=== PATIENT | male | born 1940 | race Caucasian/White ===

== ENCOUNTER 2018-05-31 04:59 | Inpatient (IN) ==
[2018-05-31 05:52] LABS: Hematocrit 53.5 % (42.0-52.0); Hemoglobin 16.9 gm/dL (13.5-18.0); Mean Cell Volume 95.2 fl (78-100); Mean Corpuscular Hemoglobin 30.1 pg (27-31); Mean Corpuscular Hgb Conc 31.6 g/dl (32-36); Mean Platelet Volume 9.7 fl (8-11.3); Neutrophil # 10.6 K/mm3 (1.3-6.0); Neutrophil % 78.5 % (42-75.0); Platelet Count 204 K/mm3 (150-450); Red Blood Count 5.62 M/mm3 (4.7-6.0); Red Cell Distribution Width 13.8 % (11.5-14.0); White Blood Count 13.6 K/mm3 (4.0-10.5)
[2018-05-31 06:11] LABS: Prothrombin Time (Patient) 10.8 Seconds (9.1-10.7)
[2018-05-31 06:12] LABS: INR 1.09 INR (0.92-1.08)
[2018-05-31 06:19] LABS: ALT 12 U/L (19-67); AST 13 U/L (0-48); Albumin * 3.2 gm/dl (3.4-5.0); Alkaline Phosphatase * 116 U/L (50-170); Anion Gap 14.6 mmol/L (6.8-13.8); BNP * 115 pg/mL (5-650); BUN/Creatinine Ratio 13.3 (9.0-21.6); Bilirubin, Total 0.8 mg/dL (0.0-1.1); Blood Urea Nitrogen 15 mg/dL (6-23); Ca. Corrected For Albumin 8.7 mg/dL (8.4-10.2); Calcium * 8.4 mg/dL (7.9-10.9); Carbon Dioxide 23.2 mmol/L (24-32.6); Chloride 110 mmol/L (97-106); Glucose * 95 mg/dL (70-110); Potassium 3.8 mmol/L (3.4-4.6); Sodium 144 mmol/L (132-142); Total Protein 6.5 gm/dL (6.2-8.2)
[2018-05-31 06:20] LABS: Troponin I Less than 0.017 ng/mL (0.00-0.10)
--- NOTE | 2018-05-31 07:30 | ERNOTE ---
Dyspnea - Date Date of Service: 05/31/18 - General Presenting Symptoms: shortness of breath, difficulty of breathing, wheezing Time Seen by Provider: 05/31/18 05:21 Source: patient, family Exam Limitations: no limitations - Immun/Allergies/Home Medications Immunizations: IMMUNIZATION HX Immunizations Up to Date Yes History of Influenza Vaccine No Hx Pneumococcal Vaccination Yes Allergies/Adverse Reactions: Allergies carbamazepine [From Tegretol] Allergy (Mild, Verified 12/15/17 09:09) Hives Penicillins Allergy (Mild, Verified 12/15/17 09:09) Hives Home Medications: HOME MEDICATIONS Aspirin [Aspirin Chewable] 81 mg PO DAILY 09/16/12 [Last Taken Unknown] Metoprolol Tartrate [Lopressor] 12.5 mg PO BID 09/16/12 [Last Taken Unknown] Simvastatin [Zocor] 40 mg PO HS 09/16/12 [Last Taken Unknown] vitamin B complex tablet 1 tab PO DAILY 10/23/17 [Last Taken Unknown] - History of Present Illness Narrative: patient present to ed with c/o dyspnea,and 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 Severity: moderate 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 Initiating event: Reports: none Frequency of episodes: Reports: no prior episodes Modifying Factors - (Improves): Reports: nothing Modifying Factors (Worsens): Reports: nothing Associated Symptoms-Dyspnea: Reports: fever/chills, wheezing, dizziness, lightheadedness Review of Systems - Review of Systems Constitutional: Present: See HPI, weakness, fatigue, malaise EYE: Present: no symptoms reported ENT: Present: no symptoms reported Respiratory: Present: See HPI, shortness of breath, cough, wheezing Cardiology: Present: no symptoms reported Gastrointestinal/Abdominal: Present: no symptoms reported Genitourinary: Present: no symptoms reported Musculoskeletal: Present: no symptoms reported Skin: Present: no symptoms reported Neurological: Present: no symptoms reported Endocrine: Present: no symptoms reported Hematologic/Lymphatic: Present: no symptoms reported Psych: Present: no symptoms reported All Other Systems: All systems neg except as marked Medical History (Last Reviewed 05/31/18 @ 05:05 by Porsha Swain RN) GERD (gastroesophageal reflux disease) (Chronic) Onset Date: Unknown Coronary artery disease (Chronic) Onset Date: Unknown Angina pectoris, unspecified (Inactive) Onset Date: Unknown Hyperlipidemia (Chronic) Onset Date: Unknown HTN (hypertension) (Chronic) Onset Date: Unknown CHF (congestive heart failure) (Chronic) Onset Date: 03/13/16 COPD (chronic obstructive pulmonary disease) Onset Date: Unknown Acute respiratory failure with hypoxia Onset Date: Unknown Brain aneurysm Onset Date: Unknown DVT (deep venous thrombosis) Onset Date: Unknown Depression Onset Date: Unknown History of stress test Onset Date: 07/26/02 History of stress test Onset Date: 02/15/99 Kidney calculi Onset Date: Unknown Subdural hemorrhage Onset Date: ~2004 2000, 2004 3 brain aneurysms Negative Colorectal Cancer Screening using Cologuard Onset Date: 01/20/17 Surgical History: Surgical History (Last Reviewed 05/31/18 @ 05:05 by Porsha Swain RN) H/O lithotripsy (Resolved) Onset Date: Unknown History of cholecystectomy (Resolved) Onset Date: ~2006 H/O brain surgery (Resolved) Onset Date: ~2004 x3; brain aneurysm History of angioplasty Onset Date: ~1997 History of colonoscopy Onset Date: ~2000 History of coronary artery stent placement Onset Date: ~12/2008 Right. History of embolic filter insertion Onset Date: Unknown Family History: Family History (Last Reviewed 05/31/18 @ 05:05 by Porsha Swain RN) Mother Heart disease Brother Heart disease Sister Heart disease Social History: Preferred Language Khmer Do you have any cheondoism or No cultural preference? Smoking Status Former smoker Abuse History No History of abuse Psych History No pertinent hx Alcohol Use none Drug Use none (Last Updated 12/31/17 @ 23:55 by Maxi Barr DO) No Social History Section defined Physical Exam - Physical Exam General Appearance: Present: mild distress, anxious Head Exam: Present: normal inspection, no evidence of injury Eye Exam: Normal inspection: bilateral, PERRL: bilateral, EOMI: bilateral Ears, Nose, Throat: Present: normal ENT inspection, normal pharynx Neck: Present: normal inspection, nontender Respiratory: Present: respiratory distress, crackles, rales, rhonchi, wheezing Cardiovascular/Chest: Present: tachycardia Gastrointestinal/Abdominal: Present: normal bowel sounds, nontender, nondistended, soft, no organomegaly Back Exam: Present: normal inspection, normal range of motion, no CVA tenderness, no vertebral tenderness Extremity Exam: Present: normal inspection, non-tender, normal range of motion, no edema Neurological Exam: Present: alert, oriented, normal mood/affect, no motor/sensory deficits Skin Exam: Present: normal color, warm/dry Lymphatic Exam: Present: no adenopathy Progress - Date and Time Seen: Date and Time: 05/31/18 07:48 patient improved, discussed results of labs and x-rays with patient, case discussed with dr barr, accepted for admission - Results and Orders Patient's Lab Results:: I have reviewed the patient's lab results. - Vital Signs Patient's Vital Signs:: I have reviewed the patient's vital signs. Vital Signs: Vital Signs 05/31/18 05:23 05/31/18 05:26 05/31/18 05:30 Temperature 36.8 C Pulse Rate 85 75 76 Respiratory Rate 28 H 22 H Blood Pressure 147/76 161/84 H O2 Sat by Pulse Oximetry 87 L 93 05/31/18 06:11 05/31/18 07:15 Temperature Pulse Rate 73 73 Respiratory Rate 22 H 22 H Blood Pressure 166/80 H 162/67 H O2 Sat by Pulse Oximetry 96 97 - X-Ray X-Ray #1 X-Ray: chest Interpretation: Interp. by me - pneumonia - CT/Ultrasound CT/Ultrasound Narrative: pneumonia - Progress/Reassessment Chief Complaint: Dyspnea Progress:: Improved - Transfer of Care Expected Disposition: Admit Plan - Plan Plan: to be admitted Departure Clinical Impression: Pneumonia - Departure Disposition: Still a patient Condition: Stable Referrals: Maxi Barr DO [Primary Care Provider] -
[2018-05-31] MEDS ORDERED: ALBUTEROL SULFATE 2.5 MG/0.5 ML VIAL.NEB IH PRN (07:53)
[2018-05-31] MEDS: AZITHROMYCIN 500 MG in DEXTROSE 5 % IN WATER 250 ML IV SCH ×2 (09:13)
--- NOTE | 2018-05-31 16:35 | HP ---
Chief Complaint - Chief Complaint Date of Service: 05/31/18 Time of Service: 12:30 Chief Complaint: Shortness of breath, cough History of Present Illness: Horace is a 78 yo male that presents to the [facility] ER today with suddenly worsened respiratory symptoms of cough, shortness of breath, and hemoptysis that started at 0300 this morning. He reported his first sign of symptoms started two weeks ago with cough. He has progressively been getting weaker and more short of breath until his episode this morning that brought him to the ER. He denies recent travel or sick contacts. He denies GI symptom, fever, chills, or myalgias. In the ER he had a chest xray that showed right upper lobe pneumonia on top of chronic lung disease. He also had a d-dimer that along with the shortness of breath and hemoptysis warranted an evaluation with a chest CT. CT confirmed right upper lobe pneumonia and no evidence of pulmonary embolism. He was initially 87% on room air in the ER and placed on 2lpm to keep sats above 90% Medical History (Last Reviewed 05/31/18 @ 08:56 by Chayo Moran RN) GERD (gastroesophageal reflux disease) (Chronic) Onset Date: Unknown Coronary artery disease (Chronic) Onset Date: Unknown Angina pectoris, unspecified (Inactive) Onset Date: Unknown Hyperlipidemia (Chronic) Onset Date: Unknown HTN (hypertension) (Chronic) Onset Date: Unknown CHF (congestive heart failure) (Chronic) Onset Date: 03/13/16 COPD (chronic obstructive pulmonary disease) Onset Date: Unknown Acute respiratory failure with hypoxia Onset Date: Unknown Brain aneurysm Onset Date: Unknown DVT (deep venous thrombosis) Onset Date: Unknown Depression Onset Date: Unknown History of stress test Onset Date: 07/26/02 History of stress test Onset Date: 02/15/99 Kidney calculi Onset Date: Unknown Subdural hemorrhage Onset Date: ~2004 2000, 2004 3 brain aneurysms Negative Colorectal Cancer Screening using Cologuard Onset Date: 01/20/17 Surgical History: Surgical History (Last Reviewed 05/31/18 @ 08:56 by Chayo Moran RN) H/O lithotripsy (Resolved) Onset Date: Unknown History of cholecystectomy (Resolved) Onset Date: ~2006 H/O brain surgery (Resolved) Onset Date: ~2004 x3; brain aneurysm History of angioplasty Onset Date: ~1997 History of colonoscopy Onset Date: ~2000 History of coronary artery stent placement Onset Date: ~12/2008 Right. History of embolic filter insertion Onset Date: Unknown Family History: Family History (Last Reviewed 05/31/18 @ 05:05 by Porsha Swain RN) Mother Heart disease Brother Heart disease Sister Heart disease Social History: Patient Lives/Resources With Spouse Utilized Occupation retired Preferred Language Tongan Do you have any taoist or No cultural preference? Smoking Status Former smoker Have you smoked in the past 12 No months Abuse History No History of abuse Psych History No pertinent hx Alcohol Use none Drug Use none (Last Updated 12/31/17 @ 23:55 by Maxi Whaley DO) No Social History Section defined Review Of Systems (GEN) - Review of Systems Generalized/Overall Review: Present: Weakness, Fatigue. Absent: Chills, Fever EENTM: Present: No Symptoms Reported Respiratory: Present: Cough, Shortness of Breath, Other - hemoptysis Cardiac: Absent: Chest Pain, Palpitations, Syncope Abdominal: Absent: Nausea, Vomiting, Diarrhea Genitourinary: Present: No Symptoms Reported Musculoskeletal: Present: No Symptoms Reported Neurological: Present: No Symptoms Reported Skin: Present: No Symptoms Reported Immunizations: IMMUNIZATION HX Immunizations Up to Date Yes History of Influenza Vaccine No Hx Pneumococcal Vaccination Yes Allergies/Adverse Reactions: Allergies Allergy/AdvReac Type Severity Reaction Status Date / Time carbamazepine [From Tegretol] Allergy Mild Hives Verified 05/31/18 08:56 Penicillins Allergy Mild Hives Verified 05/31/18 08:56 Home Medications: HOME MEDICATIONS Aspirin [Aspirin Chewable] 81 mg PO DAILY 09/16/12 [Last Taken 05/30/18] Metoprolol Tartrate [Lopressor] 12.5 mg PO BID 09/16/12 [Last Taken 05/30/18] Simvastatin [Zocor] 40 mg PO HS 09/16/12 [Last Taken 05/30/18] vitamin B complex tablet 1 tab PO DAILY 10/23/17 [Last Taken 05/30/18] Exam - Exam Vital Signs: Vital Signs - Last Taken Temp 36.8 C 05/31/18 10:00 Pulse 63 05/31/18 15:20 Resp 20 05/31/18 15:20 BP 134/64 05/31/18 15:20 Pulse Ox 92 L 05/31/18 15:20 Constitutional: Present: Alert, Oriented x3, Cooperative, Mild distress - Tachypnea ENT Exam: Present: normal ENT inspection Eye Exam: bilateral eye: normal inspection Respiratory: Present: respiratory distress - tachypnea, wheezing - right upper lobe Cardiovascular/Chest: Present: regular rate, rhythm, no murmur Peripheral Pulses: radial (R): 2+, radial (L): 2+ Abdomen: Present: Normal bowel sounds, soft, nontender, nondistended Skin Exam: Present: normal color, warm/dry, no cyanosis Neurologic: Present: no motor/sensory deficits, alert, normal mood/affect, oriented x 3 Appearance: Present: appropriate appearance, appropriate insight Eye contact: Present: cooperative, good eye contact, normal speech Diagnostic Studies: Abnormal Lab Results 05/31/18 05/31/18 05/31/18 Range/Units 05:26 05:29 05:50 WBC 13.6 H (4.0-10.5) K/mm3 Hct 53.5 H (42.0-52.0) % MCHC 31.6 L (32-36) g/dl Immature Gran # (Auto) 0.05 H (0.000-0.0310) K/mm3 Neutrophils % 78.5 H (42-75.0) % Lymphocytes % 12.5 L (20-51) % Neutrophils # 10.6 H (1.3-6.0) K/mm3 Monocytes # 1.1 H (0.0-1.0) k/mm3 PT 10.8 H (9.1-10.7) Seconds INR (Anticoag Therapy) 1.09 H (0.92-1.08) INR D-Dimer (0.19-0.49) ug/mL pCO2 (35.0-48.0) mmHg pO2 (83.0-108.0) mmHg HCO3 (21.0-28.0) mmol/L Base Excess (-2.0-3.0) mmol/L ABG pH (7.35-7.45) Sodium 144 H (132-142) mmol/L Plasma Sodium 144 H (130-142) mmol/L Chloride 110 H (97-106) mmol/L Carbon Dioxide 23.2 L (24-32.6) mmol/L Anion Gap 14.6 H (6.8-13.8) mmol/L ALT 12 L (19-67) U/L Albumin 3.2 L (3.4-5.0) gm/dl 05/31/18 05/31/18 Range/Units 05:50 06:20 WBC (4.0-10.5) K/mm3 Hct (42.0-52.0) % MCHC (32-36) g/dl Immature Gran # (Auto) (0.000-0.0310) K/mm3 Neutrophils % (42-75.0) % Lymphocytes % (20-51) % Neutrophils # (1.3-6.0) K/mm3 Monocytes # (0.0-1.0) k/mm3 PT (9.1-10.7) Seconds INR (Anticoag Therapy) (0.92-1.08) INR D-Dimer 0.53 H (0.19-0.49) ug/mL pCO2 26.2 L (35.0-48.0) mmHg pO2 64.8 L (83.0-108.0) mmHg HCO3 18.5 L (21.0-28.0) mmol/L Base Excess -3.3 L (-2.0-3.0) mmol/L ABG pH 7.47 H (7.35-7.45) Sodium (132-142) mmol/L Plasma Sodium (130-142) mmol/L Chloride (97-106) mmol/L Carbon Dioxide (24-32.6) mmol/L Anion Gap (6.8-13.8) mmol/L ALT (19-67) U/L Albumin (3.4-5.0) gm/dl Laboratory Results WBC 13.6 K/mm3 (4.0-10.5) H 05/31/18 05:26 RBC 5.62 M/mm3 (4.7-6.0) 05/31/18 05:26 Hgb 16.9 gm/dL (13.5-18.0) 05/31/18 05:26 Hct 53.5 % (42.0-52.0) H 05/31/18 05:26 MCV 95.2 fl (78-100) 05/31/18 05:26 MCH 30.1 pg (27-31) 05/31/18 05:26 MCHC 31.6 g/dl (32-36) L 05/31/18 05:26 RDW 13.8 % (11.5-14.0) 05/31/18 05:26 Plt Count 204 K/mm3 (150-450) 05/31/18 05:26 MPV 9.7 fl (8-11.3) 05/31/18 05:26 Immature Gran % (Auto) 0.40 % (0.001-0.429) 05/31/18 05:26 Immature Gran # (Auto) 0.05 K/mm3 (0.000-0.0310) H 05/31/18 05:26 Neutrophils % 78.5 % (42-75.0) H 05/31/18 05:26 Lymphocytes % 12.5 % (20-51) L 05/31/18 05:26 Monocytes % 7.7 % (0.0-9) 05/31/18 05:26 Eosinophils % 0.5 % (0.0-3.0) 05/31/18 05:26 Basophils % 0.4 % (0.0-1.0) 05/31/18 05:26 Nucleated RBC % 0.0 k/mm3 (0-1) 05/31/18 05:26 Neutrophils # 10.6 K/mm3 (1.3-6.0) H 05/31/18 05:26 Lymphocytes # 1.69 k/mm3 (1.5-3.5) 05/31/18 05:26 Monocytes # 1.1 k/mm3 (0.0-1.0) H 05/31/18 05:26 Eosinophils # 0.1 k/mm3 (0.0-0.7) 05/31/18 05:26 Absolute Basophils 0.1 k/mm3 (0.0-0.1) 05/31/18 05:26 PT 10.8 Seconds (9.1-10.7) H 05/31/18 05:29 INR (Anticoag Therapy) 1.09 INR (0.92-1.08) H 05/31/18 05:29 PTT (Roman) 26.0 Seconds (24-32) 05/31/18 05:50 D-Dimer 0.53 ug/mL (0.19-0.49) H 05/31/18 05:50 pCO2 26.2 mmHg (35.0-48.0) L 05/31/18 06:20 pO2 64.8 mmHg (83.0-108.0) L 05/31/18 06:20 HCO3 18.5 mmol/L (21.0-28.0) L 05/31/18 06:20 Total CO2 19.3 mmol/L (19.0-24.0) 05/31/18 06:20 Base Excess -3.3 mmol/L (-2.0-3.0) L 05/31/18 06:20 ABG pH 7.47 (7.35-7.45) H 05/31/18 06:20 ABG O2 Sat (Measured) 94.2 % (94.0-98.0) 05/31/18 06:20 Sodium 144 mmol/L (132-142) H 05/31/18 05:50 Plasma Sodium 144 mmol/L (130-142) H 05/31/18 05:50 Potassium 3.8 mmol/L (3.4-4.6) 05/31/18 05:50 Chloride 110 mmol/L (97-106) H 05/31/18 05:50 Carbon Dioxide 23.2 mmol/L (24-32.6) L 05/31/18 05:50 Anion Gap 14.6 mmol/L (6.8-13.8) H 05/31/18 05:50 BUN 15 mg/dL (6-23) 05/31/18 05:50 Creatinine 1.13 mg/dL (0.4-1.4) 05/31/18 05:50 Est GFR (Non-Af Amer) 67 mL/min (60-130) 05/31/18 05:50 BUN/Creatinine Ratio 13.3 (9.0-21.6) 05/31/18 05:50 Random Glucose 95 mg/dL (70-110) 05/31/18 05:50 Calcium 8.4 mg/dL (7.9-10.9) 05/31/18 05:50 Calcium Adj for Albumin 8.7 mg/dL (8.4-10.2) 05/31/18 05:50 Total Bilirubin 0.8 mg/dL (0.0-1.1) 05/31/18 05:50 AST 13 U/L (0-48) 05/31/18 05:50 ALT 12 U/L (19-67) L 05/31/18 05:50 Alkaline Phosphatase 116 U/L (50-170) 05/31/18 05:50 Troponin I Less than 0.017 ng/mL (0.00-0.10) 05/31/18 05:50 B-Natriuretic Peptide 115 pg/mL (5-650) 05/31/18 05:50 Total Protein 6.5 gm/dL (6.2-8.2) 05/31/18 05:50 Albumin 3.2 gm/dl (3.4-5.0) L 05/31/18 05:50 Assessment/Plan - Assessment/Plan (1) Acute respiratory failure Problem: Acute Qualifiers: Respiratory failure complication: hypoxia Qualified Code(s): J96.01 - Acute respiratory failure with hypoxia (2) Pneumonia Assessment: Horace is a 78 yo male with community acquired pneumonia of the right upper lobe. No exposure or symptoms concerning for influenza. Will treat with azithromycin, rocephin, incentive spirometer, and cornet. Will monitor WBC which is elevated. Due to acute respiratory failure secondary to pneumonia, advanced age, and hemoptysis it is expected that treatment will require >2 midnights for treatment, monitoring of response, weaning off oxygen, and discharge to home. Currently on 2lpm to keep sats >90% after he was 87% on room air. Will work to wean from oxygen. Problem: Acute Qualifiers: Pneumonia type: due to unspecified organism Laterality: right Lung location: upper lobe of lung Qualified Code(s): J18.1 - Lobar pneumonia, unspecified organism
[2018-05-31] MEDS: METOPROLOL TARTRATE 25 MG TABLET PO SCH (21:21)
[2018-05-31] MEDS: SIMVASTATIN 40 MG TABLET PO SCH (21:21)
[2018-06-01 06:06] LABS: Albumin * 2.8 gm/dl (3.4-5.0); Anion Gap 12.7 mmol/L (6.8-13.8); BUN/Creatinine Ratio 14.9 (9.0-21.6); Bilirubin, Total 0.7 mg/dL (0.0-1.1); Ca. Corrected For Albumin 9.2 mg/dL (8.4-10.2); Calcium * 8.6 mg/dL (7.9-10.9); Carbon Dioxide 22.1 mmol/L (24-32.6); Potassium 3.8 mmol/L (3.4-4.6); Total Protein 6.1 gm/dL (6.2-8.2)
[2018-06-01 06:08] LABS: Hematocrit 48.2 % (42.0-52.0); Hemoglobin 15.2 gm/dL (13.5-18.0); Mean Cell Volume 92.5 fl (78-100); Mean Corpuscular Hemoglobin 29.2 pg (27-31); Mean Corpuscular Hgb Conc 31.5 g/dl (32-36); Mean Platelet Volume 9.8 fl (8-11.3); Neutrophil # 6.2 K/mm3 (1.3-6.0); Neutrophil % 69.2 % (42-75.0); Platelet Count 193 K/mm3 (150-450); Red Blood Count 5.21 M/mm3 (4.7-6.0); Red Cell Distribution Width 13.8 % (11.5-14.0); White Blood Count 8.9 K/mm3 (4.0-10.5)
[2018-06-01] MEDS: AZITHROMYCIN 500 MG in DEXTROSE 5 % IN WATER 250 ML IV SCH ×2 (08:15)
[2018-06-01] MEDS: METOPROLOL TARTRATE 25 MG TABLET PO SCH ×2 (08:47→20:43)
[2018-06-01] MEDS: ASPIRIN 81 MG TAB.CHEW PO SCH (08:47)
[2018-06-01] MEDS: VITAMIN B COMP W-C 1 TAB TABLET PO SCH (08:47)
[2018-06-01] MEDS: SIMVASTATIN 40 MG TABLET PO SCH (20:43)
--- NOTE | 2018-06-01 22:46 | PN ---
Subjective - Date and Time Seen Date: 06/01/18 Time: 12:45 Subjective Narrative: Horace reports feeling better. He was weaned off of oxygen this morning. He has not done much ambulating today. No fever, chills, nausea, or vomiting. Objective - Vitals Vitals: Last Vital Signs Temp 36.6 C 06/01/18 18:16 Pulse 73 06/01/18 20:43 Resp 20 06/01/18 18:16 BP 133/76 06/01/18 20:43 Pulse Ox 92 L 06/01/18 18:16 - Abnormal Lab Findings Abnormal Lab Findings: Abnormal Lab Results 06/01/18 06/01/18 Range/Units 05:05 05:05 MCHC 31.5 L (32-36) g/dl Immature Gran # (Auto) 0.04 H (0.000-0.0310) K/mm3 Lymphocytes % 18.0 L (20-51) % Monocytes % 10.7 H (0.0-9) % Neutrophils # 6.2 H (1.3-6.0) K/mm3 Chloride 109 H (97-106) mmol/L Carbon Dioxide 22.1 L (24-32.6) mmol/L ALT 9 L (19-67) U/L Total Protein 6.1 L (6.2-8.2) gm/dL Albumin 2.8 L (3.4-5.0) gm/dl - Exam Constitutional: Present: Alert, Oriented x3, Cooperative ENT Exam: Present: TM red Respiratory: Present: lungs clear, normal breath sounds Cardiovascular/Chest: Present: regular rate, rhythm, no edema, no murmur Abdomen: Present: Normal bowel sounds, soft, nontender, nondistended Appearance: Present: appropriate appearance, appropriate insight Assessment/Plan Plan Narrative: Horace has beenweaned off of oxygen at rest. Will need to monitor oxygen with activity and overnight. His WBC has normalized. He has not ambulated. Will have him ambulate and monitor oxygen and monitor how he does with oxygen overnight. Anticipate discharge to home tomorrow on oral cefdinir and azithromycin. - Problems/Diagnosis (1) Acute respiratory failure Problem: Acute Qualifiers: Respiratory failure complication: hypoxia Qualified Code(s): J96.01 - Acute respiratory failure with hypoxia (2) Pneumonia Problem: Acute Qualifiers: Pneumonia type: due to unspecified organism Laterality: right Lung location: upper lobe of lung Qualified Code(s): J18.1 - Lobar pneumonia, unspecified organism
[2018-06-02] MEDS: AZITHROMYCIN 500 MG in DEXTROSE 5 % IN WATER 250 ML IV SCH ×2 (08:00)
[2018-06-02] MEDS: VITAMIN B COMP W-C 1 TAB TABLET PO SCH (08:28)
[2018-06-02] MEDS: ASPIRIN 81 MG TAB.CHEW PO SCH (08:28)
[2018-06-02] MEDS: METOPROLOL TARTRATE 25 MG TABLET PO SCH (08:28)
--- NOTE | 2018-06-02 08:59 | DS ---
(1) Acute respiratory failure Problem: Resolved Qualifiers: Respiratory failure complication: hypoxia Qualified Code(s): J96.01 - Acute respiratory failure with hypoxia (2) Pneumonia Problem: Acute Qualifiers: Pneumonia type: due to unspecified organism Laterality: right Lung location: upper lobe of lung Qualified Code(s): J18.1 - Lobar pneumonia, unspecified organism Description of Stay: Horace is a 78 yo male that was admitted with acute respiratory failure secondary to community acquired pneumonia of the Right upper lobe. This was confirmed by chest xray and chest CT. He had no pulmonary embolism. He was started on rocephin and azithromycin, cornet, and incentive spirometer. He was g radually weaned off 2lpm of oxygen to room air and did well. He is feeling well today and will be discharged to home. He will follow up in a week. He will be continued on cefdinir and azithromycin. Procedures Performed: none Results and Findings: Pending Mircobiology Results 05/31/18 05:50 Blood Blood Culture - Preliminary NO GROWTH AFTER 48 HOURS 05/31/18 05:40 Blood Blood Culture - Preliminary NO GROWTH AFTER 48 HOURS Lab Pending Results 05/31/18 05:26: WBC 13.6 H, RBC 5.62, Hgb 16.9, Hct 53.5 H, MCV 95.2, MCH 30.1, MCHC 31.6 L, RDW 13.8, Plt Count 204, MPV 9.7, Immature Gran % (Auto) 0.40, Immature Gran # (Auto) 0.05 H, Neutrophils % 78.5 H, Lymphocytes % 12.5 L, Monocytes % 7.7, Eosinophils % 0.5, Basophils % 0.4, Nucleated RBC % 0.0, Neutrophils # 10.6 H, Lymphocytes # 1.69, Monocytes # 1.1 H, Eosinophils # 0.1, Absolute Basophils 0.1 05/31/18 05:29: PT 10.8 H, INR (Anticoag Therapy) 1.09 H 05/31/18 05:50: Sodium 144 H, Plasma Sodium 144 H, Potassium 3.8, Chloride 110 H, Carbon Dioxide 23.2 L, Anion Gap 14.6 H, BUN 15, Creatinine 1.13, Est GFR (Non-Af Amer) 67, BUN/Creatinine Ratio 13.3, Random Glucose 95, Calcium 8.4, Calcium Adj for Albumin 8.7, Total Bilirubin 0.8, AST 13, ALT 12 L, Alkaline Phosphatase 116, Troponin I Less than 0.017, B-Natriuretic Peptide 115, Total Protein 6.5, Albumin 3.2 L 05/31/18 05:50: D-Dimer 0.53 H 05/31/18 05:50: PTT (Cuming) 26.0 05/31/18 06:20: pCO2 26.2 L, pO2 64.8 L, HCO3 18.5 L, Total CO2 19.3, Base Excess -3.3 L, ABG pH 7.47 H, ABG O2 Sat (Measured) 94.2 06/01/18 05:05: WBC 8.9 D, RBC 5.21, Hgb 15.2, Hct 48.2, MCV 92.5, MCH 29.2, MCHC 31.5 L, RDW 13.8, Plt Count 193, MPV 9.8, Immature Gran % (Auto) 0.40, Immature Gran # (Auto) 0.04 H, Neutrophils % 69.2, Lymphocytes % 18.0 L, Monocytes % 10.7 H, Eosinophils % 1.1, Basophils % 0.6, Nucleated RBC % 0.0, Neutrophils # 6.2 H, Lymphocytes # 1.61, Monocytes # 1.0, Eosinophils # 0.1, Absolute Basophils 0.1 06/01/18 05:05: Sodium 140, Plasma Sodium 140, Potassium 3.8, Chloride 109 H, Carbon Dioxide 22.1 L, Anion Gap 12.7, BUN 14, Creatinine 0.94, Est GFR (Non-Af Amer) 83 D, BUN/Creatinine Ratio 14.9, Random Glucose 99, Calcium 8.6, Calcium Adj for Albumin 9.2, Total Bilirubin 0.7, AST 16, ALT 9 L, Alkaline Phosphatase 100, Total Protein 6.1 L, Albumin 2.8 L Discharge Location: Home Disposition: Home self-care Condition: Good Discharge Activity: Activity as tolerated Discharge Diet: General/regular food Referrals: Maxi Whaley DO [Primary Care Provider] - One Week Problem Oriented Discharge Instructions to Patient/Family: Community-Acquired Pneumonia, Adult, [id number] Additional Patient Instructions (free text): -Please make TCM appointment unless intermediate discharge. Thank you! Norma @ [phone]. Prescriptions (Any new or edited meds): Azithromycin [Zithromax] 250 mg PO DAILY #3 tab Cefdinir [Omnicef] 300 mg PO Q12H #20 cap Complete Home Medications List: Complete Home Medication List: Aspirin [Aspirin Chewable] 81 mg PO DAILY 09/16/12 Metoprolol Tartrate [Lopressor] 12.5 mg PO BID 09/16/12 Simvastatin [Zocor] 40 mg PO HS 09/16/12 vitamin B complex tablet 1 tab PO DAILY 10/23/17 Azithromycin [Zithromax] 250 mg PO DAILY #3 tab 06/02/18 Cefdinir [Omnicef] 300 mg PO Q12H #20 cap 06/02/18
[2018-06-02 09:56] VITALS: BP 138/70
== END 2018-06-02 10:00 | disposition home or self-care (01) | DRG 193 ==
LOC: ER 04:59 → MS 07:48
PROVIDERS: ADMIT Family Medicine; ATTEND Family Medicine
CPT/HCPCS: 36415; 36600; 71020; 71046; 71275; 80053; 82803; 83519; 83880; 84484; 85025; 85379; 85610; 85730; 87040; 93005; 94760; 99284; Q9967

== ENCOUNTER 2019-03-11 02:32 | Observation (INO) ==
[2019-03-11] MEDS ORDERED: NITROGLYCERIN 0.4 MG/TAB BTL SL PRN (02:51)
[2019-03-11] MEDS ORDERED: ASPIRIN 81 MG TAB.CHEW PO ONE (02:55)
--- NOTE | 2019-03-11 03:09 | ERNOTE ---
Chest Pain/Cardiac HPI Chief Complaint: Chest Pain Time Seen by Provider: 03/11/19 02:38 Source: patient Exam Limitations: no limitations Immunizations: IMMUNIZATION HX Immunizations Up to Date Yes History of Influenza Vaccine No Hx Pneumococcal Vaccination Yes Allergies/Adverse Reactions: Allergies carbamazepine [From Tegretol] Allergy (Mild, Verified 05/31/18 08:56) Hives Penicillins Allergy (Mild, Verified 05/31/18 08:56) Hives Home Medications: HOME MEDICATIONS Aspirin [Aspirin Chewable] 81 mg PO DAILY 09/16/12 [Last Taken 05/30/18] metoprolol tartrate 25 mg tablet 12.5 mg PO BID #90 tab 06/09/18 [Last Taken Unknown] simvastatin 40 mg tablet 40 mg PO HS #90 tab 06/09/18 [Last Taken Unknown] omeprazole 20 mg capsule,delayed release 20 mg PO DAILY 12/13/18 [Last Taken Unknown] Narrative: Patient states states he awoke about 00:30 to use the bathroom and had a pressure type chest pain on the left side. He tried resting which did not seem to help. Upon presentation his O2 saturations in the low 80% patient had res pirations of 40/min. Timing: constant Severity/Quality: pressure Location: left chest Chest Pain Radiation: no radiation Activities at Onset: sleep Modifying Factors - Improves: Present: nothing Modifying Factors - Worsens: Present: other - activity Nitro Today/Relief: no nitro taken today Aspirin Treatment Today: 81 mg x 1, provided at home Associated Symptoms: Present: shortness of breath - for the past week Review of Systems - Review of Systems Constitutional: Present: recent illness - cold. Absent: fever, chills, fatigue, malaise EYE: Absent: vision changes ENT: Present: nose congestion, nasal drainage. Absent: sore throat Respiratory: Present: See HPI, shortness of breath Cardiology: Present: See HPI, chest pain. Absent: palpitations, edema Gastrointestinal/Abdominal: Absent: nausea, vomiting Genitourinary: Absent: frequency, dysuria Musculoskeletal: Absent: back pain, muscle pain Skin: Absent: rash Neurological: Absent: headache, dizziness/light-headedness Endocrine: Absent: excessive sweating, flushing Hematologic/Lymphatic: Absent: easy bruising, easy bleeding Medical History (Last Reviewed 03/11/19 @ 03:07 by Kenroy Hollins DO) COPD (chronic obstructive pulmonary disease) (Chronic) GERD (gastroesophageal reflux disease) (Chronic) Onset Date: Unknown Coronary artery disease (Chronic) Onset Date: Unknown Angina pectoris, unspecified (Inactive) Onset Date: Unknown Hyperlipidemia (Chronic) Onset Date: Unknown HTN (hypertension) (Chronic) Onset Date: Unknown CHF (congestive heart failure) (Chronic) Onset Date: 03/13/16 COPD (chronic obstructive pulmonary disease) Onset Date: Unknown Acute respiratory failure with hypoxia Onset Date: Unknown Brain aneurysm Onset Date: Unknown DVT (deep venous thrombosis) Onset Date: Unknown Depression Onset Date: Unknown History of stress test Onset Date: 07/26/02 History of stress test Onset Date: 02/15/99 Kidney calculi Onset Date: Unknown Subdural hemorrhage Onset Date: ~2004 2000, 2004 3 brain aneurysms Negative Colorectal Cancer Screening using Cologuard Onset Date: 01/20/17 Surgical History: Surgical History (Last Reviewed 03/11/19 @ 03:07 by Kenroy Hollins DO) H/O lithotripsy (Resolved) Onset Date: Unknown History of cholecystectomy (Resolved) Onset Date: ~2006 H/O brain surgery (Resolved) Onset Date: ~2004 x3; brain aneurysm History of angioplasty Onset Date: ~1997 History of colonoscopy Onset Date: ~2000 History of coronary artery stent placement Onset Date: ~12/2008 Right. History of embolic filter insertion Onset Date: Unknown Family History: Family History (Last Reviewed 03/11/19 @ 03:07 by Kenroy Hollins DO) Mother Heart disease Brother Heart disease Sister Heart disease Social History: (Last Reviewed 03/11/19 @ 03:07 by Kenroy Hollins DO) Social History: adopted: No group home: No Marital status: household members: spouse number of children: 2 current occupational status: retired Service: Yes branch: [employer] status: discharged assignments: [employer] Tobacco: Smoking Status: Former smoker Alcohol: alcohol intake: current Alcohol type: beer alcohol intake frequency: holiday/special occasion Dietary Habits: caffeine: Yes Type: coffee Physical Exam - Physical Exam General Appearance: Present: wd/wn, alert, mild distress Head Exam: Present: normal inspection, no evidence of injury Ears, Nose, Throat: Present: normal except -, nasal congestion Neck: Present: normal inspection, nontender, supple Respiratory: Present: decreased breath sounds, other - tachypnea. Absent: wheezing Cardiovascular/Chest: Present: regular rate, rhythm, no murmur Gastrointestinal/Abdominal: Present: normal bowel sounds, nontender, nondistended, soft Back Exam: Present: normal inspection, normal range of motion Extremity Exam: Present: normal inspection, normal range of motion, no edema Neurological Exam: Present: alert, oriented, normal mood/affect, no motor/sensory deficits Skin Exam: Present: normal color, warm/dry Lymphatic Exam: Present: no adenopathy Progress - Results and Orders Patient's Lab Results:: I have reviewed the patient's lab results. Results and Orders: Laboratory Tests 03/11/19 03/11/19 03/11/19 03:45 03:45 03:45 WBC 9.0 Hgb 13.4 L Hct 43.2 Plt Count 237 D-Dimer 1.47 H Sodium 145 H Potassium 4.0 Chloride 113 H Carbon Dioxide 22.6 L BUN 18 Creatinine 1.09 Random Glucose 105 Calcium 8.2 Total Bilirubin 0.7 AST 12 ALT 11 L Alkaline Phosphatase 107 Troponin I 0.034 Total Protein 6.2 Albumin 2.7 L 03/11/19 05:45 WBC Hgb Hct Plt Count D-Dimer Sodium Potassium Chloride Carbon Dioxide BUN Creatinine Random Glucose Calcium Total Bilirubin AST ALT Alkaline Phosphatase Troponin I 0.023 Total Protein Albumin - Vital Signs Patient's Vital Signs:: I have reviewed the patient's vital signs. Vital Signs: Vital Signs 03/11/19 02:38 Temperature 36.1 C Pulse Rate 86 Respiratory Rate 20 Blood Pressure 141/76 O2 Sat by Pulse Oximetry 96 - EKG EKG #1 EKG: NSR, RBBB, nonspecific ST T wave changes EKG read: Interp. by me - X-Ray X-Ray #1 X-Ray: chest Interpretation: Interp. by me X-ray Comments: Possible infiltrate left lower lobe retrocardiac - CT/Ultrasound CT/Ultrasound Narrative: CTA chest. 1. No thoracic aortic aneurysm. 2. No definite pulmonary embolus noted. 3. Moderately dense LAD and circumflex coronary artery vascular calcium noted. No pericardial effusion. 4. Moderate bilateral pleural effusions with patchy lower lung zone infiltrates greater on the left - Progress/Reassessment Chief Complaint: Chest Pain Progress:: Improved Progress Note-Subjective: 03/11/19 07:[address] Whaley he agrees with admission with antibiotics and steroids. Departure Clinical Impression: Acute exacerbation of chronic obstructive pulmonary disease (COPD) - Departure Disposition: Still a patient Condition: Stable
[2019-03-11 03:47] LABS: Hematocrit 43.2 % (42.0-52.0); Hemoglobin 13.4 gm/dL (13.5-18.0); Mean Cell Volume 87.8 fl (78-100); Mean Corpuscular Hemoglobin 27.2 pg (27-31); Mean Platelet Volume 9.6 fl (8-11.3); Neutrophil # 6.8 K/mm3 (1.3-6.0); Neutrophil % 75.3 % (42-75.0); Platelet Count 237 K/mm3 (150-450); Red Blood Count 4.92 M/mm3 (4.7-6.0); Red Cell Distribution Width 14.6 % (11.5-14.0)
[2019-03-11 04:04] LABS: BUN/Creatinine Ratio 16.5 (9.0-21.6)
[2019-03-11 04:05] LABS: Albumin * 2.7 gm/dl (3.4-5.0); Anion Gap 13.4 mmol/L (6.8-13.8); Bilirubin, Total 0.7 mg/dL (0.0-1.1); Ca. Corrected For Albumin 8.9 mg/dL (8.4-10.2); Calcium * 8.2 mg/dL (7.9-10.9); Carbon Dioxide 22.6 mmol/L (24-32.6); Total Protein 6.2 gm/dL (6.2-8.2); Troponin I 0.034 ng/mL (0.00-0.10)
[2019-03-11] MEDS ORDERED: METHYLPREDNISOLONE SOD SUCC/PF 125 MG/2 ML VIAL IV ONE (07:02)
[2019-03-11] MEDS ORDERED: cefTRIAXone SODIUM 1,000 MG/100 ML BAG IV ONE (07:02)
[2019-03-11] MEDS ORDERED: AZITHROMYCIN 250 MG TABLET PO ONE (07:17)
--- NOTE | 2019-03-11 13:31 | HP ---
Chief Complaint - Chief Complaint Date of Service: 03/11/19 Time of Service: 12:30 Chief Complaint: Abdominal pain, constipation, shortness of breath, chest pain History of Present Illness: Horace is a 79 yo male with pulmonary fibrosis and COPD who presents to the [facility] ER with 12 hours of abdominal pain and increase in size. He reports that it is difficult to take a deep breath in due to his abdomen and that makes him more short of breath than usual. He reports he has been passing gas and had a good bowel movement this morning but it has not improved his symptoms. She denies change in cough, fever, chills, nausea, or vomiting. He presented to the ER for continued abdominal pain and shortness of breath. He also reported chest discomfort in the ER. EKG, bloodwork, chest xray, and chest CT were completed in the ER to evaluate chest pain and shortness of breath. He had an elevated ddimer that precipitated the evaluation by chest CT. There was no pulmonary embolism present. There is pulmonary fibrosis and bilateral atelectasis. There is no evidence of infiltrate. In the ER he is reported to have walked in on room air and his SpO2 was 80%. He was placed on 3lpm of oxygen and has been about 95% or above ever since. He typically runs 88-92% in clinic and is not chronically on oxygen. Medical History (Last Reviewed 03/11/19 @ 03:07 by Kenroy Hollins DO) COPD (chronic obstructive pulmonary disease) (Chronic) GERD (gastroesophageal reflux disease) (Chronic) Onset Date: Unknown Coronary artery disease (Chronic) Onset Date: Unknown Angina pectoris, unspecified (Inactive) Onset Date: Unknown Hyperlipidemia (Chronic) Onset Date: Unknown HTN (hypertension) (Chronic) Onset Date: Unknown CHF (congestive heart failure) (Chronic) Onset Date: 03/13/16 COPD (chronic obstructive pulmonary disease) Onset Date: Unknown Acute respiratory failure with hypoxia Onset Date: Unknown Brain aneurysm Onset Date: Unknown DVT (deep venous thrombosis) Onset Date: Unknown Depression Onset Date: Unknown History of stress test Onset Date: 07/26/02 History of stress test Onset Date: 02/15/99 Kidney calculi Onset Date: Unknown Subdural hemorrhage Onset Date: ~2004 2000, 2004 3 brain aneurysms Negative Colorectal Cancer Screening using Cologuard Onset Date: 01/20/17 Surgical History: Surgical History (Last Reviewed 03/11/19 @ 03:07 by Kenroy Hollins DO) H/O lithotripsy (Resolved) Onset Date: Unknown History of cholecystectomy (Resolved) Onset Date: ~2006 H/O brain surgery (Resolved) Onset Date: ~2004 x3; brain aneurysm History of angioplasty Onset Date: ~1997 History of colonoscopy Onset Date: ~2000 History of coronary artery stent placement Onset Date: ~12/2008 Right. History of embolic filter insertion Onset Date: Unknown Family History: Family History (Last Reviewed 03/11/19 @ 03:07 by Kenroy Hollins DO) Mother Heart disease Brother Heart disease Sister Heart disease Social History: (Last Reviewed 03/11/19 @ 03:07 by Kenroy Hollins DO) Social History: adopted: No long term: No Marital status: household members: spouse number of children: 2 current occupational status: retired Service: Yes branch: [employer] status: discharged assignments: [employer] Tobacco: Smoking Status: Former smoker Alcohol: alcohol intake: current Alcohol type: beer alcohol intake frequency: holiday/special occasion Dietary Habits: caffeine: Yes Type: coffee Review Of Systems (GEN) - Review of Systems Generalized/Overall Review: Present: Weakness. Absent: Chills, Fever EENTM: Present: No Symptoms Reported Respiratory: Present: Shortness of Breath. Absent: Cough Cardiac: Present: Chest Pain. Absent: Edema, Palpitations, Syncope Abdominal: Present: Abdominal Pain, Constipation. Absent: Nausea, Vomiting, Hematemesis, Diarrhea, Melena, Bright blood from rectum Genitourinary: Present: No Symptoms Reported Musculoskeletal: Present: No Symptoms Reported Neurological: Present: No Symptoms Reported Skin: Present: No Symptoms Reported Endocrine: Present: No Symptoms Reported Immunizations: IMMUNIZATION HX Immunizations Up to Date Yes History of Influenza Vaccine No Hx Pneumococcal Vaccination Yes Allergies/Adverse Reactions: Allergies Allergy/AdvReac Type Severity Reaction Status Date / Time carbamazepine [From Tegretol] Allergy Mild Hives Verified 05/31/18 08:56 Penicillins Allergy Mild Hives Verified 05/31/18 08:56 Home Medications: HOME MEDICATIONS Aspirin [Aspirin Chewable] 81 mg PO DAILY 09/16/12 [Last Taken 05/30/18] metoprolol tartrate 25 mg tablet 12.5 mg PO BID #90 tab 06/09/18 [Last Taken Unknown] simvastatin 40 mg tablet 40 mg PO HS #90 tab 06/09/18 [Last Taken Unknown] omeprazole 20 mg capsule,delayed release 20 mg PO DAILY 12/13/18 [Last Taken Unknown] Exam - Exam Vital Signs: Vital Signs - Last Taken Temp 37.8 C 03/11/19 07:48 Pulse 70 03/11/19 07:48 Resp 28 H 03/11/19 07:48 BP 139/77 03/11/19 07:48 Pulse Ox 94 03/11/19 07:48 Constitutional: Present: Alert, Oriented x3, Cooperative ENT Exam: Present: hearing grossly normal Eye Exam: bilateral eye: normal inspection Respiratory: Present: lungs clear, respiratory distress - mild distress with tachypnea Cardiovascular/Chest: Present: regular rate, rhythm, no murmur Abdomen: Present: Normal bowel sounds, soft, tender - diffuse Extremity: Present: normal inspection Skin Exam: Present: normal color, warm/dry, no cyanosis Appearance: Present: appropriate appearance, appropriate insight Eye contact: Present: cooperative, good eye contact, normal speech Thoughts: Present: normal thought pattern, no apparent hallucination Diagnostic Studies: Abnormal Lab Results 03/11/19 03/11/19 03/11/19 Range/Units 03:45 03:45 03:45 Hgb 13.4 L (13.5-18.0) gm/dL MCHC 31.0 L (32-36) g/dl RDW 14.6 H (11.5-14.0) % Immature Gran # (Auto) 0.04 H (0.000-0.0310) K/mm3 Neutrophils % 75.3 H (42-75.0) % Lymphocytes % 12.9 L (20-51) % Monocytes % 10.7 H (0.0-9) % Neutrophils # 6.8 H (1.3-6.0) K/mm3 Lymphocytes # 1.16 L (1.5-3.5) k/mm3 D-Dimer 1.47 H (0.19-0.49) ug/mL Sodium 145 H (132-142) mmol/L Plasma Sodium 145 H (130-142) mmol/L Chloride 113 H (97-106) mmol/L Carbon Dioxide 22.6 L (24-32.6) mmol/L ALT 11 L (19-67) U/L Albumin 2.7 L (3.4-5.0) gm/dl Laboratory Results WBC 9.0 K/mm3 (4.0-10.5) 03/11/19 03:45 RBC 4.92 M/mm3 (4.7-6.0) 03/11/19 03:45 Hgb 13.4 gm/dL (13.5-18.0) L 03/11/19 03:45 Hct 43.2 % (42.0-52.0) 03/11/19 03:45 MCV 87.8 fl (78-100) 03/11/19 03:45 MCH 27.2 pg (27-31) 03/11/19 03:45 MCHC 31.0 g/dl (32-36) L 03/11/19 03:45 RDW 14.6 % (11.5-14.0) H 03/11/19 03:45 Plt Count 237 K/mm3 (150-450) 03/11/19 03:45 MPV 9.6 fl (8-11.3) 03/11/19 03:45 Immature Gran % (Auto) 0.40 % (0.001-0.429) 03/11/19 03:45 Immature Gran # (Auto) 0.04 K/mm3 (0.000-0.0310) H 03/11/19 03:45 Neutrophils % 75.3 % (42-75.0) H 03/11/19 03:45 Lymphocytes % 12.9 % (20-51) L 03/11/19 03:45 Monocytes % 10.7 % (0.0-9) H 03/11/19 03:45 Eosinophils % 0.4 % (0.0-3.0) 03/11/19 03:45 Basophils % 0.3 % (0.0-1.0) 03/11/19 03:45 Nucleated RBC % 0.0 k/mm3 (0-1) 03/11/19 03:45 Neutrophils # 6.8 K/mm3 (1.3-6.0) H 03/11/19 03:45 Lymphocytes # 1.16 k/mm3 (1.5-3.5) L 03/11/19 03:45 Monocytes # 1.0 k/mm3 (0.0-1.0) 03/11/19 03:45 Eosinophils # 0.0 k/mm3 (0.0-0.7) 03/11/19 03:45 Absolute Basophils 0.0 k/mm3 (0.0-0.1) 03/11/19 03:45 D-Dimer 1.47 ug/mL (0.19-0.49) H 03/11/19 03:45 Sodium 145 mmol/L (132-142) H 03/11/19 03:45 Plasma Sodium 145 mmol/L (130-142) H 03/11/19 03:45 Potassium 4.0 mmol/L (3.4-4.6) 03/11/19 03:45 Chloride 113 mmol/L (97-106) H 03/11/19 03:45 Carbon Dioxide 22.6 mmol/L (24-32.6) L 03/11/19 03:45 Anion Gap 13.4 mmol/L (6.8-13.8) 03/11/19 03:45 BUN 18 mg/dL (6-23) 03/11/19 03:45 Creatinine 1.09 mg/dL (0.4-1.4) 03/11/19 03:45 Est GFR (Non-Af Amer) 70 mL/min (60-130) 03/11/19 03:45 BUN/Creatinine Ratio 16.5 (9.0-21.6) 03/11/19 03:45 Random Glucose 105 mg/dL (70-110) 03/11/19 03:45 Calcium 8.2 mg/dL (7.9-10.9) 03/11/19 03:45 Calcium Adj for Albumin 8.9 mg/dL (8.4-10.2) 03/11/19 03:45 Total Bilirubin 0.7 mg/dL (0.0-1.1) 03/11/19 03:45 AST 12 U/L (0-48) 03/11/19 03:45 ALT 11 U/L (19-67) L 03/11/19 03:45 Alkaline Phosphatase 107 U/L (50-170) 03/11/19 03:45 Troponin I 0.023 ng/mL (0.00-0.10) 03/11/19 05:45 Total Protein 6.2 gm/dL (6.2-8.2) 03/11/19 03:45 Albumin 2.7 gm/dl (3.4-5.0) L 03/11/19 03:45 Assessment/Plan - Narrative Narrative: Horace is a 79 yo male that presented with abdominal pain, chest pain, and shortness of breath. Etiology is mixed. Overall his evaluation in the ER did show that he was hypoxic, lower than his usual oxygen saturation with his chronic pulmonary fibrosis. He does not use oxygen at home and ranges 88-92% and typically tolerates this well. He was reported to be 80% on room air initially. He was placed on 3lpm and he improved to 95%. I am not convinced that he is significantly below his baseline. Chest imaging showed atelectasis and his chronic fibrosis, but no acute process such as pneumonia. He was reported to have pneumonia in the ER and was started on antibiotics but I am not convinced of this. Will plan to discontinue antibiotics. It is possible that he has a COPD exacerbation but per his reports his shortness of breath appears to be more related to his abdominal size increase and pain. I will get an abdominal xray to evaluate for retained stool. He may need magnesium citrate if there is significant retained stool and perhaps this will improve his breathing. Will attempt to wean him off the oxygen as long as he maintains 88% or higher. I do not see any acute process that warrants inpatient admission at this time. Will change to observation, evaluate abdominal pain and potentially give mag citrate, and see if he improves. He could be potentially discharged to home tomorrow if improved and oxygen remains 88% or greater. - Assessment/Plan (1) Acute respiratory failure Problem: Resolved Qualifiers: Respiratory failure complication: hypoxia (2) Abdominal pain Problem: Acute Qualifiers: Abdominal location: unspecified location Qualified Code(s): R10.9 - Unspecified abdominal pain (3) Shortness of breath Problem: Acute (4) Chest pain Problem: Acute Qualifiers: Chest pain type: unspecified Qualified Code(s): R07.9 - Chest pain, unspecified
[2019-03-11] MEDS ORDERED: MAGNESIUM CITRATE 300 ML BTL PO ONE (17:48)
[2019-03-11] MEDS: METOPROLOL TARTRATE 25 MG TABLET PO SCH (21:12)
[2019-03-11] MEDS: SIMVASTATIN 40 MG TABLET PO SCH (21:12)
[2019-03-12] MEDS: ALBUTEROL SULFATE/IPRATROPIUM 3 ML NEBU IH PRN ×2 (05:29→09:43)
[2019-03-12] MEDS: PANTOPRAZOLE SODIUM 20 MG TABLET.DR PO SCH (07:06)
[2019-03-12] MEDS: AZITHROMYCIN 250 MG TABLET PO SCH (08:50)
[2019-03-12] MEDS: METOPROLOL TARTRATE 25 MG TABLET PO SCH ×2 (08:50→20:09)
[2019-03-12] MEDS: predniSONE 20 MG TABLET PO SCH (08:50)
[2019-03-12] MEDS: ASPIRIN 81 MG TAB.CHEW PO SCH (08:51)
--- NOTE | 2019-03-12 12:37 | PN ---
Subjective - Date and Time Seen Date: 03/12/19 Time: 12:37 Subjective Narrative: Patient comfortable this morning. States he has had 3 bowel movements, the first quite large. Since then his abdominal pain/chest pain has resolved. Still has some shortness of breath that he endorses as well as cough. Still requiring oxygen to maintain sats. No acute events overnight. Patient is been afebrile. Objective - Review of Systems Generalized/Overall Review: Denies: Weakness, Chills, Fever EENTM: Reports: No Symptoms Reported Respiratory: Reports: Cough, Shortness of Breath Cardiac: Denies: Chest Pain, Palpitations Abdominal: Denies: Nausea, Vomiting, Abdominal Pain, Constipation Genitourinary Symptoms: Reports: No Symptoms Reported Musculoskeletal Complaints: Reports: No Symptoms Reported Neurological: Reports: No Symptoms Reported Skin: Reports: No Symptoms Reported Endocrine: Reports: No Symptoms Reported - Vitals Vitals: Last Vital Signs Temp 36.0 C 03/12/19 10:00 Pulse 66 03/12/19 10:00 Resp 20 03/12/19 10:00 BP 107/52 03/12/19 10:00 Pulse Ox 92 L 03/12/19 10:52 - Exam Constitutional: Present: Alert, Oriented x3, Cooperative, Elderly ENT Exam: Present: hearing grossly normal, moist mucous membranes. Absent: nasal congestion, nasal drainage, pharyngeal erythema Neck: Present: non-tender, supple Respiratory: Present: wheezing, expiration (prolonged). Absent: normal breath sounds Cardiovascular/Chest: Present: regular rate, rhythm, no murmur Abdomen: Present: soft, nontender, nondistended Skin Exam: Present: normal color, warm/dry Appearance: Present: appropriate appearance, appropriate insight Thoughts: Present: normal thought pattern, normal mood /affect Assessment/Plan Plan Narrative: 79-year-old male with chest pain/abdominal pain, resolved following recent bowel movements. No longer constipated. Main concern now is the patient still having shortness of breath and requiring oxygen to maintain sats. Patient does have history of COPD though and is chronically around 88 to 92% on room air. Will wean oxygen use down to roughly 9% O2 saturation. Not currently on antibiotics as admitting doctor did not feel like he had a lung infection. Clinically aside from the hypoxia he does not have any other symptoms of pneumonia. Currently withholding antibiotics but will reassess in the morning. Lab work upon admission showed 11 normal white count with no shift. Rest of his labs were in acceptable range. Chronic medications restarted. Patient does feel better aside from the shortness of breath. Likely home tomorrow if he improves overnight. Continue heart healthy diet, nurse to call with any questions or concerns. - Problems/Diagnosis (1) Acute respiratory failure Problem: Acute Qualifiers: Respiratory failure complication: hypoxia (2) Pneumonia Problem: Resolved Qualifiers: Pneumonia type: due to unspecified organism Laterality: right Lung location: upper lobe of lung (3) Abdominal pain Problem: Resolved Qualifiers: Abdominal location: unspecified location Qualified Code(s): R10.9 - Unspecified abdominal pain (4) COPD (chronic obstructive pulmonary disease) Problem: Chronic Qualifiers: COPD type: emphysema Emphysema type: unspecified Qualified Code(s): J43.9 - Emphysema, unspecified (5) Shortness of breath Problem: Acute (6) HTN (hypertension) Problem: Chronic Qualifiers: Hypertension type: essential hypertension Qualified Code(s): I10 - Essential (primary) hypertension
[2019-03-12] MEDS: SIMVASTATIN 40 MG TABLET PO SCH (20:09)
[2019-03-13] MEDS: METOPROLOL TARTRATE 25 MG TABLET PO SCH ×2 (08:17→20:01)
[2019-03-13] MEDS: PANTOPRAZOLE SODIUM 20 MG TABLET.DR PO SCH (08:17)
[2019-03-13] MEDS: ASPIRIN 81 MG TAB.CHEW PO SCH (08:17)
[2019-03-13] MEDS: AZITHROMYCIN 250 MG TABLET PO SCH (08:18)
[2019-03-13] MEDS: predniSONE 20 MG TABLET PO SCH (08:18)
[2019-03-13] MEDS: ALBUTEROL SULFATE/IPRATROPIUM 3 ML NEBU IH PRN (10:16)
--- NOTE | 2019-03-13 15:31 | PN ---
Subjective - Date and Time Seen Date: 03/13/19 Time: 15:28 Subjective Narrative: Patient continues to feel well while he is resting in bed. No acute events overnight. Patient gets shortness of breath though with any exercise. Patient requiring oxygen to maintain sats between 88 and 90% via nasal cannula. Otherwise vital signs been stable and has been afebrile. He is starting to feel much better from a cough/chest congestion standpoint. Objective - Review of Systems Generalized/Overall Review: Denies: Weakness, Chills, Fever EENTM: Reports: No Symptoms Reported Respiratory: Reports: Cough, Shortness of Breath Cardiac: Denies: Chest Pain, Palpitations Abdominal: Denies: Nausea, Vomiting Genitourinary Symptoms: Reports: No Symptoms Reported Musculoskeletal Complaints: Reports: No Symptoms Reported Neurological: Reports: No Symptoms Reported Skin: Reports: No Symptoms Reported Endocrine: Reports: No Symptoms Reported - Vitals Vitals: Last Vital Signs Temp 36.4 C 03/13/19 14:51 Pulse 71 03/13/19 14:51 Resp 14 03/13/19 14:51 BP 115/65 03/13/19 14:51 Pulse Ox 90 L 03/13/19 14:51 - Exam Constitutional: Present: Alert, Oriented x3, Elderly Neck: Present: non-tender, supple Respiratory: Present: decreased breath sounds, rhonchi - Bilateral bases. Absent: wheezing Cardiovascular/Chest: Present: regular rate, rhythm, no murmur Abdomen: Present: soft, nontender, nondistended Appearance: Present: appropriate appearance, appropriate insight Eye contact: Present: cooperative, good eye contact Thoughts: Present: normal thought pattern, normal mood /affect Assessment/Plan Plan Narrative: 79-year-old male with chest pain/abdominal pain, resolved following recent bowel movements. No longer constipated. Main concern now is the patient still having shortness of breath and requiring oxygen to maintain sats. Patient does have history of COPD though and is chronically around 88 to 92% on room air. Will wean oxygen use down to roughly 90% O2 saturation. Currently being treated with ceftriaxone and a azithromycin. Clinically aside from the hypoxia he does not have any other symptoms of pneumonia. Lab work upon admission showed 11 normal white count with no shift. Rest of his labs were in acceptable range. Chronic medications restarted. Patient does feel better aside from the shortness of breath. Continue heart healthy diet, nurse to call with any questions or concerns. Patient sats dropped to 87% while walking today on room air. One-point patient felt extremely short of breath. Both patient and his want to have oxygen at home if possible. Will need to discuss this with case management tomorrow - Problems/Diagnosis (1) Acute respiratory failure Problem: Acute Qualifiers: Respiratory failure complication: hypoxia Qualified Code(s): J96.01 - Acute respiratory failure with hypoxia (2) Pneumonia Problem: Resolved Qualifiers: Pneumonia type: due to unspecified organism Laterality: right Lung location: upper lobe of lung Qualified Code(s): J18.9 - Pneumonia, unspecified organism (3) Abdominal pain Problem: Resolved Qualifiers: Abdominal location: unspecified location Qualified Code(s): R10.9 - Unspecified abdominal pain (4) COPD (chronic obstructive pulmonary disease) Problem: Chronic Qualifiers: COPD type: emphysema Emphysema type: unspecified Qualified Code(s): J43.9 - Emphysema, unspecified (5) Shortness of breath Problem: Acute (6) HTN (hypertension) Problem: Chronic Qualifiers: Hypertension type: essential hypertension Qualified Code(s): I10 - Essential (primary) hypertension
[2019-03-13] MEDS: SIMVASTATIN 40 MG TABLET PO SCH (20:02)
[2019-03-14] MEDS: PANTOPRAZOLE SODIUM 20 MG TABLET.DR PO SCH (06:29)
[2019-03-14] MEDS: predniSONE 20 MG TABLET PO SCH (09:57)
[2019-03-14] MEDS: ASPIRIN 81 MG TAB.CHEW PO SCH (09:57)
[2019-03-14] MEDS: AZITHROMYCIN 250 MG TABLET PO SCH (09:57)
[2019-03-14] MEDS: METOPROLOL TARTRATE 25 MG TABLET PO SCH (09:57)
--- NOTE | 2019-03-14 13:18 | DS ---
(1) Acute respiratory failure Problem: Acute Qualifiers: Respiratory failure complication: hypoxia Qualified Code(s): J96.01 - Acute respiratory failure with hypoxia (2) Acute exacerbation of chronic obstructive pulmonary disease (COPD) Problem: Acute (3) Constipation Problem: Acute Date of Discharge:: 03/14/19 Hospital Course: Horace was admitted for acute respiratory failure dropping into the 70% on room air in the ER. He was placed on 2-3lpm of oxygen to keep sats >90%. He has chronic pulmonary fibrosis and oxygen saturation is normally 88-92%. He has used oxygen in the past but recently did not need it. He was having abdominal pain and shortness of breath initially. He was found to be constipated and having a COPD exacerbation. He was treated with Mag citrate, steroids, rocephin, azithromycin, and nebulizer breathing treatments. He gradually improved and was weaned off of oxygen at rest. He continues to have hypoxia with activity. He was unable to be discharged to home yesterday because he dropped to 87% with activity and he had no home oxygen. He was set up with home oxygen today and continues to require oxygen with activity. Today he dropped to 86% with activity. I will continue treatment for COPD exacerbation with completion of azithromycin, steroid taper, and will switch rocephin to cefdinir to complete antibiotic course. He has no hypoxia on room air at rest. With activity he drops to 86% on room air. He requires 2lpm to keep sats >87% with activity. Procedures Performed: none Results and Findings: Lab Pending Results 03/11/19 03:45: WBC 9.0, RBC 4.92, Hgb 13.4 L, Hct 43.2, MCV 87.8, MCH 27.2, MCHC 31.0 L, RDW 14.6 H, Plt Count 237, MPV 9.6, Immature Gran % (Auto) 0.40, Immature Gran # (Auto) 0.04 H, Neutrophils % 75.3 H, Lymphocytes % 12.9 L, Monocytes % 10.7 H, Eosinophils % 0.4, Basophils % 0.3, Nucleated RBC % 0.0, Neutrophils # 6.8 H, Lymphocytes # 1.16 L, Monocytes # 1.0, Eosinophils # 0.0, Absolute Basophils 0.0 03/11/19 03:45: Sodium 145 H, Plasma Sodium 145 H, Potassium 4.0, Chloride 113 H, Carbon Dioxide 22.6 L, Anion Gap 13.4, BUN 18, Creatinine 1.09, Est GFR (Non- Af Amer) 70, BUN/Creatinine Ratio 16.5, Random Glucose 105, Calcium 8.2, Calcium Adj for Albumin 8.9, Total Bilirubin 0.7, AST 12, ALT 11 L, Alkaline Phosphatase 107, Troponin I 0.034, Total Protein 6.2, Albumin 2.7 L 03/11/19 03:45: D-Dimer 1.47 H 03/11/19 05:45: Troponin I 0.023 Discharge Location: Home Disposition: Home self-care Condition: Stable Discharge Activity: Activity as tolerated Discharge Diet: General/regular food Referrals: Maxi Whaley DO [Primary Care Provider] - One Week Prescriptions (Any new or edited meds): Albuterol Sulfate/Ipratropium [Duoneb 2.5-0.5MG/3ML Soln] 3 ml INHALATION Q4H PRN #120 nebu PRN Reason: shortness of breath/wheeze Transmission Status: Pending to [place], [place] Cefdinir [Omnicef] 300 mg PO Q12H #10 cap Transmission Status: Pending to [place] predniSONE [Prednisone] 40 mg PO DAILY #25 tab Transmission Status: Pending to [place], [place] Azithromycin [Zithromax] 250 mg PO DAILY #1 tab Transmission Status: Pending to [place], [place] Complete Home Medications List: Complete Home Medication List: Aspirin [Aspirin Chewable] 81 mg PO DAILY 09/16/12 metoprolol tartrate 25 mg tablet 12.5 mg PO BID #90 tab 06/09/18 simvastatin 40 mg tablet 40 mg PO HS #90 tab 06/09/18 omeprazole 20 mg capsule,delayed release 20 mg PO DAILY 12/13/18 Albuterol Sulfate/Ipratropium [Duoneb 2.5-0.5MG/3ML Soln] 3 ml INHALATION Q4H PRN #120 nebu 03/14/19 Azithromycin [Zithromax] 250 mg PO DAILY #1 tab 03/14/19 Cefdinir [Omnicef] 300 mg PO Q12H #10 cap 03/14/19 predniSONE [Prednisone] 40 mg PO DAILY #25 tab 03/14/19
[2019-03-14 14:45] VITALS: BP 128/64
== END 2019-03-14 15:17 | disposition home or self-care (01) ==
LOC: ER 02:32 → INTOOBSV 07:08 → MS 07:08
PROVIDERS: ADMIT Family Medicine; ATTEND Family Medicine
CPT/HCPCS: 36415; 71020; 71046; 71275; 74019; 74020; 80053; 84484; 85025; 85379; 93005; 94640; 94664; 96365; 96366; 96375; 99285; G0378; Q9967

== ENCOUNTER 2019-06-19 15:59 | Observation (INO) ==
[2019-06-19] MEDS ORDERED: LIDOCAINE HCL 20 ML UDC PO ONE (16:16)
[2019-06-19] MEDS ORDERED: BELLADONNA ALKALOIDS/PHENOBARB ELIXIR PO ONE (16:16)
[2019-06-19] MEDS ORDERED: MAG HYDROX/ALUMINUM HYD/SIMETH 30 ML UDC PO ONE (16:16)
[2019-06-19 16:25] LABS: Hemoglobin 14.7 gm/dL (13.5-18.0); Mean Cell Volume 86.6 fl (78-100); Mean Corpuscular Hemoglobin 26.5 pg (27-31); Mean Corpuscular Hgb Conc 30.6 g/dl (32-36); Mean Platelet Volume 9.6 fl (8-11.3); Neutrophil # 6.8 K/mm3 (1.3-6.0); Platelet Count 271 K/mm3 (150-450); Red Blood Count 5.54 M/mm3 (4.7-6.0); Red Cell Distribution Width 16.6 % (11.5-14.0); White Blood Count 11.3 K/mm3 (4.0-10.5)
[2019-06-19 16:42] LABS: Albumin * 3.4 gm/dl (3.4-5.0); Anion Gap 17.4 mmol/L (6.8-13.8); BUN/Creatinine Ratio 14.9 (9.0-21.6); Bilirubin, Total 0.5 mg/dL (0.0-1.1); Ca. Corrected For Albumin 9.1 mg/dL (8.4-10.2); Calcium * 8.9 mg/dL (7.9-10.9); Carbon Dioxide 22.7 mmol/L (24-32.6); Potassium 4.1 mmol/L (3.4-4.6); Total Protein 7.5 gm/dL (6.2-8.2); Troponin I 0.031 ng/mL (0.00-0.10)
[2019-06-19] MEDS ORDERED: DIATRIZOATE MEGLUMINE, SODIUM 30 ML BTL PO ONE (17:57)
[2019-06-19] MEDS ORDERED: MORPHINE SULFATE 2 MG/ML DISP.SYRIN IV ONE ×2 (19:05→21:34)
[2019-06-19] MEDS ORDERED: ONDANSETRON HCL/PF 2 MG/ML VIAL ONE (19:14)
[2019-06-19] MEDS ORDERED: ONDANSETRON HCL/PF 2 MG/ML VIAL IV ONE (19:20)
--- NOTE | 2019-06-19 19:39 | ERNOTE ---
Chest Pain/Cardiac HPI Date of Service: 06/19/19 Chief Complaint: Chest Pain Time Seen by Provider: 06/19/19 16:17 Source: patient, RN notes reviewed, past records Exam Limitations: clinical condition Immunizations: IMMUNIZATION HX Immunizations Up to Date No History of Influenza Vaccine No Hx Pneumococcal Vaccination No Allergies/Adverse Reactions: Allergies carbamazepine [From Tegretol] Allergy (Mild, Verified 06/19/19 16:07) Hives Penicillins Allergy (Mild, Verified 06/19/19 16:07) Hives Home Medications: HOME MEDICATIONS Aspirin [Aspirin Chewable] 81 mg PO DAILY 09/16/12 [Last Taken 05/30/18] metoprolol tartrate 25 mg tablet 12.5 mg PO BID #90 tab 06/09/18 [Last Taken Unknown] simvastatin 40 mg tablet 40 mg PO HS #90 tab 06/09/18 [Last Taken Unknown] omeprazole 20 mg capsule,delayed release 20 mg PO DAILY 12/13/18 [Last Taken Unknown] Albuterol Sulfate/Ipratropium [Duoneb 2.5-0.5MG/3ML Soln] 3 ml INHALATION Q4H PRN #120 nebu 03/14/19 [Last Taken Unknown] Azithromycin [Zithromax] 250 mg PO DAILY #1 tab 03/14/19 [Last Taken Unknown] predniSONE [Prednisone] 40 mg PO DAILY #25 tab 03/14/19 [Last Taken Unknown] Narrative: Horace is a 79-year-old male who presents to the emergency department for chest pain that began after he ate breakfast this morning. This is gradually gotten worse throughout the day. He has not taken anything for pain. He cannot identify anything that makes the pain better or worse. He is somewhat of a poor historian and is crying out in pain periodically. When asked where his pain is located, he gestures to his epigastric region. He denies any nausea, vomiting or bloating. He reports that his bowels have been moving normally. Review of Systems - Narrative Narrative: Unable to obtain complete ROS due to patient condition Medical History (Last Reviewed 06/19/19 @ 21:53 by Chloé Melton NP) COPD (chronic obstructive pulmonary disease) (Chronic) GERD (gastroesophageal reflux disease) (Chronic) Onset Date: Unknown Coronary artery disease (Chronic) Onset Date: Unknown Angina pectoris, unspecified (Inactive) Onset Date: Unknown Hyperlipidemia (Chronic) Onset Date: Unknown HTN (hypertension) (Chronic) Onset Date: Unknown CHF (congestive heart failure) (Chronic) Onset Date: 03/13/16 COPD (chronic obstructive pulmonary disease) Onset Date: Unknown Acute respiratory failure with hypoxia Onset Date: Unknown Brain aneurysm Onset Date: Unknown DVT (deep venous thrombosis) Onset Date: Unknown Depression Onset Date: Unknown History of stress test Onset Date: 07/26/02 History of stress test Onset Date: 02/15/99 Kidney calculi Onset Date: Unknown Subdural hemorrhage Onset Date: ~2004 2000, 2004 3 brain aneurysms Negative Colorectal Cancer Screening using Cologuard Onset Date: 01/20/17 Surgical History: Surgical History (Last Reviewed 06/19/19 @ 21:53 by Chloé Melton NP) H/O lithotripsy (Resolved) Onset Date: Unknown History of cholecystectomy (Resolved) Onset Date: ~2006 H/O brain surgery (Resolved) Onset Date: ~2004 x3; brain aneurysm History of angioplasty Onset Date: ~1997 History of colonoscopy Onset Date: ~2000 History of coronary artery stent placement Onset Date: ~12/2008 Right. History of embolic filter insertion Onset Date: Unknown Family History: Family History (Last Reviewed 06/19/19 @ 21:53 by Chloé Melton NP) Mother Heart disease Brother Heart disease Sister Heart disease Social History: (Last Reviewed 06/19/19 @ 21:53 by Chloé Melton NP) Social History: adopted: No senior living: No Marital status: household members: spouse number of children: 2 current occupational status: retired Service: Yes branch: [employer] status: discharged assignments: [employer] Tobacco: Smoking Status: Former smoker Alcohol: alcohol intake: current Alcohol type: beer alcohol intake frequency: holiday/special occasion Dietary Habits: caffeine: Yes Type: coffee Physical Exam - Physical Exam General Appearance: Present: wd/wn, alert, moderate distress Head Exam: Present: normal inspection Eye Exam: Normal inspection: bilateral Neck: Present: normal inspection, nontender, supple Respiratory: Present: no respiratory distress, normal breath sounds, no accessory muscle use, chest nontender, lungs clear Cardiovascular/Chest: Present: regular rate, rhythm, normal peripheral pulses Gastrointestinal/Abdominal: Present: soft - but bloated in appearance, tenderness - Epigastric, moderate, abnormal bowel sounds - hypoactive Male Genitals Exam: Present: hernia mass - Large bilateral inguinal hernias, reducible, moderate tenderness with manipulation Extremity Exam: Present: normal inspection, non-tender Neurological Exam: Present: alert, oriented, no motor/sensory deficits Skin Exam: Present: normal color, warm/dry Progress - Results and Orders Patient's Lab Results:: I have reviewed the patient's lab results. - Vital Signs Patient's Vital Signs:: I have reviewed the patient's vital signs. Vital Signs: Vital Signs 06/19/19 15:59 06/19/19 16:12 06/19/19 16:35 Temperature 36.1 C Pulse Rate 86 82 74 Respiratory Rate 25 H 13 Blood Pressure 194/86 H 150/78 H O2 Sat by Pulse Oximetry 94 91 L 06/19/19 17:05 Temperature Pulse Rate Respiratory Rate Blood Pressure O2 Sat by Pulse Oximetry 83 L - EKG EKG #1 EKG: NSR EKG read: Reviewed by me - X-Ray X-Ray #1 X-Ray: abdomen Interpretation: Interp. by me X-ray Comments: Dilated loops of bowel concerning for obstruction X-Ray #2 X-Ray: chest Interpretation: Reviewed by me X-ray Comments: Technique: Upright frontal and lateral views of the chest were obtained. Findings: The cardiac silhouette is mildly enlarged in size. The mediastinum and hilum are with in normal limits. The lung evans demonstrate mild hyperinflation scattered fibrotic change. I do not see evidence for an infiltrate, effusion or pulmonary edema. Apparent venous filter within the distal superior vena cava IMPRESSION: 1. MILDLY ENLARGED HEART. 2. HYPERINFLATION SCATTERED FIBROTIC CHANGE. 3. NO ACUTE CARDIOPULMONARY PROCESS. 4. VENOUS FILTER WITHIN THE DISTAL SUPERIOR VENA CAVA Electronically signed by Sudheer Magallon M.D.. - CT/Ultrasound CT/Ultrasound Narrative: CT abdomen/pelvis shows large bilateral inguinal hernias with fat stranding on the right, likely the cause of a partial small bowel obstruction - per night rad prelim report - Progress/Reassessment Chief Complaint: Chest Pain Progress:: Improved Plan - Plan Plan: The patient's pain initially improved with a GI cocktail. His EKG showed no significant changes from his prior and his troponin was within normal limits. His abdominal x-ray showed dilated loops of bowel, thus a CT scan was done. The patient has a partial small bowel obstruction and bilateral inguinal hernias. Discussed with Dr. Hanna. She agreed that he could be admitted to the hospital for medical management of this. I then contacted Dr. Baldwin who agreed to admit the patient. He has been given morphine 2 mg IV push twice and has also had IV Zofran. He currently has a liter of NS running. Departure Clinical Impression: Partial small bowel obstruction Bilateral inguinal hernia Qualifiers: Obstruction and gangrene presence: without obstruction or gangrene Recurrence: not specified as recurrent Qualified Code(s): K40.20 - Bilateral inguinal hernia, without obstruction or gangrene, not specified as recurrent - Departure Disposition: Still a patient Condition: Stable
[2019-06-19] MEDS ORDERED: NORMAL SALINE 1,000 ML IV ONE (20:43)
[2019-06-19] MEDS ORDERED: NORMAL SALINE 500 ML IV PRN (22:56)
[2019-06-19] MEDS ORDERED: MORPHINE SULFATE 2 MG/ML DISP.SYRIN IV PRN (22:59)
[2019-06-19] MEDS ORDERED: ONDANSETRON HCL/PF 2 MG/ML VIAL IV PRN (23:11)
[2019-06-19] MEDS ORDERED: ACETAMINOPHEN 500 MG TABLET PO PRN (23:12)
[2019-06-19] MEDS: METOPROLOL TARTRATE 25 MG TABLET PO SCH (23:38)
[2019-06-20] MEDS: METOPROLOL TARTRATE 25 MG TABLET PO SCH (08:48)
--- NOTE | 2019-06-20 09:32 | CONS ---
[facility] - General Date of Service: 06/20/19 Narrative: Bilateral inguinal hernias, small bowel obstruction Source: patient Exam Limitations: no limitations - History of Present Illness Timing/Duration: 24 hours Severity: moderate Associated Symptoms: denies symptoms Allergies/Adverse Reactions: Allergies influenza virus vaccine tvs 5231-1123(65 years up) [From Fluad (65 yr up)(PF)] Allergy (Intermediate, Verified 06/19/19 22:17) Hives vaccine adjuvant emulsion MF59C.1 [From Fluad (65 yr up)(PF)] Allergy (Intermediate, Verified 06/19/19 22:17) Hives carbamazepine [From Tegretol] Allergy (Mild, Verified 06/19/19 16:07) Hives Penicillins Allergy (Mild, Verified 06/19/19 16:07) Hives Home Medications: Home Medications Medication Instructions Recorded Last Taken Aspirin [Aspirin Chewable] 81 mg PO DAILY 09/16/12 05/30/18 metoprolol tartrate 25 mg tablet 12.5 mg PO BID #90 tab 06/09/18 Unknown simvastatin 40 mg tablet 40 mg PO HS #90 tab 06/09/18 Unknown omeprazole 20 mg capsule,delayed 20 mg PO DAILY 12/13/18 Unknown release Albuterol Sulfate/Ipratropium 3 ml INHALATION Q4H PRN #120 nebu 03/14/19 Unknown [Duoneb 2.5-0.5MG/3ML Soln] Procedures Closed [endoscopic] biopsy of large intestine (10/13/02) Esophagogastroduodenoscopy [EGD] with closed biopsy (07/09/99) Extracorporeal shockwave lithotripsy [ESWL] of the kidney, ureter and/or bladder (07/08/04) Laparoscopic cholecystectomy (09/20/06) Other cystoscopy (09/16/12) Other transurethral excision or destruction of lesion or tissue of bladder (09/20/06) Other transurethral prostatectomy (07/03/03) Removal of ureterostomy tube and ureteral catheter (09/22/12) Retrograde pyelogram (07/07/04) Transurethral clearance of bladder (09/20/06) Transurethral removal of obstruction from ureter and renal pelvis (09/22/12) Ureteral catheterization (09/16/12) Ureteroscopy (09/22/12) Medications - Medications Current Medications: Current Medications Acetaminophen (Tylenol) 500 mg PO Q4H PRN PRN Reason: Mild pain (pain scale 1-3) Stop: 07/19/19 23:13 Last Admin: 06/20/19 04:15 Dose: 500 mg Documented by: Sodium Chloride (Sodium Chloride 0.9%) 500 mls @ 100 mls/hr IV .Q5H PRN PRN Reason: HYDRATION Stop: 07/19/19 22:57 Last Infusion: 06/20/19 04:27 Dose: Infused Documented by: Metoprolol Tartrate (Lopressor) 12.5 mg PO BID PRASAD Stop: 07/19/19 23:16 Last Admin: 06/20/19 08:48 Dose: 12.5 mg Documented by: Morphine Sulfate (Morphine Sulfate) 2 mg IV Q4H PRN PRN Reason: pain Stop: 07/19/19 23:00 Last Admin: 06/20/19 03:33 Dose: 2 mg Documented by: Ondansetron HCl (Zofran) 4 mg IV Q4H PRN PRN Reason: Nausea Stop: 07/19/19 23:12 Last Admin: 06/20/19 03:30 Dose: 4 mg Documented by: Review of Systems - Review of Systems Generalized/Overall Review: Present: Malaise EENTM: Present: No Symptoms Reported Respiratory: Present: No Symptoms Reported Cardiac: Present: No Symptoms Reported Abdominal: Present: Abdominal Pain Genitourinary: Present: No Symptoms Reported Musculoskeletal: Present: No Symptoms Reported Neurological: Present: No Symptoms Reported Skin: Present: No Symptoms Reported Endocrine: Present: No Symptoms Reported Physical Examination - Exam Vital Signs: Vital Signs - Last Taken Temp 36.5 C 06/20/19 06:53 Pulse 85 06/20/19 08:48 Resp 24 H 06/20/19 06:53 BP 143/74 06/20/19 08:48 Pulse Ox 90 L 06/20/19 06:53 O2 Oxygen Delivery Method Nasal Cannula Constitutional: Present: Oriented x3, Cooperative ENT Exam: Present: normal ENT inspection, hearing grossly normal Eye Exam: bilateral eye: normal inspection Neck: Present: full range of motion Breasts: Present: Exam deferred Respiratory: Present: lungs clear, normal breath sounds, no respiratory distress Cardiovascular/Chest: Present: normal peripheral pulses, regular rate, rhythm Abdomen: Present: Normal bowel sounds, soft, nontender, hernia - Right side reducible. Absent: no rebound tenderness, tender, guarding, rigidity /Rectal: Present: Exam deferred Extremity: Present: normal range of motion, non-tender Skin Exam: Present: normal color Neurologic: Present: order make up clerk II-XII nml as tested Appearance: Present: appropriate appearance Eye contact: Present: cooperative, good eye contact Thoughts: Present: normal thought pattern - Results and Findings: Lab/Microbiology results last 24 hrs: Abnormal/Pending Laboratory Last 24 HRS 06/19/19 06/19/19 16:19 16:19 WBC 11.3 H MCH 26.5 L MCHC 30.6 L RDW 16.6 H Immature Gran # (Auto) 0.05 H Neutrophils # 6.8 H Plasma Sodium 143 H Carbon Dioxide 22.7 L Anion Gap 17.4 H Creatinine 1.48 H Est GFR (Non-Af Amer) 49 L D Random Glucose 158 H ALT 14 L - Assessments/Findings (1) Bilateral inguinal hernia Problem: Acute Qualifiers: Obstruction and gangrene presence: without obstruction or gangrene Recurrence: not specified as recurrent Qualified Code(s): K40.20 - Bilateral inguinal hernia, without obstruction or gangrene, not specified as recurrent (2) Partial small bowel obstruction Problem: Acute Plan - Plan Plan: After COVID is over he can have the right-sided hernia repaired. Left-sided hernia is rather large and contain sigmoid colon. This is unlikely to obstruct and has been asymptomatic. I would recommend leaving the left side alone. Discussed with Dr. Whaley.
--- NOTE | 2019-06-20 16:43 | HPDIS ---
Chief Complaint - Chief Complaint Date of Service: 06/20/19 Time of Service: 08:15 Chief Complaint: Abdominal pain History of Present Illness: Horace is a 79 yo male who has been having worsening abdominal pain for the past week. He presented to the [facility] ER last night due to worsening pain. He had imaging that showed bilateral inguinal hernias with small bowel obstruction related to the hernias. He denies any change in medications or diet. He had been doing well. Medical History (Last Reviewed 06/19/19 @ 22:15 by Mony Larson RN) COPD (chronic obstructive pulmonary disease) (Chronic) GERD (gastroesophageal reflux disease) (Chronic) Onset Date: Unknown Coronary artery disease (Chronic) Onset Date: Unknown Angina pectoris, unspecified (Inactive) Onset Date: Unknown Hyperlipidemia (Chronic) Onset Date: Unknown HTN (hypertension) (Chronic) Onset Date: Unknown CHF (congestive heart failure) (Chronic) Onset Date: 03/13/16 COPD (chronic obstructive pulmonary disease) Onset Date: Unknown Acute respiratory failure with hypoxia Onset Date: Unknown Brain aneurysm Onset Date: Unknown DVT (deep venous thrombosis) Onset Date: Unknown Depression Onset Date: Unknown History of stress test Onset Date: 07/26/02 History of stress test Onset Date: 02/15/99 Kidney calculi Onset Date: Unknown Subdural hemorrhage Onset Date: ~2004 2000, 2004 3 brain aneurysms Negative Colorectal Cancer Screening using Cologuard Onset Date: 01/20/17 Surgical History: Surgical History (Last Reviewed 06/19/19 @ 22:15 by Mony Larson RN) H/O lithotripsy (Resolved) Onset Date: Unknown History of cholecystectomy (Resolved) Onset Date: ~2006 H/O brain surgery (Resolved) Onset Date: ~2004 x3; brain aneurysm History of angioplasty Onset Date: ~1997 History of colonoscopy Onset Date: ~2000 History of coronary artery stent placement Onset Date: ~12/2008 Right. History of embolic filter insertion Onset Date: Unknown Family History: Family History (Last Reviewed 06/19/19 @ 22:15 by Mony Larson RN) Mother Heart disease Brother Heart disease Sister Heart disease Social History: (Last Reviewed 06/19/19 @ 22:16 by Mony Larson RN) Social History: adopted: No snf: No Marital status: household members: spouse number of children: 2 current occupational status: retired Service: Yes branch: [employer] status: discharged assignments: [employer] Tobacco: Smoking Status: Former smoker Alcohol: alcohol intake: current Alcohol type: beer alcohol intake frequency: holiday/special occasion Dietary Habits: caffeine: Yes Type: coffee Review Of Systems (GEN) - Review of Systems Generalized/Overall Review: Absent: Weakness, Chills, Fever EENTM: Absent: Eye Pain, Blurred Vision Respiratory: Absent: Cough, Shortness of Breath Cardiac: Absent: Chest Pain, Edema Abdominal: Present: Nausea, Abdominal Pain, Constipation Genitourinary: Absent: No Symptoms Reported, Burning Musculoskeletal: Absent: Joint Pain, Back Pain Neurological: Absent: Headache, Anxiety Skin: Absent: Dryness, Lesions Endocrine: Absent: Intolerance to Cold, Intolerance to Heat Immunizations: IMMUNIZATION HX Immunizations Up to Date No History of Influenza Vaccine No Hx Pneumococcal Vaccination No Allergies/Adverse Reactions: Allergies Allergy/AdvReac Type Severity Reaction Status Date / Time influenza virus vaccine tvs Allergy Intermediate Hives Verified 06/19/19 22:17 5430-5310(65 years up) [From Fluad 6932-7385 (65 yr up)(PF)] vaccine adjuvant emulsion Allergy Intermediate Hives Verified 06/19/19 22:17 MF59C.1 [From Fluad (65 yr up)(PF)] carbamazepine [From Tegretol] Allergy Mild Hives Verified 06/19/19 16:07 Penicillins Allergy Mild Hives Verified 06/19/19 16:07 Home Medications: HOME MEDICATIONS Aspirin [Aspirin Chewable] 81 mg PO DAILY 09/16/12 [Last Taken 05/30/18] metoprolol tartrate 25 mg tablet 12.5 mg PO BID #90 tab 06/09/18 [Last Taken Unk nown] simvastatin 40 mg tablet 40 mg PO HS #90 tab 06/09/18 [Last Taken Unknown] omeprazole 20 mg capsule,delayed release 20 mg PO DAILY 12/13/18 [Last Taken Unknown] Albuterol Sulfate/Ipratropium [Duoneb 2.5-0.5MG/3ML Soln] 3 ml INHALATION Q4H PRN #120 nebu 03/14/19 [Last Taken Unknown] Exam - Exam Vital Signs: Vital Signs - Last Taken Temp 36.5 C 06/20/19 14:44 Pulse 73 06/20/19 14:44 Resp 20 06/20/19 14:44 BP 129/66 06/20/19 14:44 Pulse Ox 92 L 06/20/19 14:44 Constitutional: Present: Alert, Oriented x3, Cooperative ENT Exam: Present: hearing grossly normal Eye Exam: bilateral eye: normal inspection Respiratory: Present: lungs clear, normal breath sounds, decreased breath sounds Cardiovascular/Chest: Present: regular rate, rhythm, no murmur Abdomen: Present: Normal bowel sounds, soft, tender - lower abdominal, hernia - palpable mass in bilateral inguinal area, soft, tender to palpation Skin Exam: Present: normal color, warm/dry, no cyanosis Neurologic: Present: alert, normal mood/affect, oriented x 3 Appearance: Present: appropriate appearance, appropriate insight Eye contact: Present: cooperative, good eye contact, normal speech Diagnostic Studies: Abnormal Lab Results 06/19/19 06/19/19 Range/Units 16:19 16:19 WBC 11.3 H (4.0-10.5) K/mm3 MCH 26.5 L (27-31) pg MCHC 30.6 L (32-36) g/dl RDW 16.6 H (11.5-14.0) % Immature Gran # (Auto) 0.05 H (0.000-0.0310) K/mm3 Neutrophils # 6.8 H (1.3-6.0) K/mm3 Plasma Sodium 143 H (130-142) mmol/L Carbon Dioxide 22.7 L (24-32.6) mmol/L Anion Gap 17.4 H (6.8-13.8) mmol/L Creatinine 1.48 H (0.4-1.4) mg/dL Est GFR (Non-Af Amer) 49 L D (60-130) mL/min Random Glucose 158 H (70-110) mg/dL ALT 14 L (19-67) U/L Laboratory Results WBC 11.3 K/mm3 (4.0-10.5) H 06/19/19 16:19 RBC 5.54 M/mm3 (4.7-6.0) 06/19/19 16:19 Hgb 14.7 gm/dL (13.5-18.0) 06/19/19 16:19 Hct 48.0 % (42.0-52.0) 06/19/19 16:19 MCV 86.6 fl (78-100) 06/19/19 16:19 MCH 26.5 pg (27-31) L 06/19/19 16:19 MCHC 30.6 g/dl (32-36) L 06/19/19 16:19 RDW 16.6 % (11.5-14.0) H 06/19/19 16:19 Plt Count 271 K/mm3 (150-450) 06/19/19 16:19 MPV 9.6 fl (8-11.3) 06/19/19 16:19 Immature Gran % (Auto) 0.40 % (0.001-0.429) 06/19/19 16:19 Immature Gran # (Auto) 0.05 K/mm3 (0.000-0.0310) H 06/19/19 16:19 Neutrophils % 60.0 % (42-75.0) 06/19/19 16:19 Lymphocytes % 29.5 % (20-51) 06/19/19 16:19 Monocytes % 8.4 % (0.0-9) 06/19/19 16:19 Eosinophils % 1.1 % (0.0-3.0) 06/19/19 16:19 Basophils % 0.6 % (0.0-1.0) 06/19/19 16:19 Nucleated RBC % 0.0 k/mm3 (0-1) 06/19/19 16:19 Neutrophils # 6.8 K/mm3 (1.3-6.0) H 06/19/19 16:19 Lymphocytes # 3.33 k/mm3 (1.5-3.5) 06/19/19 16:19 Monocytes # 1.0 k/mm3 (0.0-1.0) 06/19/19 16:19 Eosinophils # 0.1 k/mm3 (0.0-0.7) 06/19/19 16:19 Absolute Basophils 0.1 k/mm3 (0.0-0.1) 06/19/19 16:19 Sodium 142 mmol/L (132-142) 06/19/19 16:19 Plasma Sodium 143 mmol/L (130-142) H 06/19/19 16:19 Potassium 4.1 mmol/L (3.4-4.6) 06/19/19 16:19 Chloride 106 mmol/L (97-106) 06/19/19 16:19 Carbon Dioxide 22.7 mmol/L (24-32.6) L 06/19/19 16:19 Anion Gap 17.4 mmol/L (6.8-13.8) H 06/19/19 16:19 BUN 22 mg/dL (6-23) 06/19/19 16:19 Creatinine 1.48 mg/dL (0.4-1.4) H 06/19/19 16:19 Est GFR (Non-Af Amer) 49 mL/min (60-130) L D 06/19/19 16:19 BUN/Creatinine Ratio 14.9 (9.0-21.6) 06/19/19 16:19 Random Glucose 158 mg/dL (70-110) H 06/19/19 16:19 Calcium 8.9 mg/dL (7.9-10.9) 06/19/19 16:19 Calcium Adj for Albumin 9.1 mg/dL (8.4-10.2) 06/19/19 16:19 Total Bilirubin 0.5 mg/dL (0.0-1.1) 06/19/19 16:19 AST 17 U/L (0-48) 06/19/19 16:19 ALT 14 U/L (19-67) L 06/19/19 16:19 Alkaline Phosphatase 142 U/L (50-170) 06/19/19 16:19 Troponin I 0.031 ng/mL (0.00-0.10) 06/19/19 16:19 Total Protein 7.5 gm/dL (6.2-8.2) 06/19/19 16:19 Albumin 3.4 gm/dl (3.4-5.0) 06/19/19 16:19 Assessment/Plan - Narrative Narrative: Horace is a 79 yo male with bilateral inguinal hernias and bowel obstruction. Will consult general surgery. Will continue NPO. - Assessment/Plan (1) Partial small bowel obstruction Problem: Acute (2) Bilateral inguinal hernia Problem: Acute Qualifiers: Obstruction and gangrene presence: without obstruction or gangrene Recurrence: not specified as recurrent Qualified Code(s): K40.20 - Bilateral inguinal hernia, without obstruction or gangrene, not specified as recurrent (1) Partial small bowel obstruction Problem: Acute (2) Bilateral inguinal hernia Problem: Acute Qualifiers: Obstruction and gangrene presence: without obstruction or gangrene Recurrence: not specified as recurrent Qualified Code(s): K40.20 - Bilateral inguinal hernia, without obstruction or gangrene, not specified as recurrent Date of Discharge:: 06/20/19 Hospital Course: Horace was admitted with bowel obstruction secondary to bilateral inguinal hernias. General surgery was consulted and reduced his hernia. He began having bowel movements and abdominal pain resolved. He is feeling well and requests being discharged to home. Procedures Performed: none Results and Findings: Lab Pending Results 06/19/19 16:19: WBC 11.3 H, RBC 5.54, Hgb 14.7, Hct 48.0, MCV 86.6, MCH 26.5 L, MCHC 30.6 L, RDW 16.6 H, Plt Count 271, MPV 9.6, Immature Gran % (Auto) 0.40, Immature Gran # (Auto) 0.05 H, Neutrophils % 60.0, Lymphocytes % 29.5, Monocytes % 8.4, Eosinophils % 1.1, Basophils % 0.6, Nucleated RBC % 0.0, Neutrophils # 6.8 H, Lymphocytes # 3.33, Monocytes # 1.0, Eosinophils # 0.1, Absolute Basophils 0.1 06/19/19 16:19: Sodium 142, Plasma Sodium 143 H, Potassium 4.1, Chloride 106, Carbon Dioxide 22.7 L, Anion Gap 17.4 H, BUN 22, Creatinine 1.48 H, Est GFR (Non-Af Amer) 49 L D, BUN/Creatinine Ratio 14.9, Random Glucose 158 H, Calcium 8.9, Calcium Adj for Albumin 9.1, Total Bilirubin 0.5, AST 17, ALT 14 L, Alkaline Phosphatase 142, Troponin I 0.031, Total Protein 7.5, Albumin 3.4 Discharge Location: Home Disposition: Home self-care Condition: Good Discharge Activity: Activity as tolerated Discharge Diet: General/regular food Referrals: Maxi Whaley DO [Primary Care Provider] - One Week Problem Oriented Discharge Instructions to Patient/Family: Bowel Obstruction, [id number], Inguinal Hernia, Adult, [id number] Complete Home Medications List: Complete Home Medication List: Aspirin [Aspirin Chewable] 81 mg PO DAILY 09/16/12 metoprolol tartrate 25 mg tablet 12.5 mg PO BID #90 tab 06/09/18 simvastatin 40 mg tablet 40 mg PO HS #90 tab 06/09/18 omeprazole 20 mg capsule,delayed release 20 mg PO DAILY 12/13/18 Albuterol Sulfate/Ipratropium [Duoneb 2.5-0.5MG/3ML Soln] 3 ml INHALATION Q4H PRN #120 nebu 03/14/19 Forms: Patient Portal Registration
[2019-06-20 17:34] VITALS: BP 124/65
== END 2019-06-20 17:20 | disposition home or self-care (01) ==
LOC: MS 15:59 → ER 15:59 → MS 21:50
PROVIDERS: ADMIT Family Medicine; ATTEND Family Medicine
DX: K56.690 Other partial intestinal obstruction; I10 Essential (primary) hypertension; K40.00 Bilateral inguinal hernia, with obstruction, without gangrene, not specified as recurrent; Z87.891 Personal history of nicotine dependence; J44.9 Chronic obstructive pulmonary disease, unspecified
CPT/HCPCS: 36415; 71020; 71046; 74019; 74020; 74177; 80053; 84484; 85025; 93005; 96374; 96375; 96376; 99284; 99285; G0378; J2405; Q9963; Q9967

== ENCOUNTER 2019-06-21 14:57 | Inpatient (IN) ==
[2019-06-21 15:28] LABS: Hemoglobin 14.2 gm/dL (13.5-18.0); Mean Cell Volume 86.5 fl (78-100); Mean Corpuscular Hemoglobin 26.7 pg (27-31); Mean Corpuscular Hgb Conc 30.9 g/dl (32-36); Mean Platelet Volume 9.5 fl (8-11.3); Neutrophil # 6.8 K/mm3 (1.3-6.0); Platelet Count 235 K/mm3 (150-450); Red Blood Count 5.32 M/mm3 (4.7-6.0); Red Cell Distribution Width 16.7 % (11.5-14.0); White Blood Count 10.1 K/mm3 (4.0-10.5)
[2019-06-21 15:43] LABS: Albumin * 3.2 gm/dl (3.4-5.0); Anion Gap 15.3 mmol/L (6.8-13.8); BUN/Creatinine Ratio 14.8 (9.0-21.6); Bilirubin, Total 0.7 mg/dL (0.0-1.1); Calcium * 8.7 mg/dL (7.9-10.9); Carbon Dioxide 24.7 mmol/L (24-32.6); Total Protein 6.9 gm/dL (6.2-8.2)
--- NOTE | 2019-06-21 15:43 | ERNOTE ---
Abdominal HPI - Narrative Date of Service: 06/21/19 - General Chief Complaint: Abdominal Pain Time Seen by Provider: 06/21/19 15:42 Source: patient, RN notes reviewed, past records Exam Limitations: no limitations - Immun/Allergies/Home Medications Immunizatons: IMMUNIZATION HX Immunizations Up to Date No History of Influenza Vaccine No Hx Pneumococcal Vaccination No Allergies/Adverse Reactions: Allergies influenza virus vaccine tvs 8709-1720(65 years up) [From Fluad 1719-1339 (65 yr up)(PF)] Allergy (Intermediate, Verified 06/21/19 15:07) Hives vaccine adjuvant emulsion MF59C.1 [From Fluad (65 yr up)(PF)] Allergy (Intermediate, Verified 06/21/19 15:07) Hives carbamazepine [From Tegretol] Allergy (Mild, Verified 06/21/19 15:07) Hives Penicillins Allergy (Mild, Verified 06/21/19 15:07) Hives Home Medications: HOME MEDICATIONS Aspirin [Aspirin Chewable] 81 mg PO DAILY 09/16/12 [Last Taken 05/30/18] metoprolol tartrate 25 mg tablet 12.5 mg PO BID #90 tab 06/09/18 [Last Taken Unknown] simvastatin 40 mg tablet 40 mg PO HS #90 tab 06/09/18 [Last Taken Unknown] omeprazole 20 mg capsule,delayed release 20 mg PO DAILY 12/13/18 [Last Taken Unknown] Albuterol Sulfate/Ipratropium [Duoneb 2.5-0.5MG/3ML Soln] 3 ml INHALATION Q4H PRN #120 nebu 03/14/19 [Last Taken Unknown] - History of Present Illness Narrative: Horace is a 79-year-old male who presents to the emergency department with abdominal pain. I saw the patient the day before yesterday and he was admitted at that time with a partial small bowel obstruction and bilateral inguinal hernias. He was seen by general surgery and his hernia was reduced. He had passed a large amount of stool while he was hospitalized and was feeling better, so he was discharged home yesterday. He began having pain again this morning. He reports having nausea but is not vomiting. His pain is in the right lower quadrant. He reports feeling bloated. He has not taken anything for pain today. Date (Duration): 06/21/19 Timing: constant, getting worse Quality: severe Activities at Onset: none Review of Systems - Review of Systems Constitutional: Absent: fever, chills EYE: Present: no symptoms reported ENT: Present: no symptoms reported Respiratory: Absent: shortness of breath, cough Cardiology: Absent: chest pain, syncope Gastrointestinal/Abdominal: Present: nausea, abdominal pain, eating less, drinking less. Absent: vomiting, diarrhea Genitourinary: Absent: dysuria, decreased urinary output Musculoskeletal: Absent: muscle pain, joint pain Skin: Absent: rash, lesions Neurological: Absent: headache, dizziness/light-headedness Endocrine: Present: no symptoms reported Hematologic/Lymphatic: Absent: easy bruising, easy bleeding Psych: Present: no symptoms reported Medical History (Last Reviewed 06/21/19 @ 17:57 by Chloé Melton NP) COPD (chronic obstructive pulmonary disease) (Chronic) GERD (gastroesophageal reflux disease) (Chronic) Onset Date: Unknown Coronary artery disease (Chronic) Onset Date: Unknown Angina pectoris, unspecified (Inactive) Onset Date: Unknown Hyperlipidemia (Chronic) Onset Date: Unknown HTN (hypertension) (Chronic) Onset Date: Unknown CHF (congestive heart failure) (Chronic) Onset Date: 03/13/16 COPD (chronic obstructive pulmonary disease) Onset Date: Unknown Acute respiratory failure with hypoxia Onset Date: Unknown Brain aneurysm Onset Date: Unknown DVT (deep venous thrombosis) Onset Date: Unknown Depression Onset Date: Unknown History of stress test Onset Date: 07/26/02 History of stress test Onset Date: 02/15/99 Kidney calculi Onset Date: Unknown Subdural hemorrhage Onset Date: ~2004 2000, 2004 3 brain aneurysms Negative Colorectal Cancer Screening using Cologuard Onset Date: 01/20/17 Surgical History: Surgical History (Last Reviewed 06/21/19 @ 17:57 by Chloé Melton NP) H/O lithotripsy (Resolved) Onset Date: Unknown History of cholecystectomy (Resolved) Onset Date: ~2006 H/O brain surgery (Resolved) Onset Date: ~2004 x3; brain aneurysm History of angioplasty Onset Date: ~1997 History of colonoscopy Onset Date: ~2000 History of coronary artery stent placement Onset Date: ~12/2008 Right. History of embolic filter insertion Onset Date: Unknown Family History: Family History (Last Reviewed 06/21/19 @ 17:57 by Chloé Melton NP) Mother Heart disease Brother Heart disease Sister Heart disease Social History: (Last Reviewed 06/21/19 @ 17:57 by Chloé Melton NP) Social History: adopted: No longterm: No Marital status: household members: spouse number of children: 2 current occupational status: retired Service: Yes branch: [employer] status: discharged assignments: [employer] Tobacco: Smoking Status: Former smoker Alcohol: alcohol intake: current Alcohol type: beer alcohol intake frequency: holiday/special occasion Dietary Habits: caffeine: Yes Type: coffee Physical Exam - Physical Exam General Appearance: Present: wd/wn, alert, moderate distress, other - Moaning and crying out in pain Head Exam: Present: normal inspection Eye Exam: Normal inspection: bilateral Neck: Present: normal inspection, nontender, supple Respiratory: Present: no respiratory distress, normal breath sounds, no accessory muscle use, lungs clear Cardiovascular/Chest: Present: regular rate, rhythm Gastrointestinal/Abdominal: Present: normal bowel sounds, soft, tenderness - severe RLQ, mild LLQ, distended - mild, bloated appearing, guarding Extremity Exam: Present: normal inspection, normal range of motion Neurological Exam: Present: alert, oriented, normal mood/affect, no motor/sensory deficits Skin Exam: Present: normal color, warm/dry Progress - Results and Orders Patient's Lab Results:: I have reviewed the patient's lab results. - Vital Signs Patient's Vital Signs:: I have reviewed the patient's vital signs. Vital Signs: Vital Signs 06/21/19 15:04 Temperature 36.4 C Pulse Rate 75 Respiratory Rate 16 Blood Pressure 151/84 H O2 Sat by Pulse Oximetry 94 - X-Ray X-Ray #1 X-Ray: abdomen Interpretation: Interp. by me X-ray Comments: Dilated loops of bowel suggestive on ongoing obstruction - Progress/Reassessment Chief Complaint: Abdominal Pain Progress:: Improved Plan - Plan Plan: I contacted the patient's primary care provider, Dr. Whaley, who had just discharged the patient home yesterday. He saw the patient in the emergency department. The patient's abdominal x-ray does not show significant improvement since the day he was admitted. Dr. Whaley agreed to admit the patient to observation. A CT scan of the abdomen and pelvis has been ordered. The patient will be n.p.o. and will be receiving IV fluids. Departure Clinical Impression: Partial small bowel obstruction - Departure Disposition: Still a patient Condition: Stable
[2019-06-21] MEDS ORDERED: ONDANSETRON HCL/PF 2 MG/ML VIAL IV ONE (15:48)
[2019-06-21] MEDS ORDERED: MORPHINE SULFATE 2 MG/ML DISP.SYRIN IV ONE (15:48)
[2019-06-21] MEDS ORDERED: NORMAL SALINE 1,000 ML IV ONE (17:25)
[2019-06-21] MEDS ORDERED: DIATRIZOATE MEGLUMINE, SODIUM 30 ML BTL PO ONE (17:25)
[2019-06-21 20:12] LABS: Urine Bilirubin Negative (NEGATIVE); Urine Blood Negative /ul (NEGATIVE); Urine Ketone Negative (NEGATIVE); Urine Nitrite Negative (NEGATIVE); Urine Protein Negative (NEGATIVE); Urine Urobilinogen Normal (NORMAL); Urine pH 5.5 pH (5.0-7.0)
[2019-06-21 20:24] LABS: Urine Appearance Clear (CLEAR); Urine Bacteria TRACE; Urine Color Yellow; Urine RBC None Seen /hpf (0-5); Urine WBC TRACE /hpf (0-5)
[2019-06-21] MEDS ORDERED: MORPHINE SULFATE 4 MG/ML SYRG IV PRN (21:50)
[2019-06-21] MEDS ORDERED: ONDANSETRON HCL/PF 2 MG/ML VIAL IV PRN (21:50)
--- NOTE | 2019-06-21 22:54 | HP ---
Chief Complaint - Chief Complaint Date of Service: 06/21/19 Time of Service: 17:00 Chief Complaint: Abdominal pain History of Present Illness: Horace is a 79 yo male with COPD who was recently admitted for partial small bowel obstruction with bilateral inguinal hernias. He had his hernias reduced and small bowel obstruction resolved. He had improvement of his pain and was having bowel movements. He was discharged to home, but began having severe 10/10 abdominal pain and returned to the ER. Abdominal xray and CT were completed which reported strangulated hernia, this was discussed with supervisor special education physician who reviewed imaging and reported no strangulation or obstruction. ER requested admission for observation due to severe abdominal pain. He reports he is still having bowel movements and passing gas. Medical History (Last Reviewed 06/21/19 @ 22:17 by Maci Wolff RN) COPD (chronic obstructive pulmonary disease) (Chronic) GERD (gastroesophageal reflux disease) (Chronic) Onset Date: Unknown Coronary artery disease (Chronic) Onset Date: Unknown Angina pectoris, unspecified (Inactive) Onset Date: Unknown Hyperlipidemia (Chronic) Onset Date: Unknown HTN (hypertension) (Chronic) Onset Date: Unknown CHF (congestive heart failure) (Chronic) Onset Date: 03/13/16 COPD (chronic obstructive pulmonary disease) Onset Date: Unknown Acute respiratory failure with hypoxia Onset Date: Unknown Brain aneurysm Onset Date: Unknown DVT (deep venous thrombosis) Onset Date: Unknown Depression Onset Date: Unknown History of stress test Onset Date: 07/26/02 History of stress test Onset Date: 02/15/99 Kidney calculi Onset Date: Unknown Subdural hemorrhage Onset Date: ~2004 2000, 2004 3 brain aneurysms Negative Colorectal Cancer Screening using Cologuard Onset Date: 01/20/17 Surgical History: Surgical History (Last Reviewed 06/21/19 @ 22:17 by Maci Wolff RN) H/O lithotripsy (Resolved) Onset Date: Unknown History of cholecystectomy (Resolved) Onset Date: ~2006 H/O brain surgery (Resolved) Onset Date: ~2004 x3; brain aneurysm History of angioplasty Onset Date: ~1997 History of colonoscopy Onset Date: ~2000 History of coronary artery stent placement Onset Date: ~12/2008 Right. History of embolic filter insertion Onset Date: Unknown Family History: Family History (Last Reviewed 06/21/19 @ 22:17 by Maci Wolff RN) Mother Heart disease Brother Heart disease Sister Heart disease Social History: (Last Reviewed 06/21/19 @ 22:17 by Maci Wolff RN) Social History: adopted: No assisted: No Marital status: household members: spouse number of children: 2 current occupational status: retired Service: Yes branch: [employer] status: discharged assignments: [employer] Tobacco: Smoking Status: Former smoker Alcohol: alcohol intake: current Alcohol type: beer alcohol intake frequency: holiday/special occasion Dietary Habits: caffeine: Yes Type: coffee Review Of Systems (GEN) - Review of Systems Generalized/Overall Review: Absent: Weakness, Chills, Fever EENTM: Present: No Symptoms Reported Respiratory: Absent: Cough, Shortness of Breath Cardiac: Absent: Chest Pain, Edema Abdominal: Present: Abdominal Pain. Absent: Nausea, Vomiting, Hematemesis, Constipation, Diarrhea Genitourinary: Present: No Symptoms Reported Musculoskeletal: Present: No Symptoms Reported Neurological: Present: No Symptoms Reported Skin: Present: No Symptoms Reported Immunizations: IMMUNIZATION HX Immunizations Up to Date No History of Influenza Vaccine No Hx Pneumococcal Vaccination No Allergies/Adverse Reactions: Allergies Allergy/AdvReac Type Severity Reaction Status Date / Time influenza virus vaccine tvs Allergy Intermediate Hives Verified 06/21/19 15:07 [id number](65 years up) [From Fluad 2879-6509 (65 yr up)(PF)] vaccine adjuvant emulsion Allergy Intermediate Hives Verified 06/21/19 15:07 [id number] [From Fluad 4169-4700 (65 yr up)(PF)] carbamazepine [From Tegretol] Allergy Mild Hives Verified 06/21/19 15:07 Penicillins Allergy Mild Hives Verified 06/21/19 15:07 Home Medications: HOME MEDICATIONS Aspirin [Aspirin Chewable] 81 mg PO DAILY 09/16/12 [Last Taken 05/30/18] metoprolol tartrate 25 mg tablet 12.5 mg PO BID #90 tab 06/09/18 [Last Taken Unknown] simvastatin 40 mg tablet 40 mg PO HS #90 tab 06/09/18 [Last Taken Unknown] omeprazole 20 mg capsule,delayed release 20 mg PO DAILY 12/13/18 [Last Taken Unknown] Albuterol Sulfate/Ipratropium [Duoneb 2.5-0.5MG/3ML Soln] 3 ml INHALATION Q4H PRN #120 nebu 03/14/19 [Last Taken Unknown] Exam - Exam Vital Signs: Vital Signs - Last Taken Temp 35.8 C L 06/21/19 21:54 Pulse 70 06/21/19 21:54 Resp 25 H 06/21/19 21:54 BP 114/75 06/21/19 21:54 Pulse Ox 96 06/21/19 21:54 Constitutional: Present: Alert, Oriented x3, Cooperative ENT Exam: Present: hearing grossly normal Eye Exam: bilateral eye: normal inspection Respiratory: Present: lungs clear, normal breath sounds, decreased breath sounds - bilateral base Cardiovascular/Chest: Present: regular rate, rhythm, no murmur Abdomen: Present: Normal bowel sounds, soft, nontender, nondistended, hernia - bilateral inguinal hernias, soft and nontender Skin Exam: Present: normal color, warm/dry, no cyanosis Diagnostic Studies: Abnormal Lab Results 06/21/19 06/21/19 Range/Units 15:23 15:23 MCH 26.7 L (27-31) pg MCHC 30.9 L (32-36) g/dl RDW 16.7 H (11.5-14.0) % Immature Gran % (Auto) 0.80 H (0.001-0.429) % Immature Gran # (Auto) 0.08 H (0.000-0.0310) K/mm3 Monocytes % 10.1 H (0.0-9) % Neutrophils # 6.8 H (1.3-6.0) K/mm3 Sodium 143 H (132-142) mmol/L Plasma Sodium 143 H (130-142) mmol/L Chloride 107 H (97-106) mmol/L Anion Gap 15.3 H (6.8-13.8) mmol/L ALT 10 L (19-67) U/L Albumin 3.2 L (3.4-5.0) gm/dl Laboratory Results WBC 10.1 K/mm3 (4.0-10.5) 06/21/19 15:23 RBC 5.32 M/mm3 (4.7-6.0) 06/21/19 15:23 Hgb 14.2 gm/dL (13.5-18.0) 06/21/19 15:23 Hct 46.0 % (42.0-52.0) 06/21/19 15:23 MCV 86.5 fl (78-100) 06/21/19 15:23 MCH 26.7 pg (27-31) L 06/21/19 15:23 MCHC 30.9 g/dl (32-36) L 06/21/19 15:23 RDW 16.7 % (11.5-14.0) H 06/21/19 15:23 Plt Count 235 K/mm3 (150-450) 06/21/19 15:23 MPV 9.5 fl (8-11.3) 06/21/19 15:23 Immature Gran % (Auto) 0.80 % (0.001-0.429) H 06/21/19 15: Immature Gran # (Auto) 0.08 K/mm3 (0.000-0.0310) H 06/21/19 15:23 Neutrophils % 67.0 % (42-75.0) 06/21/19 15:23 Lymphocytes % 21.2 % (20-51) 06/21/19 15:23 Monocytes % 10.1 % (0.0-9) H 06/21/19 15:23 Eosinophils % 0.4 % (0.0-3.0) 06/21/19 15: Basophils % 0.5 % (0.0-1.0) 06/21/19 15: Nucleated RBC % 0.0 k/mm3 (0-1) 06/21/19 15:23 Neutrophils # 6.8 K/mm3 (1.3-6.0) H 06/21/19 15:23 Lymphocytes # 2.14 k/mm3 (1.5-3.5) 06/21/19 15: Monocytes # 1.0 k/mm3 (0.0-1.0) 06/21/19 15:23 Eosinophils # 0.0 k/mm3 (0.0-0.7) 06/21/19 15: Absolute Basophils 0.1 k/mm3 (0.0-0.1) 06/21/19 15:23 Sodium 143 mmol/L (132-142) H 06/21/19 15:23 Plasma Sodium 143 mmol/L (130-142) H 06/21/19 15:23 Potassium 4.0 mmol/L (3.4-4.6) 06/21/19 15:23 Chloride 107 mmol/L (97-106) H 06/21/19 15:23 Carbon Dioxide 24.7 mmol/L (24-32.6) 06/21/19 15:23 Anion Gap 15.3 mmol/L (6.8-13.8) H 06/21/19 15:23 BUN 17 mg/dL (6-23) 06/21/19 15:23 Creatinine 1.15 mg/dL (0.4-1.4) 06/21/19 15:23 Est GFR (Non-Af Amer) 65 mL/min (60-130) D 06/21/19 15:23 BUN/Creatinine Ratio 14.8 (9.0-21.6) 06/21/19 15:23 Random Glucose 104 mg/dL (70-110) D 06/21/19 15:23 Calcium 8.7 mg/dL (7.9-10.9) 06/21/19 15:23 Calcium Adj for Albumin 9.0 mg/dL (8.4-10.2) 06/21/19 15:23 Total Bilirubin 0.7 mg/dL (0.0-1.1) 06/21/19 15:23 AST 19 U/L (0-48) 06/21/19 15:23 ALT 10 U/L (19-67) L 06/21/19 15:23 Alkaline Phosphatase 116 U/L (50-170) 06/21/19 15:23 Total Protein 6.9 gm/dL (6.2-8.2) 06/21/19 15:23 Albumin 3.2 gm/dl (3.4-5.0) L 06/21/19 15:23 Amylase 76 U/L (25-115) 06/21/19 15:23 Lipase 108 U/L (73-393) 06/21/19 15:23 Urine Color Yellow 06/21/19 20:07 Urine Appearance Clear (CLEAR) 06/21/19 20: Urine pH 5.5 pH (5.0-7.0) 06/21/19 20:07 Ur Specific [place] 1.020 SP.GR. (1.005-1.030) 06/21/19 20:07 Urine Protein Negative mg/dL (NEGATIVE) 06/21/19 20:07 Urine Glucose (UA) Negative mg/dL (NEGATIVE) 06/21/19 20:07 Urine Ketones Negative mg/dL (NEGATIVE) 06/21/19 20:07 Urine Blood Negative /ul (NEGATIVE) 06/21/19 20: Urine Nitrate Negative (NEGATIVE) 06/21/19 20: Urine Bilirubin Negative mg/dl (NEGATIVE) 06/21/19 20: Urine Urobilinogen Normal EU/dl (NORMAL) 06/21/19 20: Ur Leukocyte Esterase Negative /ul (NEGATIVE) 06/21/19 20: Urine RBC None seen /hpf (0-5) 06/21/19 20: Urine WBC Trace /hpf (0-5) 06/21/19 20: Ur Epithelial Cells 0-5 /hpf (0-5) 06/21/19 20: Urine Bacteria Trace (NONE) 06/21/19 20: Urine Culture Comments No culture indicated 06/21/19 20: Assessment/Plan - Procedures Results: Horace is a 79 yo male with severe abdominal pain. Vitals are stable and no leukocytosis. Surgery reviewed CT and does not believe there is evidence of strangulation or obstruction. He is passing gas and stool and therefore does not clinically have bowel obstruction. His hernia is large but not likely to strangulate and is nontender on my exam. I am unsure his abdominal pain etiology. Will monitor in observation. - Assessment/Plan (1) Abdominal pain Problem: Resolved Qualifiers: Abdominal location: unspecified location Qualified Code(s): R10.9 - Unspecified abdominal pain (2) Bilateral inguinal hernia Problem: Acute Qualifiers: Obstruction and gangrene presence: without obstruction or gangrene Recurrence: not specified as recurrent Qualified Code(s): K40.20 - Bilateral inguinal hernia, without obstruction or gangrene, not specified as recurrent
[2019-06-22] MEDS ORDERED: MORPHINE SULFATE 2 MG/ML DISP.SYRIN IV PRN (08:00)
[2019-06-22] MEDS ORDERED: ALBUTEROL SULFATE/IPRATROPIUM 3 ML NEBU IH PRN (10:53)
[2019-06-22] MEDS ORDERED: KETOROLAC TROMETHAMINE 30 MG/ML VIAL IV PRN (12:50)
[2019-06-22] MEDS: SIMVASTATIN 40 MG TABLET PO SCH (20:39)
[2019-06-22] MEDS: METOPROLOL TARTRATE 25 MG TABLET PO SCH (20:39)
[2019-06-23] MEDS: PANTOPRAZOLE SODIUM 20 MG TABLET.DR PO SCH (06:46)
[2019-06-23] MEDS ORDERED: FUROSEMIDE 10 MG/ML VIAL IV ONE (07:47)
[2019-06-23] MEDS ORDERED: FUROSEMIDE 40 MG TABLET PO ONE (08:16)
[2019-06-23] MEDS: ASPIRIN 81 MG TAB.CHEW PO SCH (08:46)
[2019-06-23] MEDS: METOPROLOL TARTRATE 25 MG TABLET PO SCH ×2 (08:47→21:18)
[2019-06-23 09:48] LABS: Hematocrit 42.9 % (42.0-52.0); Hemoglobin 13.4 gm/dL (13.5-18.0); Mean Cell Volume 85.8 fl (78-100); Mean Corpuscular Hemoglobin 26.8 pg (27-31); Mean Corpuscular Hgb Conc 31.2 g/dl (32-36); Mean Platelet Volume 9.2 fl (8-11.3); Neutrophil # 8.7 K/mm3 (1.3-6.0); Neutrophil % 75.8 % (42-75.0); Platelet Count 261 K/mm3 (150-450); Red Cell Distribution Width 16.5 % (11.5-14.0); White Blood Count 11.5 K/mm3 (4.0-10.5)
[2019-06-23 09:59] LABS: Albumin * 2.8 gm/dl (3.4-5.0); Anion Gap 12.6 mmol/L (6.8-13.8); BUN/Creatinine Ratio 14.8 (9.0-21.6); Bilirubin, Total 0.6 mg/dL (0.0-1.1); Calcium * 8.4 mg/dL (7.9-10.9); Carbon Dioxide 25.1 mmol/L (24-32.6); Potassium 3.7 mmol/L (3.4-4.6); Total Protein 6.3 gm/dL (6.2-8.2)
--- NOTE | 2019-06-23 11:18 | PN ---
Subjective - Date and Time Seen Date: 06/22/19 Time: 12:30 Subjective Narrative: Horace is confused today. He is seeing mice in his ceiling and bugs on the ceiling tiles. He reports abdominal pain at times 10/10, but then pain will go away. He is having bowel movements multiple times throughout the day. Objective - Vitals Vitals: Last Vital Signs Selected Entries 06/22/19 07:03 Temperature 36.6 C Pulse Rate 63 Respiratory Rate 18 Blood Pressure 123/63 O2 Sat by Pulse Oximetry 97 Oxygen Flow Rate 2 - Abnormal Lab Findings Abnormal Lab Findings: Abnormal Lab Results 06/23/19 06/23/19 06/23/19 Range/Units 00:57 07:26 09:42 WBC 11.5 H (4.0-10.5) K/mm3 Hgb 13.4 L (13.5-18.0) gm/dL MCH 26.8 L (27-31) pg MCHC 31.2 L (32-36) g/dl RDW 16.5 H (11.5-14.0) % Immature Gran % (Auto) 0.70 H (0.001-0.429) % Immature Gran # (Auto) 0.08 H (0.000-0.0310) K/mm3 Neutrophils % 75.8 H (42-75.0) % Lymphocytes % 12.1 L (20-51) % Monocytes % 10.9 H (0.0-9) % Neutrophils # 8.7 H (1.3-6.0) K/mm3 Lymphocytes # 1.39 L (1.5-3.5) k/mm3 Monocytes # 1.3 H (0.0-1.0) k/mm3 pCO2 28.4 L (35.0-48.0) mmHg pO2 70.9 L (83.0-108.0) mmHg HCO3 18.2 L (21.0-28.0) mmol/L Base Excess -4.8 L (-2.0-3.0) mmol/L Chloride (97-106) mmol/L ALT (19-67) U/L B-Natriuretic Peptide 1971 H (5-650) pg/mL Albumin (3.4-5.0) gm/dl 06/23/19 Range/Units 09:42 WBC (4.0-10.5) K/mm3 Hgb (13.5-18.0) gm/dL MCH (27-31) pg MCHC (32-36) g/dl RDW (11.5-14.0) % Immature Gran % (Auto) (0.001-0.429) % Immature Gran # (Auto) (0.000-0.0310) K/mm3 Neutrophils % (42-75.0) % Lymphocytes % (20-51) % Monocytes % (0.0-9) % Neutrophils # (1.3-6.0) K/mm3 Lymphocytes # (1.5-3.5) k/mm3 Monocytes # (0.0-1.0) k/mm3 pCO2 (35.0-48.0) mmHg pO2 (83.0-108.0) mmHg HCO3 (21.0-28.0) mmol/L Base Excess (-2.0-3.0) mmol/L Chloride 107 H (97-106) mmol/L ALT 15 L (19-67) U/L B-Natriuretic Peptide (5-650) pg/mL Albumin 2.8 L (3.4-5.0) gm/dl - Exam Constitutional: Present: Alert, Cooperative, No distress. Absent: Oriented x3 Respiratory: Present: decreased breath sounds - bilateral base Cardiovascular/Chest: Present: regular rate, rhythm, no murmur Abdomen: Present: Normal bowel sounds, soft, tender - ruq tenderness Skin Exam: Present: normal color, warm/dry, no cyanosis Assessment/Plan Plan Narrative: Horace is having delirium that I suspect is secondary to the morphine given to this this morning and overnight for his abdominal pain. Will discontinue morphine and start toradol for abdominal pain. I am unsure as to the cause to his abdominal pain. I reviewed the abdominal CT with Dr. Land that sees no strangulated hernia and no obstruction. Horace is not clinically obstructed as he is having bowel movements. Will continue to monitor in observation for the delirium and expect that it will resolve if we stay off morphine. If this improves he may be discharged to home tomorrow. - Problems/Diagnosis (1) Delirium Problem: Acute (2) Abdominal pain Problem: Resolved Qualifiers: Abdominal location: unspecified location Qualified Code(s): R10.9 - Unspecified abdominal pain (3) Bilateral inguinal hernia Problem: Acute Qualifiers: Obstruction and gangrene presence: without obstruction or gangrene Recurrence: not specified as recurrent Qualified Code(s): K40.20 - Bilateral inguinal hernia, without obstruction or gangrene, not specified as recurrent (4) COPD (chronic obstructive pulmonary disease) Problem: Acute Qualifiers: COPD type: unspecified COPD Qualified Code(s): J44.9 - Chronic obstructive pulmonary disease, unspecified (5) Chronic respiratory failure Problem: Acute Qualifiers: Respiratory failure complication: hypoxia Qualified Code(s): J96.11 - Chronic respiratory failure with hypoxia
[2019-06-23] MEDS ORDERED: AZITHROMYCIN 250 MG TABLET PO ONE (13:00)
--- NOTE | 2019-06-23 13:03 | PN ---
Subjective - Date and Time Seen Date: 06/23/19 Time: 12:41 Objective Objective Narrative: Horace remains confused today. He is seeing mice and bugs still. He reports abdominal pain comes and goes and he feels short of breath at times. He reports abdominal pain is right upper and near ribs. This pain is worse with coughing and breathing. He reports having bowel movements. Overnight he had an episode of confusion and hypoxia when he removed his oxygen. He normally wears oxygen at night due to COPD. He is unsure if his shortness of breath and cough are worse then normal. Chest xray obtained last night shows pulmonary edema vs infiltrates. WBC is elevated today. No fevers. - Vitals Vitals: Last Vital Signs Temp 36.8 C 06/23/19 10:29 Pulse 57 L 06/23/19 10:29 Resp 16 06/23/19 10:29 BP 127/59 06/23/19 10:29 Pulse Ox 96 06/23/19 10:29 - Abnormal Lab Findings Abnormal Lab Findings: Abnormal Lab Results 06/23/19 06/23/19 06/23/19 Range/Units 00:57 07:26 09:42 WBC 11.5 H (4.0-10.5) K/mm3 Hgb 13.4 L (13.5-18.0) gm/dL MCH 26.8 L (27-31) pg MCHC 31.2 L (32-36) g/dl RDW 16.5 H (11.5-14.0) % Immature Gran % (Auto) 0.70 H (0.001-0.429) % Immature Gran # (Auto) 0.08 H (0.000-0.0310) K/mm3 Neutrophils % 75.8 H (42-75.0) % Lymphocytes % 12.1 L (20-51) % Monocytes % 10.9 H (0.0-9) % Neutrophils # 8.7 H (1.3-6.0) K/mm3 Lymphocytes # 1.39 L (1.5-3.5) k/mm3 Monocytes # 1.3 H (0.0-1.0) k/mm3 pCO2 28.4 L (35.0-48.0) mmHg pO2 70.9 L (83.0-108.0) mmHg HCO3 18.2 L (21.0-28.0) mmol/L Base Excess -4.8 L (-2.0-3.0) mmol/L Chloride (97-106) mmol/L ALT (19-67) U/L B-Natriuretic Peptide 1971 H (5-650) pg/mL Albumin (3.4-5.0) gm/dl 06/23/19 Range/Units 09:42 WBC (4.0-10.5) K/mm3 Hgb (13.5-18.0) gm/dL MCH (27-31) pg MCHC (32-36) g/dl RDW (11.5-14.0) % Immature Gran % (Auto) (0.001-0.429) % Immature Gran # (Auto) (0.000-0.0310) K/mm3 Neutrophils % (42-75.0) % Lymphocytes % (20-51) % Monocytes % (0.0-9) % Neutrophils # (1.3-6.0) K/mm3 Lymphocytes # (1.5-3.5) k/mm3 Monocytes # (0.0-1.0) k/mm3 pCO2 (35.0-48.0) mmHg pO2 (83.0-108.0) mmHg HCO3 (21.0-28.0) mmol/L Base Excess (-2.0-3.0) mmol/L Chloride 107 H (97-106) mmol/L ALT 15 L (19-67) U/L B-Natriuretic Peptide (5-650) pg/mL Albumin 2.8 L (3.4-5.0) gm/dl - Exam Constitutional: Present: Alert, Cooperative. Absent: Oriented x3 ENT Exam: Present: hearing grossly normal Respiratory: Present: no respiratory distress, decreased breath sounds - bilateral base Cardiovascular/Chest: Present: regular rate, rhythm, no murmur Abdomen: Present: Normal bowel sounds, soft, nontender, nondistended, tender - RUQ and right lower ribs Skin Exam: Present: normal color, warm/dry, no cyanosis Assessment/Plan Plan Narrative: Horace is a 79 yo male with right middle lobe and bilateral base pneumonia based on leukocytosis and chest xray findings. As his delirium persists today despite not getting any more morphine it appears that this may be related to the pneumonia. Will start with azithromycin and rocephin and albuterol inhaler. Because he is hospitalized with a respiratory infection he meets criteria for COVID testing. Will move him to the SCU under respiratory precautions in isolation where he can be more closely monitored than our rooms in 125 [address] because of his dilirium. He continues to have bowel movements today. I continue to believe there is no obstruction and his bilateral inguinal hernias are large and unlikely to strangulate. - Problems/Diagnosis (1) Pneumonia Problem: Acute Qualifiers: Pneumonia type: due to unspecified organism Laterality: right Lung location: middle lobe of lung Qualified Code(s): J18.9 - Pneumonia, unspecified organism (2) Delirium Problem: Acute (3) Delirium Problem: Acute (4) Abdominal pain Problem: Resolved Qualifiers: Abdominal location: unspecified location Qualified Code(s): R10.9 - Unspecified abdominal pain (5) Bilateral inguinal hernia Problem: Acute Qualifiers: Obstruction and gangrene presence: without obstruction or gangrene Recurrence: not specified as recurrent Qualified Code(s): K40.20 - Bilateral inguinal hernia, without obstruction or gangrene, not specified as recurrent (6) COPD (chronic obstructive pulmonary disease) Problem: Acute Qualifiers: COPD type: unspecified COPD Qualified Code(s): J44.9 - Chronic obstructive pulmonary disease, unspecified (7) Chronic respiratory failure Problem: Acute Qualifiers: Respiratory failure complication: hypoxia Qualified Code(s): J96.11 - Chronic respiratory failure with hypoxia
[2019-06-23] MEDS: ALBUTEROL SULFATE 2.5 MG/0.5 ML VIAL.NEB IH SCH (13:15)
[2019-06-23] MEDS: ACETAMINOPHEN 1,000 MG/100 ML BTL IV PRN ×2 (13:24→23:45)
[2019-06-23] MEDS: ENOXAPARIN SODIUM 40 MG/0.4 ML SYRG SC SCH (13:51)
[2019-06-23] MEDS: SIMVASTATIN 40 MG TABLET PO SCH (21:18)
[2019-06-24 06:52] LABS: Hematocrit 41.5 % (42.0-52.0); Mean Corpuscular Hemoglobin 26.6 pg (27-31); Mean Corpuscular Hgb Conc 31.3 g/dl (32-36); Mean Platelet Volume 9.8 fl (8-11.3); Neutrophil # 5.8 K/mm3 (1.3-6.0); Neutrophil % 70.3 % (42-75.0); Platelet Count 220 K/mm3 (150-450); Red Blood Count 4.88 M/mm3 (4.7-6.0); Red Cell Distribution Width 16.5 % (11.5-14.0); White Blood Count 8.2 K/mm3 (4.0-10.5)
[2019-06-24 07:23] LABS: Albumin * 2.6 gm/dl (3.4-5.0); Anion Gap 11.8 mmol/L (6.8-13.8); BUN/Creatinine Ratio 11.3 (9.0-21.6); Bilirubin, Total 0.7 mg/dL (0.0-1.1); Calcium * 8.2 mg/dL (7.9-10.9); Carbon Dioxide 26.5 mmol/L (24-32.6); Potassium 3.3 mmol/L (3.4-4.6)
[2019-06-24] MEDS ORDERED: POTASSIUM CHLORIDE 20 MEQ TABLET.SA PO ONE (08:33)
[2019-06-24] MEDS: ACETAMINOPHEN 1,000 MG/100 ML BTL IV PRN (08:54)
[2019-06-24] MEDS: AZITHROMYCIN 250 MG TABLET PO SCH (08:58)
[2019-06-24] MEDS: PANTOPRAZOLE SODIUM 20 MG TABLET.DR PO SCH (08:58)
[2019-06-24] MEDS: ASPIRIN 81 MG TAB.CHEW PO SCH (08:58)
[2019-06-24] MEDS: METOPROLOL TARTRATE 25 MG TABLET PO SCH ×2 (09:04→20:53)
[2019-06-24] MEDS: ENOXAPARIN SODIUM 40 MG/0.4 ML SYRG SC SCH (13:56)
[2019-06-24] MEDS: SIMVASTATIN 40 MG TABLET PO SCH (20:53)
--- NOTE | 2019-06-24 22:41 | PN ---
Subjective - Date and Time Seen Date: 06/24/19 Time: 12:20 Subjective Narrative: Feeling better. Nursing reports less confusion today. He still reports RUQ and epigastric abdominal pain at times. No fever or chills. He denies shortness of breath at this time. Objective - Vitals Vitals: Last Vital Signs Temp 36.7 C 06/24/19 17:31 Pulse 63 06/24/19 20:53 Resp 20 06/24/19 17:31 BP 137/76 06/24/19 20:53 Pulse Ox 97 06/24/19 17:31 - Abnormal Lab Findings Abnormal Lab Findings: Abnormal Lab Results 06/24/19 06/24/19 Range/Units 06:40 06:40 Hgb 13.0 L (13.5-18.0) gm/dL Hct 41.5 L (42.0-52.0) % MCH 26.6 L (27-31) pg MCHC 31.3 L (32-36) g/dl RDW 16.5 H (11.5-14.0) % Immature Gran % (Auto) 0.60 H (0.001-0.429) % Immature Gran # (Auto) 0.05 H (0.000-0.0310) K/mm3 Lymphocytes % 15.3 L (20-51) % Monocytes % 11.8 H (0.0-9) % Lymphocytes # 1.26 L (1.5-3.5) k/mm3 Sodium 143 H (132-142) mmol/L Plasma Sodium 143 H (130-142) mmol/L Potassium 3.3 L (3.4-4.6) mmol/L Chloride 108 H (97-106) mmol/L ALT 14 L (19-67) U/L Total Protein 6.0 L (6.2-8.2) gm/dL Albumin 2.6 L (3.4-5.0) gm/dl - Exam Constitutional: Present: Alert, Oriented x3, Cooperative ENT Exam: Present: hearing grossly normal Respiratory: Present: lungs clear, no respiratory distress, decreased breath sounds - bilateral base Cardiovascular/Chest: Present: regular rate, rhythm, no murmur Abdomen: Present: Normal bowel sounds, soft, nontender, nondistended Skin Exam: Present: normal color, warm/dry, no cyanosis Assessment/Plan Plan Narrative: WBC normalized today. No fever, confusion improved. Continue antibiotics, awaiting COVID. Continue in isolation. His reports today that she is unable to care for him at home. Will look into care facility for SNF, will consult PT and OT to evaluate. - Problems/Diagnosis (1) Pneumonia Problem: Acute Qualifiers: Pneumonia type: due to unspecified organism Laterality: right Lung location: middle lobe of lung Qualified Code(s): J18.9 - Pneumonia, unspecified organism (2) Delirium Problem: Acute (3) Delirium Problem: Acute (4) Abdominal pain Problem: Resolved Qualifiers: Abdominal location: unspecified location Qualified Code(s): R10.9 - Unspecified abdominal pain (5) Bilateral inguinal hernia Problem: Acute Qualifiers: Obstruction and gangrene presence: without obstruction or gangrene Recurrence: not specified as recurrent Qualified Code(s): K40.20 - Bilateral inguinal hernia, without obstruction or gangrene, not specified as recurrent (6) COPD (chronic obstructive pulmonary disease) Problem: Acute Qualifiers: COPD type: unspecified COPD Qualified Code(s): J44.9 - Chronic obstructive pulmonary disease, unspecified (7) Chronic respiratory failure Problem: Acute Qualifiers: Respiratory failure complication: hypoxia Qualified Code(s): J96.11 - Chronic respiratory failure with hypoxia
[2019-06-25] MEDS: ACETAMINOPHEN 1,000 MG/100 ML BTL IV PRN (04:24)
[2019-06-25] MEDS: AZITHROMYCIN 250 MG TABLET PO SCH (09:05)
[2019-06-25] MEDS: METOPROLOL TARTRATE 25 MG TABLET PO SCH ×2 (09:05→20:39)
[2019-06-25] MEDS: ASPIRIN 81 MG TAB.CHEW PO SCH (09:05)
[2019-06-25] MEDS: PANTOPRAZOLE SODIUM 20 MG TABLET.DR PO SCH (09:06)
[2019-06-25] MEDS ORDERED: PANTOPRAZOLE SODIUM 20 MG TABLET.DR PO ONE (09:18)
[2019-06-25 09:37] LABS: Hemoglobin 14.2 gm/dL (13.5-18.0); Mean Cell Volume 87.1 fl (78-100); Mean Corpuscular Hemoglobin 26.9 pg (27-31); Mean Corpuscular Hgb Conc 30.9 g/dl (32-36); Mean Platelet Volume 9.5 fl (8-11.3); Neutrophil # 5.7 K/mm3 (1.3-6.0); Neutrophil % 65.7 % (42-75.0); Platelet Count 260 K/mm3 (150-450); Red Blood Count 5.28 M/mm3 (4.7-6.0); Red Cell Distribution Width 16.6 % (11.5-14.0); White Blood Count 8.7 K/mm3 (4.0-10.5)
[2019-06-25 10:00] LABS: Albumin * 2.7 gm/dl (3.4-5.0); Anion Gap 18.4 mmol/L (6.8-13.8); BUN/Creatinine Ratio 9.5 (9.0-21.6); Bilirubin, Total 0.4 mg/dL (0.0-1.1); Ca. Corrected For Albumin 9.3 mg/dL (8.4-10.2); Calcium * 8.6 mg/dL (7.9-10.9); Potassium 3.4 mmol/L (3.4-4.6); Total Protein 6.4 gm/dL (6.2-8.2)
--- NOTE | 2019-06-25 10:17 | PN ---
Subjective - Date and Time Seen Date: 06/25/19 Time: 10:06 Subjective Narrative: Horace is out of isolation with his covid 19 coming back not detected. He reports continued abdominal pain at times. Some shortness of breath. Confusion is better today. Urinating and stooling without difficulty. Objective - Vitals Vitals: Last Vital Signs Temp 36.6 C 06/25/19 04:14 Pulse 66 06/25/19 09:05 Resp 18 06/25/19 04:14 BP 143/80 06/25/19 09:05 Pulse Ox 94 06/25/19 04:14 - Abnormal Lab Findings Abnormal Lab Findings: Abnormal Lab Results 06/25/19 06/25/19 Range/Units 09:30 09:30 MCH 26.9 L (27-31) pg MCHC 30.9 L (32-36) g/dl RDW 16.6 H (11.5-14.0) % Immature Gran % (Auto) 0.50 H (0.001-0.429) % Immature Gran # (Auto) 0.04 H (0.000-0.0310) K/mm3 Sodium 146 H (132-142) mmol/L Plasma Sodium 147 H (130-142) mmol/L Chloride 109 H (97-106) mmol/L Carbon Dioxide 22.0 L (24-32.6) mmol/L Anion Gap 18.4 H (6.8-13.8) mmol/L Est GFR (Non-Af Amer) 59 L D (60-130) mL/min Random Glucose 161 H D (70-110) mg/dL ALT 14 L (19-67) U/L Albumin 2.7 L (3.4-5.0) gm/dl - Exam Constitutional: Present: Alert, Oriented x3, Cooperative ENT Exam: Present: hearing grossly normal Respiratory: Present: lungs clear, normal breath sounds, decreased breath sounds - bilateral base Cardiovascular/Chest: Present: regular rate, rhythm, no murmur Abdomen: Present: Normal bowel sounds, soft, tender - diffuse to palpation, hernia - bilateral large inguinal hernias, non tender Skin Exam: Present: normal color, warm/dry, no cyanosis Assessment/Plan Plan Narrative: Continue azithromycin/rocephin. Changed breathing treatments to nebs prn since covid is negative. Will increase pantoprazole and add carafate to see if this helps with his abdominal pain. Unclear etiology. Bowels are working and it does not appear related to his hernia. Its possible they are gas pains and I suspect he is developing dementia. - Problems/Diagnosis (1) Pneumonia Problem: Acute Qualifiers: Pneumonia type: due to unspecified organism Laterality: right Lung location: middle lobe of lung Qualified Code(s): J18.9 - Pneumonia, unspecified organism (2) Delirium Problem: Acute (3) Delirium Problem: Acute (4) Abdominal pain Problem: Resolved Qualifiers: Abdominal location: unspecified location Qualified Code(s): R10.9 - Unspecified abdominal pain (5) Bilateral inguinal hernia Problem: Acute Qualifiers: Obstruction and gangrene presence: without obstruction or gangrene Recurrence: not specified as recurrent Qualified Code(s): K40.20 - Bilateral inguinal hernia, without obstruction or gangrene, not specified as recurrent (6) COPD (chronic obstructive pulmonary disease) Problem: Acute Qualifiers: COPD type: unspecified COPD Qualified Code(s): J44.9 - Chronic obstructive pulmonary disease, unspecified (7) Chronic respiratory failure Problem: Acute Qualifiers: Respiratory failure complication: hypoxia Qualified Code(s): J96.11 - Chronic respiratory failure with hypoxia
[2019-06-25] MEDS: SUCRALFATE 1 G TABLET PO SCH ×3 (12:08→20:42)
[2019-06-25] MEDS: ALBUTEROL SULFATE 2.5 MG/0.5 ML VIAL.NEB IH SCH ×2 (12:33→18:17)
[2019-06-25] MEDS: ENOXAPARIN SODIUM 40 MG/0.4 ML SYRG SC SCH (13:58)
[2019-06-25] MEDS: SIMVASTATIN 40 MG TABLET PO SCH (20:42)
[2019-06-26] MEDS: ALBUTEROL SULFATE 2.5 MG/0.5 ML VIAL.NEB IH SCH ×2 (00:18→06:05)
[2019-06-26] MEDS: SUCRALFATE 1 G TABLET PO SCH ×4 (07:10→20:38)
[2019-06-26] MEDS: PANTOPRAZOLE SODIUM 40 MG TABLET.EC PO SCH (07:10)
[2019-06-26] MEDS: ASPIRIN 81 MG TAB.CHEW PO SCH (08:36)
[2019-06-26] MEDS: AZITHROMYCIN 250 MG TABLET PO SCH (08:36)
[2019-06-26] MEDS: METOPROLOL TARTRATE 25 MG TABLET PO SCH ×2 (08:38→20:39)
[2019-06-26] MEDS ORDERED: ALBUTEROL SULFATE 2.5 MG/0.5 ML VIAL.NEB IH PRN (10:26)
--- NOTE | 2019-06-26 12:36 | PN ---
Subjective - Date and Time Seen Date: 06/26/19 Time: 11:00 Subjective Narrative: He reports doing well. No abdominal pain or shortness of breath. No fever or chills. Objective - Vitals Vitals: Last Vital Signs Temp 36.9 C 06/26/19 10:33 Pulse 66 06/26/19 10:33 Resp 24 H 06/26/19 10:33 BP 118/57 06/26/19 10:33 Pulse Ox 97 06/26/19 10:33 - Exam Constitutional: Present: Alert, Oriented x3, Cooperative ENT Exam: Present: hearing grossly normal Respiratory: Present: lungs clear, decreased breath sounds - bilateral base Cardiovascular/Chest: Present: regular rate, rhythm, no murmur Abdomen: Present: Normal bowel sounds, soft, nontender, nondistended Skin Exam: Present: normal color, warm/dry, no cyanosis Assessment/Plan Plan Narrative: Doing well today, abdominal pain is improved. Respiratory doing well. Planning to discharge to SNF tomorrow. - Problems/Diagnosis (1) Pneumonia Problem: Acute Qualifiers: Pneumonia type: due to unspecified organism Laterality: right Lung location: middle lobe of lung Qualified Code(s): J18.9 - Pneumonia, unspecified organism (2) Delirium Problem: Acute (3) Delirium Problem: Acute (4) Abdominal pain Problem: Resolved Qualifiers: Abdominal location: unspecified location Qualified Code(s): R10.9 - Unspecified abdominal pain (5) Bilateral inguinal hernia Problem: Acute Qualifiers: Obstruction and gangrene presence: without obstruction or gangrene Recurrence: not specified as recurrent Qualified Code(s): K40.20 - Bilateral inguinal hernia, without obstruction or gangrene, not specified as recurrent (6) COPD (chronic obstructive pulmonary disease) Problem: Acute Qualifiers: COPD type: unspecified COPD Qualified Code(s): J44.9 - Chronic obstructive pulmonary disease, unspecified (7) Chronic respiratory failure Problem: Acute Qualifiers: Respiratory failure complication: hypoxia Qualified Code(s): J96.11 - Chronic respiratory failure with hypoxia
[2019-06-26] MEDS: ENOXAPARIN SODIUM 40 MG/0.4 ML SYRG SC SCH (12:47)
[2019-06-26] MEDS: SIMVASTATIN 40 MG TABLET PO SCH (20:42)
[2019-06-27 06:19] LABS: Hematocrit 42.1 % (42.0-52.0); Mean Cell Volume 86.6 fl (78-100); Mean Corpuscular Hemoglobin 26.7 pg (27-31); Mean Corpuscular Hgb Conc 30.9 g/dl (32-36); Mean Platelet Volume 9.4 fl (8-11.3); Neutrophil # 5.7 K/mm3 (1.3-6.0); Neutrophil % 65.1 % (42-75.0); Platelet Count 235 K/mm3 (150-450); Red Blood Count 4.86 M/mm3 (4.7-6.0); Red Cell Distribution Width 16.3 % (11.5-14.0); White Blood Count 8.8 K/mm3 (4.0-10.5)
[2019-06-27] MEDS: SUCRALFATE 1 G TABLET PO SCH ×2 (06:27→11:00)
[2019-06-27] MEDS: PANTOPRAZOLE SODIUM 40 MG TABLET.EC PO SCH (06:28)
[2019-06-27 06:37] LABS: Albumin * 2.6 gm/dl (3.4-5.0); Anion Gap 15.2 mmol/L (6.8-13.8); BUN/Creatinine Ratio 13.5 (9.0-21.6); Bilirubin, Total 0.4 mg/dL (0.0-1.1); Ca. Corrected For Albumin 9.6 mg/dL (8.4-10.2); Calcium * 8.8 mg/dL (7.9-10.9); Carbon Dioxide 24.7 mmol/L (24-32.6); Potassium 3.9 mmol/L (3.4-4.6); Total Protein 6.1 gm/dL (6.2-8.2)
[2019-06-27] MEDS: AZITHROMYCIN 250 MG TABLET PO SCH (08:21)
[2019-06-27] MEDS: ASPIRIN 81 MG TAB.CHEW PO SCH (08:22)
[2019-06-27] MEDS: METOPROLOL TARTRATE 25 MG TABLET PO SCH (08:22)
--- NOTE | 2019-06-27 08:45 | DS ---
(1) Pneumonia Problem: Acute Qualifiers: Pneumonia type: due to unspecified organism Laterality: right Lung location: middle lobe of lung Qualified Code(s): J18.9 - Pneumonia, unspecified organism (2) Delirium Problem: Resolved (3) Abdominal pain Problem: Resolved Qualifiers: Abdominal location: unspecified location Qualified Code(s): R10.9 - Unspecified abdominal pain (4) Bilateral inguinal hernia Problem: Chronic Qualifiers: Obstruction and gangrene presence: without obstruction or gangrene Recurrence: not specified as recurrent Qualified Code(s): K40.20 - Bilateral inguinal hernia, without obstruction or gangrene, not specified as recurrent (5) COPD (chronic obstructive pulmonary disease) Problem: Chronic Qualifiers: COPD type: unspecified COPD Qualified Code(s): J44.9 - Chronic obstructive pulmonary disease, unspecified (6) Chronic respiratory failure Problem: Chronic Qualifiers: Respiratory failure complication: hypoxia Qualified Code(s): J96.11 - Chronic respiratory failure with hypoxia Date of Discharge:: 06/27/19 Hospital Course: Horace was admitted due to severe abdominal pain. Imaging suggested strangulated hernia and potential bowel obstruction but this was reviewed with Dr. Land and surgery and he did not see evidence of bowel obstruction or strangulation. Clinically this was true as well. Horace had upper abdominal pain and was passing stool and gas. He was initially given morphine for abdominal pain and then had delirium. Morphine was changed to toradol but he continued to have delirium. Overnight he became extremely delirious and removed his oxygen that he chronically uses at home and his O2 dropped to 80%. A Dr. Mcdonnell was called but by replacing oxygen and calming him down he improved. Dr. Mcdonnell orders of bloodwork and chest xray showed possible pulmonary edema vs infiltrates and WBC was elevated. He was given lasix and due to concern for pneumonia he was started on azithromycin and rocephin. Given he was hospitalized with respiratory condition, hypoxia, and new pneumonia he met criteria for COVID-19 testing. He was placed in proper isolation where he could also be closely monitored in the SCU because of his delirium. Ultimately his COVID-19 came back not detected and his delirium improved. Nursing spoke with his over the phone who said that he gets like that sometimes but reportedly not as bad. I have concern of some underlying dementia that is progressing. Mental status appeared to improve back to his baseline but he was significantly weak. I am afraid he is not strong enough to return home and have his help him. PT and OT was consulted and he was accepted at [facility] for SNF. He is medically doing well and able for discharge to [facility]. Procedures Performed: none Results and Findings: Lab Pending Results 06/21/19 15:23: WBC 10.1, RBC 5.32, Hgb 14.2, Hct 46.0, MCV 86.5, MCH 26.7 L, MCHC 30.9 L, RDW 16.7 H, Plt Count 235, MPV 9.5, Immature Gran % (Auto) 0.80 H, Immature Gran # (Auto) 0.08 H, Neutrophils % 67.0, Lymphocytes % 21.2, Monocytes % 10.1 H, Eosinophils % 0.4, Basophils % 0.5, Nucleated RBC % 0.0, Neutrophils # 6.8 H, Lymphocytes # 2.14, Monocytes # 1.0, Eosinophils # 0.0, Absolute Basophils 0.1 06/21/19 15:23: Sodium 143 H, Plasma Sodium 143 H, Potassium 4.0, Chloride 107 H, Carbon Dioxide 24.7, Anion Gap 15.3 H, BUN 17, Creatinine 1.15, Est GFR (Non- Af Amer) 65 D, BUN/Creatinine Ratio 14.8, Random Glucose 104 D, Calcium 8.7, Calcium Adj for Albumin 9.0, Total Bilirubin 0.7, AST 19, ALT 10 L, Alkaline Phosphatase 116, Total Protein 6.9, Albumin 3.2 L, Amylase 76, Lipase 108 06/21/19 20:07: Urine Color Yellow, Urine Appearance Clear, Urine pH 5.5, Ur Specific [place] 1.020, Urine Protein Negative, Urine Glucose (UA) Negative, Urine Ketones Negative, Urine Blood Negative, Urine Nitrate Negative, Urine Bilirubin Negative, Urine Urobilinogen Normal, Ur Leukocyte Esterase Negative, Urine RBC None seen, Urine WBC Trace, Ur Epithelial Cells 0-5, Urine Bacteria Trace, Urine Culture Comments No culture indicated 06/23/19 00:57: Troponin I 0.029 06/23/19 00:57: B-Natriuretic Peptide 1971 H 06/23/19 07:26: pCO2 28.4 L, pO2 70.9 L, HCO3 18.2 L, Total CO2 19.1, Base Excess -4.8 L, ABG pH 7.43, ABG O2 Sat (Measured) 94.9 06/23/19 09:42: WBC 11.5 H, RBC 5.00, Hgb 13.4 L, Hct 42.9, MCV 85.8, MCH 26.8 L, MCHC 31.2 L, RDW 16.5 H, Plt Count 261, MPV 9.2, Immature Gran % (Auto) 0.70 H, Immature Gran # (Auto) 0.08 H, Neutrophils % 75.8 H, Lymphocytes % 12.1 L, Monocytes % 10.9 H, Eosinophils % 0.2, Basophils % 0.3, Nucleated RBC % 0.0, Neutrophils # 8.7 H, Lymphocytes # 1.39 L, Monocytes # 1.3 H, Eosinophils # 0.0, Absolute Basophils 0.0 06/23/19 09:42: Sodium 141, Plasma Sodium 141, Potassium 3.7, Chloride 107 H, Carbon Dioxide 25.1, Anion Gap 12.6, BUN 17, Creatinine 1.15, Est GFR (Non-Af Amer) 65, BUN/Creatinine Ratio 14.8, Random Glucose 105, Calcium 8.4, Calcium Adj for Albumin 9.0, Total Bilirubin 0.6, AST 23, ALT 15 L, Alkaline Phosphatase 107, Total Protein 6.3, Albumin 2.8 L 06/23/19 11:42: SARS-CoV-2 (PCR) Not detected 06/24/19 06:40: WBC 8.2 D, RBC 4.88, Hgb 13.0 L, Hct 41.5 L, MCV 85.0, MCH 26.6 L, MCHC 31.3 L, RDW 16.5 H, Plt Count 220, MPV 9.8, Immature Gran % (Auto) 0.60 H, Immature Gran # (Auto) 0.05 H, Neutrophils % 70.3, Lymphocytes % 15.3 L, Monocytes % 11.8 H, Eosinophils % 1.5, Basophils % 0.5, Nucleated RBC % 0.0, Neutrophils # 5.8, Lymphocytes # 1.26 L, Monocytes # 1.0, Eosinophils # 0.1, Absolute Basophils 0.0 06/24/19 06:40: Sodium 143 H, Plasma Sodium 143 H, Potassium 3.3 L, Chloride 108 H, Carbon Dioxide 26.5, Anion Gap 11.8, BUN 11, Creatinine 0.97, Est GFR (Non-Af Amer) 80 D, BUN/Creatinine Ratio 11.3, Random Glucose 94, Calcium 8.2, Calcium Adj for Albumin 9.0, Total Bilirubin 0.7, AST 19, ALT 14 L, Alkaline Phosphatase 94, Total Protein 6.0 L, Albumin 2.6 L 06/25/19 09:30: WBC 8.7, RBC 5.28, Hgb 14.2, Hct 46.0, MCV 87.1, MCH 26.9 L, MCHC 30.9 L, RDW 16.6 H, Plt Count 260, MPV 9.5, Immature Gran % (Auto) 0.50 H, Immature Gran # (Auto) 0.04 H, Neutrophils % 65.7, Lymphocytes % 23.0, Monocytes % 7.8, Eosinophils % 2.4, Basophils % 0.6, Nucleated RBC % 0.0, Neutrophils # 5.7, Lymphocytes # 2.00, Monocytes # 0.7, Eosinophils # 0.2, Absolute Basophils 0.1 06/25/19 09:30: Sodium 146 H, Plasma Sodium 147 H, Potassium 3.4, Chloride 109 H, Carbon Dioxide 22.0 L, Anion Gap 18.4 H, BUN 12, Creatinine 1.26, Est GFR (Non-Af Amer) 59 L D, BUN/Creatinine Ratio 9.5, Random Glucose 161 H D, Calcium 8.6, Calcium Adj for Albumin 9.3, Total Bilirubin 0.4, AST 14, ALT 14 L, Alkaline Phosphatase 94, Total Protein 6.4, Albumin 2.7 L 06/27/19 06:10: WBC 8.8, RBC 4.86, Hgb 13.0 L, Hct 42.1, MCV 86.6, MCH 26.7 L, MCHC 30.9 L, RDW 16.3 H, Plt Count 235, MPV 9.4, Immature Gran % (Auto) 0.70 H, Immature Gran # (Auto) 0.06 H, Neutrophils % 65.1, Lymphocytes % 19.4 L, Monocytes % 10.7 H, Eosinophils % 3.5 H, Basophils % 0.6, Nucleated RBC % 0.0, Neutrophils # 5.7, Lymphocytes # 1.70, Monocytes # 0.9, Eosinophils # 0.3, Absolute Basophils 0.1 06/27/19 06:10: Sodium 145 H, Plasma Sodium 145 H, Potassium 3.9, Chloride 109 H, Carbon Dioxide 24.7, Anion Gap 15.2 H, BUN 13, Creatinine 0.96, Est GFR (Non- Af Amer) 81 D, BUN/Creatinine Ratio 13.5, Random Glucose 91 D, Calcium 8.8, Calcium Adj for Albumin 9.6, Total Bilirubin 0.4, AST 36, ALT 29, Alkaline Phosphatase 80, Total Protein 6.1 L, Albumin 2.6 L Discharge Location: [facility] Disposition: [facility] Condition: Stable Level of Care: SNF Discharge Activity: Activity as tolerated Discharge Diet: General/regular food Referrals: Maxi Whaley DO [Primary Care Provider] - One Week (Video telehealth visit in 1 week.) Problem Oriented Discharge Instructions to Patient/Family: Community-Acquired Pneumonia, Adult, [id number] Additional Patient Instructions (free text): Oxygen at 2lpm continuous due to COPD and chronic respiratory failure Give today's azithromycin dose in the hospital, this is the last dose. Prescriptions (Any new or edited meds): Sucralfate [Carafate] 1 g PO ACHS #120 tab Transmission Status: Pending to [facility] Cefdinir [Omnicef] 300 mg PO Q12H #10 cap Transmission Status: Pending to [facility] Pantoprazole Sodium [Protonix] 40 mg PO DAILY@0700 #30 tablet. Transmission Status: Pending to [facility] Complete Home Medications List: Complete Home Medication List: Aspirin [Aspirin Chewable] 81 mg PO DAILY 09/16/12 metoprolol tartrate 25 mg tablet 12.5 mg PO BID #90 tab 06/09/18 simvastatin 40 mg tablet 40 mg PO HS #90 tab 06/09/18 Albuterol Sulfate/Ipratropium [Duoneb 2.5-0.5MG/3ML Soln] 3 ml INHALATION Q4H PRN #120 nebu 03/14/19 Cefdinir [Omnicef] 300 mg PO Q12H #10 cap 06/27/19 Pantoprazole Sodium [Protonix] 40 mg PO DAILY@0700 #30 tablet. 06/27/19 Sucralfate [Carafate] 1 g PO ACHS #120 tab 06/27/19 Forms: Patient Portal Registration
[2019-06-27 12:25] VITALS: BP 129/68
== END 2019-06-27 12:45 | DRG 194 ==
LOC: MS 14:57 → ER 14:57 → MS 17:50 → SCU 06-23 14:59 → MS 06-25 08:08
PROVIDERS: ADMIT Family Medicine; ATTEND Family Medicine
DX: F05 Delirium due to known physiological condition; K40.20 Bilateral inguinal hernia, without obstruction or gangrene, not specified as recurrent; J96.11 Chronic respiratory failure with hypoxia; R53.1 Weakness; R10.9 Unspecified abdominal pain; J18.9 Pneumonia, unspecified organism; I10 Essential (primary) hypertension; J44.9 Chronic obstructive pulmonary disease, unspecified
CPT/HCPCS: 36415; 36600; 71010; 71045; 71100; 74019; 74020; 74177; 80053; 81001; 82150; 82803; 83519; 83690; 83880; 84484; 85025; 93005; 94640; 96361; 96374; 96375; 96376; 97110; 97116; 97161; 99284; G0378; J0131; J2405; Q9963; Q9967

== ENCOUNTER 2020-02-08 09:55 | Inpatient (IN) ==
[2020-02-08] MEDS ORDERED: ALBUTEROL SULFATE/IPRATROPIUM 3 ML NEBU IH ONE (10:28)
[2020-02-08 11:17] LABS: Hematocrit 24.2 % (42.0-52.0); Mean Cell Volume 81.5 fl (78-100); Mean Corpuscular Hemoglobin 23.9 pg (27-31); Mean Corpuscular Hgb Conc 29.3 g/dl (32-36); Mean Platelet Volume 9.7 fl (8-11.3); Neutrophil # 3.3 K/mm3 (1.3-6.0); Neutrophil % 71.9 % (42-75.0); Platelet Count 212 K/mm3 (150-450); Red Blood Count 2.97 M/mm3 (4.7-6.0); Red Cell Distribution Width 19.4 % (11.5-14.0); White Blood Count 4.6 K/mm3 (4.0-10.5)
[2020-02-08 11:22] LABS: Hemoglobin 7.1 gm/dL (13.5-18.0)
[2020-02-08 11:33] LABS: Urine Bilirubin Negative (NEGATIVE); Urine Blood 50 /ul (NEGATIVE); Urine Ketone Negative (NEGATIVE); Urine Nitrite Negative (NEGATIVE); Urine Protein Negative (NEGATIVE); Urine Urobilinogen Normal (NORMAL)
[2020-02-08 11:39] LABS: ALT 13 U/L (19-67); AST 19 U/L (0-48); Albumin * 2.3 gm/dl (3.4-5.0); Alkaline Phosphatase * 70 U/L (50-170); Anion Gap 15.5 mmol/L (6.8-13.8); BNP * 1638 pg/mL (5-650); BUN/Creatinine Ratio 29.6 (9.0-21.6); Bilirubin, Total 0.4 mg/dL (0.0-1.1); Blood Urea Nitrogen 37 mg/dL (6-23); Ca. Corrected For Albumin 9.4 mg/dL (8.4-10.2); Calcium * 8.4 mg/dL (7.9-10.9); Carbon Dioxide 19.5 mmol/L (24-32.6); Chloride 109 mmol/L (97-106); Glucose * 106 mg/dL (70-110); Sodium 139 mmol/L (132-142); Total Protein 5.8 gm/dL (6.2-8.2); Troponin I Less than 0.017 ng/mL (0.00-0.10)
[2020-02-08] MEDS ORDERED: NORMAL SALINE 250 ML IV ONE (11:46)
[2020-02-08 11:53] LABS: Urine Appearance Clear (CLEAR); Urine Bacteria TRACE; Urine Color Yellow; Urine WBC None Seen /hpf (0-5)
--- NOTE | 2020-02-08 12:02 | ERNOTE ---
Dyspnea - Date Date of Service: 02/08/20 - General Presenting Symptoms: shortness of breath Time Seen by Provider: 02/08/20 10:42 Source: patient Exam Limitations: no limitations - Immun/Allergies/Home Medications Immunizations: IMMUNIZATION HX Immunizations Up to Date No History of Influenza Vaccine No Hx Pneumococcal Vaccination No Allergies/Adverse Reactions: Allergies influenza virus vaccine tvs 2412-4595(65 years up) [From Fluad 9629-4039 (65 yr up)(PF)] Allergy (Intermediate, Verified 10/19/19 10:58) Hives vaccine adjuvant emulsion MF59C.1 [From Fluad (65 yr up)(PF)] Allergy (Intermediate, Verified 10/19/19 10:58) Hives carbamazepine [From Tegretol] Allergy (Mild, Verified 10/19/19 10:58) Hives Penicillins Allergy (Mild, Verified 10/19/19 10:58) Hives Home Medications: HOME MEDICATIONS Oxygen 0 .ROUTE .MEDSUPPLY #1 ea 08/02/19 [Last Taken Unknown] azithromycin 250 mg tablet See Rx Instructions PO .COMPLEX #6 tab 02/07/20 [Last Taken Unknown] dexamethasone 6 mg tablet 6 mg PO DAILY #10 tab 02/07/20 [Last Taken Unknown] Acetaminophen [Tylenol] 650 mg PO Q6H 02/08/20 [Last Taken Unknown] Albuterol Sulfate [Albuterol Sulfate 2.5 MG/0.5ML] 1 vial IH Q4H PRN 02/08/20 [Last Taken Unknown] Amiodarone HCl [Cordarone] 200 mg PO DAILY 02/08/20 [Last Taken Unknown] Apixaban [Eliquis] 5 mg PO BID 02/08/20 [Last Taken Unknown] Arginine/Ascorbate Sod/Luna AC [Arginaid Powder] 1 ea PO DAILY 02/08/20 [Last Taken Unknown] Aspirin 325 mg PO DAILY 02/08/20 [Last Taken Unknown] Atorvastatin Calcium 40 mg PO DAILY 02/08/20 [Last Taken Unknown] Bisacodyl [Laxative Suppository] 10 mg RC PRN PRN 02/08/20 [Last Taken Unknown] Ergocalciferol [Calciferol, Vitamin D] 50,000 units PO MÉNDEZ 02/08/20 [Last Taken Unknown] Magnesium Hydroxide [Dulcolax] 400 mg PO Q6H PRN 02/08/20 [Last Taken Unknown] Melatonin 10 mg PO HS 02/08/20 [Last Taken Unknown] Omeprazole 20 mg PO BID 02/08/20 [Last Taken Unknown] Simethicone [Gas Relief] 80 mg PO Q6H PRN 02/08/20 [Last Taken Unknown] - History of Present Illness Narrative: Patient prsents to the ED from the [place] due to Covid positive test and now increased oxygen requirement. He denies CP, feels SOB. He cannot pinpoint when his SOB worsened, gradual. Had home O2 dependent COPD and has been on Dexamethasone at home. No calf pain or DVT Sx. On Eliquis. SOB worse with movement. He feels better since his oxygen has been increased. Severity: moderate Treatment TREASURY CONSULTANT: by patient, paramedics, oxygen Initiating event: Reports: other - COVID Frequency of episodes: Reports: other - Home O2 depended COPD Modifying Factors - (Improves): Reports: oxygen Modifying Factors (Worsens): Reports: activity Associated Symptoms-Dyspnea: Reports: cough. Denies: fever/chills Prior Treatment: Denies: recently hospitalized Review of Systems - Review of Systems Constitutional: Present: fatigue ENT: Absent: sore throat Respiratory: Present: See HPI Cardiology: Absent: chest pain Gastrointestinal/Abdominal: Absent: abdominal pain Neurological: Present: other - no focal weakness All Other Systems: All systems neg except as marked Medical History (Last Reviewed 02/08/20 @ 12:00 by Sancho Muro MD) COPD (chronic obstructive pulmonary disease) (Chronic) GERD (gastroesophageal reflux disease) (Chronic) Onset Date: Unknown Coronary artery disease (Chronic) Onset Date: Unknown Angina pectoris, unspecified (Inactive) Onset Date: Unknown Hyperlipidemia (Chronic) Onset Date: Unknown HTN (hypertension) (Chronic) Onset Date: Unknown CHF (congestive heart failure) (Chronic) Onset Date: 03/13/16 COVID-19 02/02/20 COPD (chronic obstructive pulmonary disease) Onset Date: Unknown Acute respiratory failure with hypoxia Onset Date: Unknown Brain aneurysm Onset Date: Unknown DVT (deep venous thrombosis) Onset Date: Unknown Depression Onset Date: Unknown History of stress test Onset Date: 07/26/02 History of stress test Onset Date: 02/15/99 Kidney calculi Onset Date: Unknown Subdural hemorrhage Onset Date: ~2004 2000, 2004 3 brain aneurysms Negative Colorectal Cancer Screening using Cologuard Onset Date: 01/20/17 Surgical History: Surgical History (Last Reviewed 02/08/20 @ 12:00 by Sancho Muro MD) H/O lithotripsy (Resolved) Onset Date: Unknown History of cholecystectomy (Resolved) Onset Date: ~2006 H/O brain surgery (Resolved) Onset Date: ~2004 x3; brain aneurysm History of cystoscopy Onset Date: 12/05/19 Dr. Alex Smith, [facility]. Flexible cystoscopy with bilateral retrograde pyelograms. Placement of bilateral 5 Hungarian endhole catheters for intraoperative ureteral identification. History of orchiectomy, unilateral Onset Date: 12/05/19 Dr. Dom Cabrales, Dr. Alex Smiht. [facility]. Right radical orchiectomy by inguinal approach. History of right inguinal hernia repair Onset Date: 12/05/19 Dr. Dom Cabrales, Dr. Alex Smith. [facility]. Repair of incarcerated strangulated right inguinal hernia. History of angioplasty Onset Date: ~1997 History of colonoscopy Onset Date: ~2000 History of coronary artery stent placement Onset Date: ~12/2008 Right. History of embolic filter insertion Onset Date: Unknown Family History: Family History (Last Reviewed 02/08/20 @ 12:01 by Sancho Muro MD) Mother Heart disease Brother Heart disease Sister Heart disease Social History: (Last Reviewed 02/08/20 @ 12:01 by Sancho Muro MD) Social History: adopted: No senior care: No Marital status: household members: spouse number of children: 2 current occupational status: retired Service: Yes branch: [employer] status: discharged assignments: [employer] Tobacco: Smoking Status: Former smoker Alcohol: alcohol intake: current Alcohol type: beer alcohol intake frequency: holiday/special occasion Dietary Habits: caffeine: Yes Type: coffee Physical Exam - Physical Exam General Appearance: Present: alert, other - mild tachypnea Head Exam: Present: normal inspection, no evidence of injury Eye Exam: Normal inspection: bilateral, PERRL: bilateral Ears, Nose, Throat: Present: dry mucous membranes Neck: Present: normal inspection Respiratory: Present: chest nontender, other - mild tachypnea, no overt wheezing, diminishged bilaterally Cardiovascular/Chest: Present: regular rate, rhythm Gastrointestinal/Abdominal: Present: normal bowel sounds, nontender, soft Back Exam: Present: no CVA tenderness Extremity Exam: Present: other - No DVT findings Neurological Exam: Present: alert, other - no acute unilateral focal motor or sensory deficits Skin Exam: Present: normal color, warm/dry, pallor Progress - Results and Orders Patient's Lab Results:: I have reviewed the patient's lab results. - Vital Signs Patient's Vital Signs:: I have reviewed the patient's vital signs. Vital Signs: Vital Signs 02/08/20 10:00 02/08/20 10:11 02/08/20 10:41 Temperature 36.6 C 36.6 C 36.6 C Pulse Rate 69 69 67 Respiratory Rate 30 H 30 H 30 H Blood Pressure 96/36 96/36 90/37 O2 Sat by Pulse Oximetry 96 96 96 02/08/20 11:11 02/08/20 11:26 02/08/20 11:29 Temperature 36.9 C 36.9 C Pulse Rate 66 66 66 Respiratory Rate 25 H 22 H 20 Blood Pressure 97/40 102/45 O2 Sat by Pulse Oximetry 96 93 93 02/08/20 11:36 Temperature Pulse Rate 66 Respiratory Rate 20 Blood Pressure O2 Sat by Pulse Oximetry - EKG EKG #1 EKG: NSR EKG read: Interp. by me EKG Comments: NSR rate 68. Non-specific ST/T wave changes, no STEMI - X-Ray X-Ray #1 X-Ray: chest Interpretation: Interp. by me X-ray Comments: I personally reviewed the CXR image as well as the official radiology report - Progress/Reassessment Chief Complaint: Dyspnea Progress Note-Subjective: 02/08/20 11:55 Patient has significant new anemia, transfusion ordered. Covid pneumonia with i ncrasing oxygen requirement. Hypotesion, mild resolved with 250ml bolus, would hold further on that at this time given his elevated BNP. On Eliquis, d-dimer elevated but obtained d/t the covid, no CT indicated. I spoke with Dr Whaley who will admit the patient. Departure Clinical Impression: Pneumonia due to COVID-19 virus, Hypoxia, Anemia - Departure Disposition: Home self-care Condition: Fair Referrals: Maix Whaley DO [Primary Care Provider] -
[2020-02-08] MEDS ORDERED: MAGNESIUM HYDROXIDE 30 ML UDC PO PRN (16:44)
[2020-02-08] MEDS ORDERED: SIMETHICONE 80 MG TAB.CHEW PO PRN (16:44)
[2020-02-08] MEDS ORDERED: BISACODYL 10 MG SUPP.RECT RC PRN (16:44)
--- NOTE | 2020-02-08 16:57 | HP ---
Chief Complaint - Chief Complaint Date of Service: 02/08/20 Time of Service: 16:52 Chief Complaint: Shortness of breath History of Present Illness: Horace is a 80 yo male, a resident at [facility]. He has Chronic respiratory failure and is on 2lpm continuous due to COPD. On 02/01/2020 he was diagnosed with COVID-19 with a rapid test done at the [facility]. He was started on azithromycin and dexamethasone at the [facility]. Over the last few days he has been having to increase up his oxygen to 4lpm and will sometimes still drop to the 80s. He was complaining for shortness of breath, lightheadedness, and fatigue. He was sent to the [facility] ER today due to continued oxygen desaturation despite being on 4lpm and worsening symptoms. Medical History (Last Reviewed 02/08/20 @ 13:01 by Aftab Reilly RN) COPD (chronic obstructive pulmonary disease) (Chronic) GERD (gastroesophageal reflux disease) (Chronic) Onset Date: Unknown Coronary artery disease (Chronic) Onset Date: Unknown Angina pectoris, unspecified (Inactive) Onset Date: Unknown Hyperlipidemia (Chronic) Onset Date: Unknown HTN (hypertension) (Chronic) Onset Date: Unknown CHF (congestive heart failure) (Chronic) Onset Date: 03/13/16 COVID-19 02/02/20 COPD (chronic obstructive pulmonary disease) Onset Date: Unknown Acute respiratory failure with hypoxia Onset Date: Unknown Brain aneurysm Onset Date: Unknown DVT (deep venous thrombosis) Onset Date: Unknown Depression Onset Date: Unknown History of stress test Onset Date: 07/26/02 History of stress test Onset Date: 02/15/99 Kidney calculi Onset Date: Unknown Subdural hemorrhage Onset Date: ~2004 2000, 2004 3 brain aneurysms Negative Colorectal Cancer Screening using Cologuard Onset Date: 01/20/17 Surgical History: Surgical History (Last Reviewed 02/08/20 @ 13:02 by Aftab Reilly RN) H/O lithotripsy (Resolved) Onset Date: Unknown History of cholecystectomy (Resolved) Onset Date: ~2006 H/O brain surgery (Resolved) Onset Date: ~2004 x3; brain aneurysm History of cystoscopy Onset Date: 12/05/19 Dr. Alex Smith, [facility]. Flexible cystoscopy with bilateral retrograde pyelograms. Placement of bilateral 5 Vietnamese endhole catheters for intraoperative ureteral identification. History of orchiectomy, unilateral Onset Date: 12/05/19 Dr. Dom Cabrales, Dr. Alex Smith. [facility]. Right radical orchiectomy by inguinal approach. History of right inguinal hernia repair Onset Date: 12/05/19 Dr. Dom Cabrales, Dr. Alex Smith. [facility]. Repair of incar cerated strangulated right inguinal hernia. History of angioplasty Onset Date: ~1997 History of colonoscopy Onset Date: ~2000 History of coronary artery stent placement Onset Date: ~12/2008 Right. History of embolic filter insertion Onset Date: Unknown Family History: Family History (Last Reviewed 02/08/20 @ 13:02 by Aftab Reilly RN) Mother Heart disease Brother Heart disease Sister Heart disease Social History: (Last Reviewed 02/08/20 @ 13:02 by Aftab Reilly RN) Social History: adopted: No f[facility]: No Marital status: household members: spouse number of children: 2 current occupational status: retired Service: Yes branch: [employer] status: discharged assignments: [employer] Tobacco: Smoking Status: Former smoker Alcohol: alcohol intake: current Alcohol type: beer alcohol intake frequency: holiday/special occasion Dietary Habits: caffeine: Yes Type: coffee Review Of Systems (GEN) - Review of Systems Generalized/Overall Review: Present: Weakness, Fatigue. Absent: Chills, Fever EENTM: Present: No Symptoms Reported Respiratory: Present: Cough, Shortness of Breath Cardiac: Absent: Chest Pain, Edema Abdominal: Absent: Nausea, Vomiting Genitourinary: Absent: Burning, Frequency Musculoskeletal: Present: No Symptoms Reported Neurological: Present: No Symptoms Reported Skin: Present: No Symptoms Reported Endocrine: Present: No Symptoms Reported Immunizations: IMMUNIZATION HX Immunizations Up to Date No History of Influenza Vaccine No Hx Pneumococcal Vaccination No Allergies/Adverse Reactions: Allergies Allergy/AdvReac Type Severity Reaction Status Date / Time influenza virus vaccine tvs Allergy Intermediate Hives Verified 02/08/20 13:03 [id number](65 years up) [From Fluad (65 yr up)(PF)] vaccine adjuvant emulsion Allergy Intermediate Hives Verified 02/08/20 13:03 [id number] [From Fluad [id number] (65 yr up)(PF)] carbamazepine [From Tegretol] Allergy Mild Hives Verified 02/08/20 13:03 Penicillins Allergy Mild Hives Verified 02/08/20 13:03 Home Medications: HOME MEDICATIONS Oxygen 0 .ROUTE .MEDSUPPLY #1 ea 08/02/19 [Last Taken Unknown] azithromycin 250 mg tablet See Rx Instructions PO .COMPLEX #6 tab 02/07/20 [Last Taken Unknown] dexamethasone 6 mg tablet 6 mg PO DAILY #10 tab 02/07/20 [Last Taken Unknown] Acetaminophen [Tylenol] 650 mg PO Q6H PRN 02/08/20 [Last Taken Unknown] Albuterol Sulfate [Albuterol Sulfate 2.5 MG/0.5ML] 1 vial IH Q4H PRN 02/08/20 [Last Taken Unknown] Amiodarone HCl [Cordarone] 200 mg PO DAILY 02/08/20 [Last Taken Unknown] Apixaban [Eliquis] 5 mg PO BID 02/08/20 [Last Taken Unknown] Arginine/Ascorbate Sod/Luna AC [Arginaid Powder] 1 ea PO DAILY 02/08/20 [Last Taken Unknown] Aspirin 325 mg PO DAILY 02/08/20 [Last Taken Unknown] Atorvastatin Calcium 40 mg PO HS 02/08/20 [Last Taken Unknown] Bisacodyl [Laxative Suppository] 10 mg RC PRN PRN 02/08/20 [Last Taken Unknown] Ergocalciferol [Calciferol, Vitamin D] 50,000 units PO MÉNDEZ 02/08/20 [Last Taken Unknown] Magnesium Hydroxide [Dulcolax] 400 mg PO Q6H PRN 02/08/20 [Last Taken Unknown] Melatonin 10 mg PO HS 02/08/20 [Last Taken Unknown] Omeprazole 20 mg PO BID 02/08/20 [Last Taken Unknown] Simethicone [Gas Relief] 80 mg PO Q6H PRN 02/08/20 [Last Taken Unknown] Exam - Exam Vital Signs: Vital Signs - Last Taken Temp 36.2 C 02/08/20 13:03 Pulse 66 02/08/20 13:03 Resp 18 02/08/20 13:03 BP 102/46 02/08/20 13:03 Pulse Ox 92 L 02/08/20 13:03 Constitutional: Present: Alert, Oriented x3, Cooperative ENT Exam: Present: hard of hearing Eye Exam: bilateral eye: normal inspection Respiratory: Present: decreased breath sounds Cardiovascular/Chest: Present: regular rate, rhythm, no edema, no murmur Peripheral Pulses: radial (R): 2+, radial (L): 2+ Abdomen: Present: Normal bowel sounds, soft, nontender, nondistended, no rebound tenderness Skin Exam: Present: normal color, warm/dry, no cyanosis Lymphatic: Present: no adenopathy Appearance: Present: appropriate appearance, appropriate insight Eye contact: Present: cooperative, good eye contact, normal speech Diagnostic Studies: Abnormal Lab Results 02/08/20 02/08/20 02/08/20 Range/Units 11:04 11:04 11:04 RBC 2.97 L (4.7-6.0) M/mm3 Hgb 7.1 L* D (13.5-18.0) gm/dL Hct 24.2 L (42.0-52.0) % MCH 23.9 L (27-31) pg MCHC 29.3 L (32-36) g/dl RDW 19.4 H (11.5-14.0) % Lymphocytes % 19.6 L (20-51) % Lymphocytes # 0.89 L (1.5-3.5) k/mm3 D-Dimer 0.96 H (0.19-0.49) ug/mL pCO2 (35.0-48.0) mmHg pO2 (83.0-108.0) mmHg HCO3 (21.0-28.0) mmol/L Total CO2 (19.0-24.0) mmol/L Base Excess (-2.0-3.0) mmol/L ABG O2 Sat (Measured) (94.0-98.0) % Potassium 5.0 H D (3.4-4.6) mmol/L Chloride 109 H (97-106) mmol/L Carbon Dioxide 19.5 L (24-32.6) mmol/L Anion Gap 15.5 H (6.8-13.8) mmol/L BUN 37 H D (6-23) mg/dL Est GFR (Non-Af Amer) 59 L (60-130) mL/min BUN/Creatinine Ratio 29.6 H (9.0-21.6) ALT 13 L (19-67) U/L B-Natriuretic Peptide 1638 H (5-650) pg/mL Total Protein 5.8 L (6.2-8.2) gm/dL Albumin 2.3 L (3.4-5.0) gm/dl Urine Blood (NEGATIVE) /ul Urine RBC (0-5) /hpf Crossmatch 02/08/20 02/08/20 02/08/20 Range/Units 11:05 11:27 12:04 RBC (4.7-6.0) M/mm3 Hgb (13.5-18.0) gm/dL Hct (42.0-52.0) % MCH (27-31) pg MCHC (32-36) g/dl RDW (11.5-14.0) % Lymphocytes % (20-51) % Lymphocytes # (1.5-3.5) k/mm3 D-Dimer (0.19-0.49) ug/mL pCO2 24.4 L (35.0-48.0) mmHg pO2 52.8 L (83.0-108.0) mmHg HCO3 15.9 L (21.0-28.0) mmol/L Total CO2 16.6 L (19.0-24.0) mmol/L Base Excess -7.5 L (-2.0-3.0) mmol/L ABG O2 Sat (Measured) 89.1 L (94.0-98.0) % Potassium (3.4-4.6) mmol/L Chloride (97-106) mmol/L Carbon Dioxide (24-32.6) mmol/L Anion Gap (6.8-13.8) mmol/L BUN (6-23) mg/dL Est GFR (Non-Af Amer) (60-130) mL/min BUN/Creatinine Ratio (9.0-21.6) ALT (19-67) U/L B-Natriuretic Peptide (5-650) pg/mL Total Protein (6.2-8.2) gm/dL Albumin (3.4-5.0) gm/dl Urine Blood 50 H (NEGATIVE) /ul Urine RBC 10-25 H (0-5) /hpf Crossmatch See Detail Laboratory Results WBC 4.6 K/mm3 (4.0-10.5) 02/08/20 11:04 RBC 2.97 M/mm3 (4.7-6.0) L 02/08/20 11:04 Hgb 7.1 gm/dL (13.5-18.0) L* D 02/08/20 11:04 Hct 24.2 % (42.0-52.0) L 02/08/20 11:04 MCV 81.5 fl (78-100) 02/08/20 11:04 MCH 23.9 pg (27-31) L 02/08/20 11:04 MCHC 29.3 g/dl (32-36) L 02/08/20 11:04 RDW 19.4 % (11.5-14.0) H 02/08/20 11:04 Plt Count 212 K/mm3 (150-450) 02/08/20 11:04 MPV 9.7 fl (8-11.3) 02/08/20 11:04 Immature Gran % (Auto) 0.40 % (0.001-0.429) 02/08/20 11:04 Immature Gran # (Auto) 0.02 K/mm3 (0.000-0.0310) 02/08/20 11:04 Neutrophils % 71.9 % (42-75.0) 02/08/20 11:04 Lymphocytes % 19.6 % (20-51) L 02/08/20 11:04 Monocytes % 7.9 % (0.0-9) 02/08/20 11:04 Eosinophils % 0.0 % (0.0-3.0) 02/08/20 11:04 Basophils % 0.2 % (0.0-1.0) 02/08/20 11:04 Nucleated RBC % 0.0 k/mm3 (0-1) 02/08/20 11:04 Neutrophils # 3.3 K/mm3 (1.3-6.0) 02/08/20 11:04 Lymphocytes # 0.89 k/mm3 (1.5-3.5) L 02/08/20 11:04 Monocytes # 0.4 k/mm3 (0.0-1.0) 02/08/20 11:04 Eosinophils # 0.0 k/mm3 (0.0-0.7) 02/08/20 11:04 Absolute Basophils 0.0 k/mm3 (0.0-0.1) 02/08/20 11:04 D-Dimer 0.96 ug/mL (0.19-0.49) H 02/08/20 11:04 pCO2 24.4 mmHg (35.0-48.0) L 02/08/20 11:05 pO2 52.8 mmHg (83.0-108.0) L 02/08/20 11:05 HCO3 15.9 mmol/L (21.0-28.0) L 02/08/20 11:05 Total CO2 16.6 mmol/L (19.0-24.0) L 02/08/20 11:05 Base Excess -7.5 mmol/L (-2.0-3.0) L 02/08/20 11:05 ABG pH 7.43 (7.35-7.45) 02/08/20 11:05 ABG O2 Sat (Measured) 89.1 % (94.0-98.0) L 02/08/20 11:05 Sodium 139 mmol/L (132-142) 02/08/20 11:04 Plasma Sodium 139 mmol/L (130-142) 02/08/20 11:04 Potassium 5.0 mmol/L (3.4-4.6) H D 02/08/20 11:04 Chloride 109 mmol/L (97-106) H 02/08/20 11:04 Carbon Dioxide 19.5 mmol/L (24-32.6) L 02/08/20 11:04 Anion Gap 15.5 mmol/L (6.8-13.8) H 02/08/20 11:04 BUN 37 mg/dL (6-23) H D 02/08/20 11:04 Creatinine 1.25 mg/dL (0.4-1.4) 02/08/20 11:04 Est GFR (Non-Af Amer) 59 mL/min (60-130) L 02/08/20 11:04 BUN/Creatinine Ratio 29.6 (9.0-21.6) H 02/08/20 11:04 Random Glucose 106 mg/dL (70-110) 02/08/20 11:04 Lactic Acid, Venous 1.9 mmol/L (0.4-2.0) 02/08/20 11:04 Calcium 8.4 mg/dL (7.9-10.9) 02/08/20 11:04 Calcium Adj for Albumin 9.4 mg/dL (8.4-10.2) 02/08/20 11:04 Total Bilirubin 0.4 mg/dL (0.0-1.1) 02/08/20 11:04 AST 19 U/L (0-48) 02/08/20 11:04 ALT 13 U/L (19-67) L 02/08/20 11:04 Alkaline Phosphatase 70 U/L (50-170) 02/08/20 11:04 Troponin I Less than 0.017 ng/mL (0.00-0.10) 02/08/20 11:04 B-Natriuretic Peptide 1638 pg/mL (5-650) H 02/08/20 11:04 Total Protein 5.8 gm/dL (6.2-8.2) L 02/08/20 11:04 Albumin 2.3 gm/dl (3.4-5.0) L 02/08/20 11:04 Procalcitonin 0.08 ng/mL (0.05-0.50) 02/08/20 11:04 Urine Color Yellow 02/08/20 11:27 Urine Appearance Clear (CLEAR) 02/08/20 11:27 Urine pH 5.0 pH (5.0-7.0) 02/08/20 11:27 Ur Specific [place] 1.020 SP.GR. (1.005-1.030) 02/08/20 11:27 Urine Protein Negative mg/dL (NEGATIVE) 02/08/20 11:27 Urine Glucose (UA) Negative mg/dL (NEGATIVE) 02/08/20 11:27 Urine Ketones Negative mg/dL (NEGATIVE) 02/08/20 11:27 Urine Blood 50 /ul (NEGATIVE) H 02/08/20 11:27 Urine Nitrate Negative (NEGATIVE) 02/08/20 11:27 Urine Bilirubin Negative mg/dl (NEGATIVE) 02/08/20 11:27 Urine Urobilinogen Normal EU/dl (NORMAL) 02/08/20 11:27 Ur Leukocyte Esterase Negative /ul (NEGATIVE) 02/08/20 11:27 Urine RBC 10-25 /hpf (0-5) H 02/08/20 11:27 Urine WBC None seen /hpf (0-5) 02/08/20 11:27 Ur Epithelial Cells None seen /hpf (0-5) 02/08/20 11:27 Urine Bacteria Trace (NONE) 02/08/20 11:27 Urine Culture Comments Culture to follow 02/08/20 11:27 Blood Type B Negative 02/08/20 12:04 Antibody Screen Positive 02/08/20 12:04 Crossmatch See Detail 02/08/20 12:04 Assessment/Plan - Narrative Narrative: Horace is a 80 yo male with Acute on chronic respiratory failure secondary to COVID-19 pneumonia. He will be continued on azithromycin and dexamethasone. Will monitor oxygen needs. At this time he is actually only needing 2lpm vis oxy mask, but reports are that he was desating on 4lpm via NC. Will admit to observation. His hgb is 7.1 which is likely anemia of chronic disease as he has been gradually trending down over the past year and has not had any bleeding. He will be transfused 1 unit due to his history of CHF, CAD, and respiratory failure. This will help with his oxygenation. Will check anemia studies. If he is having desaturation and requiring more than his baseline level of oxygen will admit to inpatient and treat with Veklury. - Assessment/Plan (1) Acute and chronic respiratory failure with hypoxia Problem: Acute (2) Pneumonia due to COVID-19 virus Problem: Acute (3) Chronic diastolic CHF (congestive heart failure) Problem: Chronic (4) COPD (chronic obstructive pulmonary disease) Problem: Chronic Qualifiers: COPD type: unspecified COPD Qualified Code(s): J44.9 - Chronic obstructive pulmonary disease, unspecified (5) Anemia of chronic disease Problem: Chronic
[2020-02-08] MEDS: ACETAMINOPHEN 325 MG TABLET PO SCH ×2 (17:29→21:52)
[2020-02-08] MEDS: FERROUS SULFATE 325 MG TABLET PO SCH (17:29)
[2020-02-08] MEDS: ROSUVASTATIN CALCIUM 20 MG TABLET PO SCH (21:52)
[2020-02-08] MEDS: APIXABAN 5 MG TABLET PO SCH (21:52)
[2020-02-08] MEDS: PANTOPRAZOLE SODIUM 20 MG TABLET.DR PO SCH (21:53)
[2020-02-08] MEDS: MELATONIN 3,000 MCG TABLET PO SCH (21:53)
[2020-02-09] MEDS: ACETAMINOPHEN 325 MG TABLET PO SCH ×5 (04:29→21:44)
[2020-02-09 06:39] LABS: Iron 11 mcg/dL (35-120); Transferrin Sat. (% Sat.) 5 % (15-55)
[2020-02-09 06:49] LABS: Hematocrit 24.8 % (42.0-52.0); Mean Cell Volume 81.6 fl (78-100); Mean Corpuscular Hemoglobin 23.7 pg (27-31); Mean Platelet Volume 9.6 fl (8-11.3); Neutrophil # 2.7 K/mm3 (1.3-6.0); Platelet Count 229 K/mm3 (150-450); Red Blood Count 3.04 M/mm3 (4.7-6.0); Red Cell Distribution Width 19.3 % (11.5-14.0); White Blood Count 3.9 K/mm3 (4.0-10.5)
[2020-02-09 07:04] LABS: Albumin * 2.2 gm/dl (3.4-5.0); Anion Gap 12.9 mmol/L (6.8-13.8); BUN/Creatinine Ratio 37.8 (9.0-21.6); Bilirubin, Total 0.4 mg/dL (0.0-1.1); Ca. Corrected For Albumin 9.8 mg/dL (8.4-10.2); Calcium * 8.7 mg/dL (7.9-10.9); Potassium 4.9 mmol/L (3.4-4.6); Total Protein 5.7 gm/dL (6.2-8.2)
[2020-02-09] MEDS: PANTOPRAZOLE SODIUM 20 MG TABLET.DR PO SCH ×2 (07:27→21:42)
[2020-02-09 07:48] LABS: Hemoglobin 7.2 gm/dL (13.5-18.0)
[2020-02-09] MEDS ORDERED: REMDESIVIR 200 MG in NORMAL SALINE 210 ML IV ONE (07:55)
[2020-02-09] MEDS: AZITHROMYCIN 250 MG TABLET PO SCH (10:01)
[2020-02-09] MEDS: ASPIRIN 325 MG TABLET.DR PO SCH (10:01)
[2020-02-09] MEDS: APIXABAN 5 MG TABLET PO SCH ×2 (10:02→21:43)
[2020-02-09] MEDS: FERROUS SULFATE 325 MG TABLET PO SCH ×2 (10:02→16:45)
[2020-02-09] MEDS: CYANOCOBALAMIN 1,000 MCG TABLET PO SCH (10:02)
[2020-02-09] MEDS: AMIODARONE HCL 200 MG TABLET PO SCH (10:02)
[2020-02-09] MEDS: DEXAMETHASONE 2 MG TABLET PO SCH (10:03)
--- NOTE | 2020-02-09 16:07 | ANES ---
Anesthesia Procedure Note Procedure Note: ANESTHESIA PROCEDURE NOTE Date of Procedure: 02/09/2020 Time of procedure: 1540. Performed by: JANNETTE Shelby CRNA, MSN Preprocedure diagnosis: Anemia, lack of venous access, Covid positive. Post procedure diagnosis: Same. Procedure: Venipuncture for IV access. Indications: Anemia and lack of IV access. Findings: See below. Details of the procedure: The patient was prepped with Betadine and alcohol, 0.1 mL of 1% lidocaine solution was injected at the intended IV site. The left external jugular vein was cannulated with a #18 gauge IV catheter. The catheter was flushed with ease and secured in place. The positioning and securing of the IV was reported to the RN for Mr. Schmitz. EBL: Minimal. Fluids: N/A. Specimen: N/A. Post procedure condition: The patient tolerated the procedure well. No complications were noted. Thank you for this consultation. Jd Marmolejo CRNA, ARNP, MSN
--- NOTE | 2020-02-09 19:48 | PN ---
Subjective - Date and Time Seen Date: 02/09/20 Time: 16:00 Subjective Narrative: Horace reports right forearm bruised, swollen, and tender after his blood transfusion infiltrated. He denies shortness of breath, but is currently on 5lpm, just recently titrated down from 6lpm. He denies fever, chills, nausea, or vomiting. Objective - Vitals Vitals: Last Vital Signs Temp 36.1 C 02/09/20 18:14 Pulse 68 02/09/20 18:14 Resp 28 H 02/09/20 18:14 BP 130/65 02/09/20 18:14 Pulse Ox 90 L 02/09/20 18:14 - Abnormal Lab Findings Abnormal Lab Findings: Abnormal Lab Results 02/08/20 02/09/20 02/09/20 Range/Units 12:04 06:18 06:18 WBC 3.9 L (4.0-10.5) K/mm3 RBC 3.04 L (4.7-6.0) M/mm3 Hgb 7.2 L* (13.5-18.0) gm/dL Hct 24.8 L (42.0-52.0) % MCH 23.7 L (27-31) pg MCHC 29.0 L (32-36) g/dl RDW 19.3 H (11.5-14.0) % Immature Gran % (Auto) 1.00 H (0.001-0.429) % Immature Gran # (Auto) 0.04 H (0.000-0.0310) K/mm3 Lymphocytes % 19.7 L (20-51) % Monocytes % 11.3 H (0.0-9) % Lymphocytes # 0.77 L (1.5-3.5) k/mm3 Potassium 4.9 H (3.4-4.6) mmol/L Chloride 109 H (97-106) mmol/L Carbon Dioxide 22.0 L (24-32.6) mmol/L BUN 37 H (6-23) mg/dL BUN/Creatinine Ratio 37.8 H (9.0-21.6) Random Glucose 111 H (70-110) mg/dL Iron (35-120) mcg/dL TIBC (260-445) mcg/dL Transferrin % Sat (15-55) % ALT 11 L (19-67) U/L Total Protein 5.7 L (6.2-8.2) gm/dL Albumin 2.2 L (3.4-5.0) gm/dl SARS-CoV-2 (PCR) (NotDetected) Crossmatch See Detail 02/09/20 02/09/20 Range/Units 06:18 10:10 WBC (4.0-10.5) K/mm3 RBC (4.7-6.0) M/mm3 Hgb (13.5-18.0) gm/dL Hct (42.0-52.0) % MCH (27-31) pg MCHC (32-36) g/dl RDW (11.5-14.0) % Immature Gran % (Auto) (0.001-0.429) % Immature Gran # (Auto) (0.000-0.0310) K/mm3 Lymphocytes % (20-51) % Monocytes % (0.0-9) % Lymphocytes # (1.5-3.5) k/mm3 Potassium (3.4-4.6) mmol/L Chloride (97-106) mmol/L Carbon Dioxide (24-32.6) mmol/L BUN (6-23) mg/dL BUN/Creatinine Ratio (9.0-21.6) Random Glucose (70-110) mg/dL Iron 11 L (35-120) mcg/dL TIBC 239 L (260-445) mcg/dL Transferrin % Sat 5 L (15-55) % ALT (19-67) U/L Total Protein (6.2-8.2) gm/dL Albumin (3.4-5.0) gm/dl SARS-CoV-2 (PCR) Detected H (NotDetected) Crossmatch - Exam Constitutional: Present: Alert, Oriented x3, Cooperative, No distress ENT Exam: Present: hard of hearing Respiratory: Present: lungs clear, decreased breath sounds Cardiovascular/Chest: Present: regular rate, rhythm, no edema Abdomen: Present: Normal bowel sounds, soft, nontender, nondistended Skin Exam: Present: normal color, warm/dry, no cyanosis Eye contact: Present: cooperative, good eye contact, normal speech Thoughts: Present: normal thought pattern, no apparent hallucination Assessment/Plan Plan Narrative: Horace is feeling ok today. He was changed to inpatient this morning when his oxygen requirement went up to 6 liters, above his baseline of 2lpm. He was started on Veklury. Due to antibodies in his blood his transfusion was not started until this morning. He was weaned to 5lpm this afternoon, will continue to wean oxygen back to his baseline. - Problems/Diagnosis (1) Acute and chronic respiratory failure with hypoxia Problem: Acute (2) Pneumonia due to COVID-19 virus Problem: Acute (3) Chronic diastolic CHF (congestive heart failure) Problem: Chronic (4) COPD (chronic obstructive pulmonary disease) Problem: Chronic Qualifiers: COPD type: unspecified COPD Qualified Code(s): J44.9 - Chronic obstructive pulmonary disease, unspecified (5) Anemia of chronic disease Problem: Chronic
[2020-02-09] MEDS: ROSUVASTATIN CALCIUM 20 MG TABLET PO SCH (21:42)
[2020-02-09] MEDS: MELATONIN 3,000 MCG TABLET PO SCH (21:43)
[2020-02-10] MEDS: ACETAMINOPHEN 325 MG TABLET PO SCH ×4 (04:47→22:30)
[2020-02-10] MEDS: PANTOPRAZOLE SODIUM 20 MG TABLET.DR PO SCH ×2 (06:59→21:31)
[2020-02-10 08:11] LABS: Albumin * 2.2 gm/dl (3.4-5.0); Anion Gap 12.6 mmol/L (6.8-13.8); BUN/Creatinine Ratio 40.2 (9.0-21.6); Bilirubin, Total 0.4 mg/dL (0.0-1.1); Ca. Corrected For Albumin 9.2 mg/dL (8.4-10.2); Calcium * 8.1 mg/dL (7.9-10.9); Carbon Dioxide 21.1 mmol/L (24-32.6); Potassium 4.7 mmol/L (3.4-4.6); Total Protein 5.2 gm/dL (6.2-8.2)
[2020-02-10] MEDS: DEXAMETHASONE 2 MG TABLET PO SCH (08:27)
[2020-02-10] MEDS: AZITHROMYCIN 250 MG TABLET PO SCH (08:27)
[2020-02-10] MEDS: AMIODARONE HCL 200 MG TABLET PO SCH (08:27)
[2020-02-10] MEDS: ASPIRIN 325 MG TABLET.DR PO SCH (08:27)
[2020-02-10] MEDS: FERROUS SULFATE 325 MG TABLET PO SCH ×2 (08:27→17:11)
[2020-02-10] MEDS: CYANOCOBALAMIN 1,000 MCG TABLET PO SCH (08:27)
[2020-02-10] MEDS: APIXABAN 5 MG TABLET PO SCH ×2 (08:27→21:31)
--- NOTE | 2020-02-10 11:02 | ANES ---
Anesthesia Procedure Note Procedure Note: ANESTHESIA PROCEDURE NOTE Date of Procedure: 02/10/2020 Time of procedure: 9:30 AM. Performed by: JANNETTE Shelby CRNA, MSN Preprocedure diagnosis: Covid positive, lack of venous access. Post procedure diagnosis: Same. Procedure: Venipuncture for IV access. Indications: Lack of venous access, requires Covid 19 treatment. Findings: After originally planning a PICC line, only 1 potential vein in the left brachial region was noted. The arm was prepped and draped but I was unable to cannulate the apparent vein. After doing thorough assessment of the rest of his body, very little venous access appeared to be possible. Eventually the left foot was deemed the most possible, albeit a very tiny vein. Details of the procedure: The patient was prepped with Betadine and alcohol, 0.1 mL of 1% lidocaine solution was injected at the intended IV site. A number 24- gauge IV was initiated, flushed and secured. Report was given to the attending RN. EBL: Minimal. Fluids: N/A. Specimen: N/A. Post procedure condition: The patient tolerated the procedure well. No complications were noted. Thank you for this consultation. Jd Marmolejo CRNA, ARNP, MSN
[2020-02-10] MEDS: REMDESIVIR 100 MG in NORMAL SALINE 230 ML IV SCH (11:08)
[2020-02-10 12:58] LABS: Hematocrit 26.3 % (42.0-52.0); Mean Cell Volume 81.9 fl (78-100); Mean Corpuscular Hemoglobin 24.3 pg (27-31); Mean Corpuscular Hgb Conc 29.7 g/dl (32-36); Mean Platelet Volume 9.7 fl (8-11.3); Neutrophil # 5.7 K/mm3 (1.3-6.0); Neutrophil % 76.9 % (42-75.0); Platelet Count 271 K/mm3 (150-450); Red Blood Count 3.21 M/mm3 (4.7-6.0); Red Cell Distribution Width 18.8 % (11.5-14.0); White Blood Count 7.4 K/mm3 (4.0-10.5)
[2020-02-10 13:10] LABS: Hemoglobin 7.8 gm/dL (13.5-18.0)
[2020-02-10] MEDS: MELATONIN 3,000 MCG TABLET PO SCH (21:31)
[2020-02-10] MEDS: ROSUVASTATIN CALCIUM 20 MG TABLET PO SCH (21:31)
--- NOTE | 2020-02-10 23:25 | PN ---
Subjective - Date and Time Seen Date: 02/10/20 Time: 12:10 Subjective Narrative: Horace reports feeling "with his hands". He feels ok today, his right forearm hematoma from IV infiltration of blood transfusion is smaller and less sore. He reports breathing ok. He is down to 4lpm on NC. No fever, chills, nausea, or vomiting. Objective - Vitals Vitals: Last Vital Signs Temp 37.2 C 02/10/20 22:44 Pulse 53 L 02/10/20 22:44 Resp 19 02/10/20 22:44 BP 115/60 02/10/20 22:44 Pulse Ox 95 02/10/20 22:44 - Abnormal Lab Findings Abnormal Lab Findings: Abnormal Lab Results 02/10/20 02/10/20 Range/Units 07:40 07:40 RBC 3.21 L (4.7-6.0) M/mm3 Hgb 7.8 L* (13.5-18.0) gm/dL Hct 26.3 L (42.0-52.0) % MCH 24.3 L (27-31) pg MCHC 29.7 L (32-36) g/dl RDW 18.8 H (11.5-14.0) % Immature Gran % (Auto) 0.50 H (0.001-0.429) % Immature Gran # (Auto) 0.04 H (0.000-0.0310) K/mm3 Neutrophils % 76.9 H (42-75.0) % Lymphocytes % 14.4 L (20-51) % Lymphocytes # 1.07 L (1.5-3.5) k/mm3 Potassium 4.7 H (3.4-4.6) mmol/L Chloride 110 H (97-106) mmol/L Carbon Dioxide 21.1 L (24-32.6) mmol/L BUN 35 H (6-23) mg/dL BUN/Creatinine Ratio 40.2 H (9.0-21.6) ALT 11 L (19-67) U/L Total Protein 5.2 L (6.2-8.2) gm/dL Albumin 2.2 L (3.4-5.0) gm/dl - Exam Constitutional: Present: Alert, Oriented x3, Cooperative, No distress Respiratory: Present: lungs clear, no respiratory distress Cardiovascular/Chest: Present: regular rate, rhythm, no edema, no murmur Abdomen: Present: Normal bowel sounds, soft, nontender, nondistended Skin Exam: Present: other - right forearm hematoma less raised than yesterday and less tender Assessment/Plan Plan Narrative: COVID pneumonia appears to be stable. Down to 4lpm on oxygen today. His baseline is 2lpm continuous at [facility]. Will continue treatment and attempt to wean. Hgb 7.8 today after transfusion yesterday, part of which infiltrated. Anemia is from chornic disase and would only transfuse again if nearing below 7. Shooting to discharge in 3-4 days. - Problems/Diagnosis (1) Acute and chronic respiratory failure with hypoxia Problem: Acute (2) Pneumonia due to COVID-19 virus Problem: Acute (3) Chronic diastolic CHF (congestive heart failure) Problem: Chronic (4) COPD (chronic obstructive pulmonary disease) Problem: Chronic Qualifiers: COPD type: unspecified COPD Qualified Code(s): J44.9 - Chronic obstructive pulmonary disease, unspecified (5) Anemia of chronic disease Problem: Chronic
[2020-02-11] MEDS: ACETAMINOPHEN 325 MG TABLET PO SCH ×4 (04:13→22:21)
[2020-02-11 05:27] LABS: Hematocrit 24.7 % (42.0-52.0); Mean Cell Volume 82.1 fl (78-100); Mean Corpuscular Hemoglobin 24.6 pg (27-31); Mean Platelet Volume 9.5 fl (8-11.3); Neutrophil % 71.3 % (42-75.0); Platelet Count 259 K/mm3 (150-450); Red Blood Count 3.01 M/mm3 (4.7-6.0); Red Cell Distribution Width 18.9 % (11.5-14.0)
[2020-02-11 05:40] LABS: Anion Gap 9.8 mmol/L (6.8-13.8); Bilirubin, Total 0.4 mg/dL (0.0-1.1); Ca. Corrected For Albumin 9.4 mg/dL (8.4-10.2); Calcium * 8.1 mg/dL (7.9-10.9); Carbon Dioxide 22.8 mmol/L (24-32.6); Hemoglobin 7.4 gm/dL (13.5-18.0); Potassium 4.6 mmol/L (3.4-4.6); Total Protein 5.2 gm/dL (6.2-8.2)
[2020-02-11] MEDS: PANTOPRAZOLE SODIUM 20 MG TABLET.DR PO SCH ×2 (06:39→20:11)
[2020-02-11] MEDS: REMDESIVIR 100 MG in NORMAL SALINE 230 ML IV SCH (08:40)
[2020-02-11] MEDS: ASPIRIN 325 MG TABLET.DR PO SCH (08:41)
[2020-02-11] MEDS: AMIODARONE HCL 200 MG TABLET PO SCH (08:41)
[2020-02-11] MEDS: APIXABAN 5 MG TABLET PO SCH ×2 (08:41→20:12)
[2020-02-11] MEDS: CYANOCOBALAMIN 1,000 MCG TABLET PO SCH (08:41)
[2020-02-11] MEDS: DEXAMETHASONE 2 MG TABLET PO SCH (08:41)
[2020-02-11] MEDS: FERROUS SULFATE 325 MG TABLET PO SCH ×2 (08:41→16:38)
[2020-02-11] MEDS: AZITHROMYCIN 250 MG TABLET PO SCH (09:05)
--- NOTE | 2020-02-11 13:00 | PN ---
Subjective - Date and Time Seen Date: 02/11/20 Time: 12:53 Subjective Narrative: I feel better, my breathing is easier. Objective Objective Narrative: 80-year-old male admitted for COVID-19 pneumonia, hypoxia, and anemia was evaluated at bedside this morning was found to be afebrile and in no acute distress. Patient continues to show clinical improvement however he still requires an increased amount of oxygen that is higher than his baseline. We will attempt to start weaning him down to see how he tolerates. Aside from that the patient continues to be afebrile and denies chills or body ache. He was transfused PRBCs yesterday but this morning's lab revealed persistently low hemoglobin levels, so an additional unit of PRBC was ordered and is being transfused. He is tolerating the transfusion without any issues and says compared to how he arrived he feels much better. We will continue to monitor him closely. - Review of Systems Generalized/Overall Review: Reports: Weakness EENTM: Reports: No Symptoms Reported Respiratory: Reports: Shortness of Breath Cardiac: Reports: No Symptoms Reported Abdominal: Reports: No Symptoms Reported Genitourinary Symptoms: Reports: No Symptoms Reported Musculoskeletal Complaints: Reports: No Symptoms Reported Neurological: Reports: No Symptoms Reported Skin: Reports: No Symptoms Reported Endocrine: Reports: No Symptoms Reported - Vitals Vitals: Last Vital Signs Temp 36.4 C 02/11/20 10:15 Pulse 62 02/11/20 10:15 Resp 20 02/11/20 10:15 BP 92/52 02/11/20 10:15 Pulse Ox 92 L 02/11/20 10:15 - Abnormal Lab Findings Abnormal Lab Findings: Abnormal Lab Results 02/08/20 02/10/20 02/11/20 Range/Units 12:04 07:40 05:10 RBC 3.21 L (4.7-6.0) M/mm3 Hgb 7.8 L* (13.5-18.0) gm/dL Hct 26.3 L (42.0-52.0) % MCH 24.3 L (27-31) pg MCHC 29.7 L (32-36) g/dl RDW 18.8 H (11.5-14.0) % Immature Gran % (Auto) 0.50 H (0.001-0.429) % Immature Gran # (Auto) 0.04 H (0.000-0.0310) K/mm3 Neutrophils % 76.9 H (42-75.0) % Lymphocytes % 14.4 L (20-51) % Monocytes % (0.0-9) % Lymphocytes # 1.07 L (1.5-3.5) k/mm3 Chloride 109 H (97-106) mmol/L Carbon Dioxide 22.8 L (24-32.6) mmol/L BUN 32 H (6-23) mg/dL BUN/Creatinine Ratio 36.0 H (9.0-21.6) ALT 9 L (19-67) U/L Total Protein 5.2 L (6.2-8.2) gm/dL Albumin 2.0 L (3.4-5.0) gm/dl Crossmatch See Detail 02/11/20 Range/Units 05:10 RBC 3.01 L (4.7-6.0) M/mm3 Hgb 7.4 L* (13.5-18.0) gm/dL Hct 24.7 L (42.0-52.0) % MCH 24.6 L (27-31) pg MCHC 30.0 L (32-36) g/dl RDW 18.9 H (11.5-14.0) % Immature Gran % (Auto) 1.00 H (0.001-0.429) % Immature Gran # (Auto) 0.07 H (0.000-0.0310) K/mm3 Neutrophils % (42-75.0) % Lymphocytes % 16.2 L (20-51) % Monocytes % 11.4 H (0.0-9) % Lymphocytes # 1.14 L (1.5-3.5) k/mm3 Chloride (97-106) mmol/L Carbon Dioxide (24-32.6) mmol/L BUN (6-23) mg/dL BUN/Creatinine Ratio (9.0-21.6) ALT (19-67) U/L Total Protein (6.2-8.2) gm/dL Albumin (3.4-5.0) gm/dl Crossmatch - Exam Constitutional: Present: Alert, Oriented x3, Cooperative, Well developed, Well nourished, No distress, Elderly ENT Exam: Present: normal ENT inspection, hard of hearing Neck: Present: non-tender, full range of motion, supple, normal inspection, trachea midline Breasts: Present: Exam deferred, Nontender Respiratory: Present: chest non-tender, lungs clear, normal breath sounds, no respiratory distress, no accessory muscle use Cardiovascular/Chest: Present: normal peripheral pulses, regular rate, rhythm, no chest tenderness, no edema, no gallop, no JVD, no murmur, no rub Abdomen: Present: Normal bowel sounds, soft, nontender, nondistended, no rebound tenderness, no masses /Rectal: Present: Exam deferred Extremity: Present: normal range of motion, non-tender, normal inspection, no pedal edema, no calf tenderness, normal capillary refill, pelvis stable Skin Exam: Present: normal color, warm/dry, no cyanosis Lymphatic: Present: no adenopathy Neurologic: Present: bander and cellophaner machine helper II-XII nml as tested, no motor/sensory deficits, alert, normal mood/affect, oriented x 3 Appearance: Present: appropriate appearance, appropriate insight Eye contact: Present: cooperative, good eye contact, normal speech Thoughts: Present: normal thought pattern, no apparent hallucination Assessment/Plan Plan Narrative: We will continue with the transfusion and repeat an H&H 2 hours after for reevaluation of his hemoglobin levels. In the meantime we will attempt to wean him down to his baseline oxygen to see how he tolerates. - Problems/Diagnosis (1) Acute respiratory failure Problem: Acute Qualifiers: Respiratory failure complication: hypoxia Qualified Code(s): J96.01 - Acute respiratory failure with hypoxia (2) Acute exacerbation of chronic obstructive pulmonary disease (COPD) Problem: Acute (3) Shortness of breath Problem: Acute (4) COPD (chronic obstructive pulmonary disease) Problem: Chronic Qualifiers: COPD type: unspecified COPD Qualified Code(s): J44.9 - Chronic obstructive pulmonary disease, unspecified (5) Chronic respiratory failure Problem: Chronic Qualifiers: Respiratory failure complication: hypoxia Qualified Code(s): J96.11 - Chronic respiratory failure with hypoxia (6) Pneumonia Problem: Acute Qualifiers: Pneumonia type: due to unspecified organism Laterality: right Lung location: middle lobe of lung Qualified Code(s): J18.9 - Pneumonia, unspecified organism (7) Pneumonia due to COVID-19 virus Problem: Acute (8) Hypoxia Problem: Acute (9) Anemia Problem: Acute (10) Acute and chronic respiratory failure with hypoxia Problem: Acute (11) Anemia of chronic disease Problem: Chronic (12) 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
[2020-02-11 15:52] LABS: Hematocrit 28.4 % (42.0-52.0); Hemoglobin 8.4 gm/dL (13.5-18.0)
[2020-02-11] MEDS: ROSUVASTATIN CALCIUM 20 MG TABLET PO SCH (20:11)
[2020-02-11] MEDS: MELATONIN 3,000 MCG TABLET PO SCH (20:12)
[2020-02-12] MEDS: ACETAMINOPHEN 325 MG TABLET PO SCH ×4 (04:23→22:35)
[2020-02-12] MEDS: ALBUTEROL SULFATE 2.5 MG/0.5 ML VIAL.NEB IH PRN ×2 (05:10→14:24)
[2020-02-12 07:13] LABS: Hematocrit 29.1 % (42.0-52.0); Hemoglobin 8.5 gm/dL (13.5-18.0)
[2020-02-12] MEDS: PANTOPRAZOLE SODIUM 20 MG TABLET.DR PO SCH ×2 (07:27→20:57)
[2020-02-12 07:28] LABS: Albumin * 2.2 gm/dl (3.4-5.0); BUN/Creatinine Ratio 31.7 (9.0-21.6); Bilirubin, Total 0.5 mg/dL (0.0-1.1); Ca. Corrected For Albumin 9.4 mg/dL (8.4-10.2); Calcium * 8.3 mg/dL (7.9-10.9); Carbon Dioxide 22.3 mmol/L (24-32.6); Potassium 4.3 mmol/L (3.4-4.6); Total Protein 5.5 gm/dL (6.2-8.2)
[2020-02-12] MEDS: REMDESIVIR 100 MG in NORMAL SALINE 230 ML IV SCH (08:19)
[2020-02-12] MEDS: ASPIRIN 325 MG TABLET.DR PO SCH (08:20)
[2020-02-12] MEDS: AZITHROMYCIN 250 MG TABLET PO SCH (08:20)
[2020-02-12] MEDS: DEXAMETHASONE 2 MG TABLET PO SCH (08:20)
[2020-02-12] MEDS: APIXABAN 5 MG TABLET PO SCH ×2 (08:20→20:56)
[2020-02-12] MEDS: AMIODARONE HCL 200 MG TABLET PO SCH (08:20)
[2020-02-12] MEDS: CYANOCOBALAMIN 1,000 MCG TABLET PO SCH (08:20)
[2020-02-12] MEDS: FERROUS SULFATE 325 MG TABLET PO SCH ×2 (08:20→16:39)
--- NOTE | 2020-02-12 14:49 | PN ---
Subjective - Date and Time Seen Date: 02/12/20 Time: 14:44 Subjective Narrative: My breathing is not doing good today. Objective Objective Narrative: 80-year-old male admitted for COVID-19 pneumonia, hypoxia, and anemia was evaluated at bedside this morning was found to be afebrile and in no acute distress. Patient has some difficulty breathing today, he is tachypneic and requiring more oxygen. A breathing treatment with DuoNeb was ordered in order to address this. Labs this morning revealed stable hemoglobin level after his transfusion and there were no other major abnormalities on his labs. There has been no recurrence of fever and the patient denies chills but his respiratory function continues to be an issue. The patient is still on oxygen mask requiring a significant amount of oxygen which would indicate significant respiratory impairment due to the COVID-19 virus. We will reevaluate him after the breathing treatments. - Review of Systems Generalized/Overall Review: Reports: No Symptoms Reported EENTM: Reports: No Symptoms Reported Respiratory: Reports: Shortness of Breath Cardiac: Reports: No Symptoms Reported Abdominal: Reports: No Symptoms Reported Genitourinary Symptoms: Reports: No Symptoms Reported Musculoskeletal Complaints: Reports: No Symptoms Reported Neurological: Reports: No Symptoms Reported Skin: Reports: No Symptoms Reported Endocrine: Reports: No Symptoms Reported - Vitals Vitals: Last Vital Signs Temp 36.8 C 02/12/20 10:00 Pulse 64 02/12/20 14:24 Resp 28 H 02/12/20 14:24 BP 110/54 02/12/20 10:00 Pulse Ox 94 02/12/20 14:24 - Abnormal Lab Findings Abnormal Lab Findings: Abnormal Lab Results 02/11/20 02/12/20 02/12/20 Range/Units 15:40 06:40 06:40 Hgb 8.4 L 8.5 L (13.5-18.0) gm/dL Hct 28.4 L 29.1 L (42.0-52.0) % Chloride 109 H (97-106) mmol/L Carbon Dioxide 22.3 L (24-32.6) mmol/L BUN 33 H (6-23) mg/dL BUN/Creatinine Ratio 31.7 H (9.0-21.6) ALT 15 L (19-67) U/L Total Protein 5.5 L (6.2-8.2) gm/dL Albumin 2.2 L (3.4-5.0) gm/dl - Exam Constitutional: Present: Alert, Oriented x3, Cooperative, Well developed, Well nourished, No distress, Elderly ENT Exam: Present: normal ENT inspection, hearing grossly normal Neck: Present: non-tender, full range of motion, supple, normal inspection, trachea midline Breasts: Present: Exam deferred, Nontender Respiratory: Present: chest non-tender, lungs clear, normal breath sounds, respiratory distress, accessory muscle use, crackles Cardiovascular/Chest: Present: normal peripheral pulses, regular rate, rhythm, no chest tenderness, no edema, no gallop, no JVD, no murmur, no rub Abdomen: Present: Normal bowel sounds, soft, nontender, nondistended, no rebound tenderness, no hepatospenomegaly, no masses /Rectal: Present: Exam deferred Extremity: Present: normal range of motion, non-tender, normal inspection, no pedal edema, no calf tenderness, normal capillary refill, pelvis stable Skin Exam: Present: normal color, warm/dry, no cyanosis Lymphatic: Present: no adenopathy Neurologic: Present: no motor/sensory deficits, alert, normal mood/affect, or iented x 3 Appearance: Present: appropriate appearance, appropriate insight, neat, no memory impairment Eye contact: Present: cooperative, normal speech Thoughts: Present: normal thought pattern, no apparent hallucination Assessment/Plan Plan Narrative: We will try a breathing treatment with DuoNeb in order to address the patient's difficulty breathing. We will also order follow-up labs for tomorrow morning to reevaluate electrolytes and hemoglobin levels. - Problems/Diagnosis (1) Acute respiratory failure Problem: Acute Qualifiers: Respiratory failure complication: hypoxia Qualified Code(s): J96.01 - Acute respiratory failure with hypoxia (2) Acute exacerbation of chronic obstructive pulmonary disease (COPD) Problem: Acute (3) Shortness of breath Problem: Acute (4) COPD (chronic obstructive pulmonary disease) Problem: Chronic Qualifiers: COPD type: unspecified COPD Qualified Code(s): J44.9 - Chronic obstructive pulmonary disease, unspecified (5) Chronic respiratory failure Problem: Chronic Qualifiers: Respiratory failure complication: hypoxia Qualified Code(s): J96.11 - Chronic respiratory failure with hypoxia (6) Pneumonia Problem: Acute Qualifiers: Pneumonia type: due to unspecified organism Laterality: right Lung location: middle lobe of lung Qualified Code(s): J18.9 - Pneumonia, unspecified organism (7) Pneumonia due to COVID-19 virus Problem: Acute (8) Hypoxia Problem: Acute (9) Anemia Problem: Acute (10) Acute and chronic respiratory failure with hypoxia Problem: Acute (11) Anemia of chronic disease Problem: Chronic (12) 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
[2020-02-12] MEDS: MELATONIN 3,000 MCG TABLET PO SCH (20:56)
[2020-02-12] MEDS: ROSUVASTATIN CALCIUM 20 MG TABLET PO SCH (20:57)
[2020-02-13] MEDS: ACETAMINOPHEN 325 MG TABLET PO SCH ×4 (05:10→22:02)
[2020-02-13 06:59] LABS: Hematocrit 29.6 % (42.0-52.0); Hemoglobin 8.7 gm/dL (13.5-18.0); Mean Cell Volume 81.3 fl (78-100); Mean Corpuscular Hemoglobin 23.9 pg (27-31); Mean Corpuscular Hgb Conc 29.4 g/dl (32-36); Mean Platelet Volume 9.3 fl (8-11.3); Platelet Count 295 K/mm3 (150-450); Red Blood Count 3.64 M/mm3 (4.7-6.0); Red Cell Distribution Width 18.8 % (11.5-14.0); White Blood Count 8.7 K/mm3 (4.0-10.5)
[2020-02-13 07:02] LABS: Total Cells Counted 100
[2020-02-13] MEDS: PANTOPRAZOLE SODIUM 20 MG TABLET.DR PO SCH ×2 (07:14→20:54)
[2020-02-13 07:44] LABS: Lymphocyte 18 % (20-51); Monocyte 9 % (0-9); Neutrophil 73 % (42-75); Neutrophil # 6.4 K/mm3 (1.3-6.0)
[2020-02-13 07:45] LABS: Platelet Estimate Normal (NORMAL)
[2020-02-13 07:46] LABS: Hypochromia 1+; Poikilocytosis 1+; Polychromasia 1+
[2020-02-13 07:47] LABS: Albumin * 2.2 gm/dl (3.4-5.0); Anion Gap 11.7 mmol/L (6.8-13.8); BUN/Creatinine Ratio 28.7 (9.0-21.6); Bilirubin, Total 0.6 mg/dL (0.0-1.1); Calcium * 7.9 mg/dL (7.9-10.9); Potassium 4.7 mmol/L (3.4-4.6); Total Protein 5.1 gm/dL (6.2-8.2)
[2020-02-13 07:48] LABS: Target Cells Trace
[2020-02-13] MEDS: REMDESIVIR 100 MG in NORMAL SALINE 230 ML IV SCH (08:29)
[2020-02-13] MEDS: ASPIRIN 325 MG TABLET.DR PO SCH (08:29)
[2020-02-13] MEDS: AZITHROMYCIN 250 MG TABLET PO SCH (08:30)
[2020-02-13] MEDS: CYANOCOBALAMIN 1,000 MCG TABLET PO SCH (08:30)
[2020-02-13] MEDS: APIXABAN 5 MG TABLET PO SCH ×2 (08:30→20:52)
[2020-02-13] MEDS: AMIODARONE HCL 200 MG TABLET PO SCH (08:30)
[2020-02-13] MEDS: FERROUS SULFATE 325 MG TABLET PO SCH ×2 (08:30→16:06)
[2020-02-13] MEDS: DEXAMETHASONE 2 MG TABLET PO SCH (08:30)
[2020-02-13] MEDS: MELATONIN 3,000 MCG TABLET PO SCH (20:52)
[2020-02-13] MEDS: ROSUVASTATIN CALCIUM 20 MG TABLET PO SCH (20:54)
--- NOTE | 2020-02-13 23:31 | PN ---
Subjective - Date and Time Seen Date: 02/13/20 Time: 16:30 Subjective Narrative: He reports bottom is sore. No fever, chills, nausea, or vomiting. He reports breathing is ok. Currently on 8lpm oxymask. Objective - Vitals Vitals: Last Vital Signs Temp 36.6 C 02/13/20 22:09 Pulse 54 L 02/13/20 22:09 Resp 18 02/13/20 22:09 BP 104/51 02/13/20 22:09 Pulse Ox 94 02/13/20 22:09 - Abnormal Lab Findings Abnormal Lab Findings: Abnormal Lab Results 02/13/20 02/13/20 Range/Units 06:50 06:50 RBC 3.64 L (4.7-6.0) M/mm3 Hgb 8.7 L (13.5-18.0) gm/dL Hct 29.6 L (42.0-52.0) % MCH 23.9 L (27-31) pg MCHC 29.4 L (32-36) g/dl RDW 18.8 H (11.5-14.0) % Lymphocytes % (Manual) 18 L (20-51) % Neutrophils # (Manual) 6.4 H (1.3-6.0) K/mm3 Potassium 4.7 H (3.4-4.6) mmol/L Chloride 109 H (97-106) mmol/L Carbon Dioxide 23.0 L (24-32.6) mmol/L BUN 29 H (6-23) mg/dL BUN/Creatinine Ratio 28.7 H (9.0-21.6) ALT 10 L (19-67) U/L Total Protein 5.1 L (6.2-8.2) gm/dL Albumin 2.2 L (3.4-5.0) gm/dl - Exam Constitutional: Present: Alert, Oriented x3, Cooperative Respiratory: Present: normal breath sounds, no respiratory distress Cardiovascular/Chest: Present: regular rate, rhythm, no edema, no murmur Abdomen: Present: soft, nontender, nondistended, no rebound tenderness Skin Exam: Present: other - Quarter sized sacral decub ulcer, stage 2 Appearance: Present: appropriate appearance, appropriate insight Thoughts: Present: normal thought pattern, no apparent hallucination, auditory hallucinations Assessment/Plan Plan Narrative: Horace has stable respiratory status today, oxygen demand unchanged. He appears to be doing well. Will consult wound clinic for sacral decub. Continue to attempt wean from oxygen. - Problems/Diagnosis (1) Acute and chronic respiratory failure with hypoxia Problem: Acute (2) Pneumonia due to COVID-19 virus Problem: Acute (3) Chronic diastolic CHF (congestive heart failure) Problem: Chronic (4) COPD (chronic obstructive pulmonary disease) Problem: Chronic Qualifiers: COPD type: unspecified COPD Qualified Code(s): J44.9 - Chronic obstructive pulmonary disease, unspecified (5) Anemia of chronic disease Problem: Chronic (6) Sacral decubitus ulcer Problem: Acute Qualifiers: Pressure injury stage: stage 2 Qualified Code(s): L89.152 - Pressure ulcer of sacral region, stage 2
[2020-02-14] MEDS: ACETAMINOPHEN 325 MG TABLET PO SCH ×4 (04:13→21:53)
[2020-02-14] MEDS: PANTOPRAZOLE SODIUM 20 MG TABLET.DR PO SCH ×2 (07:23→20:06)
[2020-02-14] MEDS: REMDESIVIR 100 MG in NORMAL SALINE 230 ML IV SCH (09:14)
[2020-02-14] MEDS: ASPIRIN 325 MG TABLET.DR PO SCH (10:50)
[2020-02-14] MEDS: DEXAMETHASONE 2 MG TABLET PO SCH (10:51)
[2020-02-14] MEDS: AMIODARONE HCL 200 MG TABLET PO SCH (10:51)
[2020-02-14] MEDS: CYANOCOBALAMIN 1,000 MCG TABLET PO SCH (10:51)
[2020-02-14] MEDS: FERROUS SULFATE 325 MG TABLET PO SCH ×2 (10:51→16:03)
[2020-02-14] MEDS: AZITHROMYCIN 250 MG TABLET PO SCH (10:51)
[2020-02-14] MEDS: APIXABAN 5 MG TABLET PO SCH ×2 (10:51→20:06)
--- NOTE | 2020-02-14 11:22 | CONS ---
[facility] - General Date of Service: 02/14/20 Narrative: Patient is a 80-year-old male, admitted to the hospital on 02/08/2020, regarding acute respiratory failure with hypoxia, pneumonia due to COVID-19, chronic congestive heart failure, COPD and anemia of chronic disease.. He initially presented to the emergency department for evaluation and care, due to shortness of breath and fatigue. He is a resident of the [facility]. It was noted on admission that he had an ulcer on his right buttock. The patient states that this ulcer has been present for "a very long time ". He says that he is ambulatory at home, and walks without assistance. Current treatment includes a Mepilex border and offloading. The patient describes mild to moderate pain associated with the area. His additional medical history is notable for brain aneurysm, coronary artery disease, DVT, GERD, hypertension, hyperlipidemia and subdural hemorrhage. Source: patient - History of Present Illness Timing/Duration: unsure Allergies/Adverse Reactions: Allergies influenza virus vaccine tvs [id number](65 years up) [From Fluad [id number] (65 yr up)(PF)] Allergy (Intermediate, Verified 02/08/20 13:03) Hives vaccine adjuvant emulsion MF59C.1 [From Fluad [id number] (65 yr up)(PF)] Allergy (Intermediate, Verified 02/08/20 13:03) Hives carbamazepine [From Tegretol] Allergy (Mild, Verified 02/08/20 13:03) Hives Penicillins Allergy (Mild, Verified 02/08/20 13:03) Hives Home Medications: Home Medications Medication Instructions Recorded Last Taken Oxygen 0 .ROUTE .MEDSUPPLY #1 ea 08/02/19 Unknown azithromycin 250 mg tablet See Rx Instructions PO .COMPLEX #6 02/07/20 Unknown tab dexamethasone 6 mg tablet 6 mg PO DAILY #10 tab 02/07/20 Unknown Acetaminophen [Tylenol] 650 mg PO Q6H PRN 02/08/20 Unknown Albuterol Sulfate [Albuterol 1 vial IH Q4H PRN 02/08/20 Unknown Sulfate 2.5 MG/0.5ML] Amiodarone HCl [Cordarone] 200 mg PO DAILY 02/08/20 Unknown Apixaban [Eliquis] 5 mg PO BID 02/08/20 Unknown Arginine/Ascorbate Sod/Luna AC 1 ea PO DAILY 02/08/20 Unknown [Arginaid Powder] Aspirin 325 mg PO DAILY 02/08/20 Unknown Atorvastatin Calcium 40 mg PO HS 02/08/20 Unknown Bisacodyl [Laxative Suppository] 10 mg RC PRN PRN 02/08/20 Unknown Ergocalciferol [Calciferol, 50,000 units PO MÉNDEZ 02/08/20 Unknown Vitamin D] Magnesium Hydroxide [Dulcolax] 400 mg PO Q6H PRN 02/08/20 Unknown Melatonin 10 mg PO HS 02/08/20 Unknown Omeprazole 20 mg PO BID 02/08/20 Unknown Simethicone [Gas Relief] 80 mg PO Q6H PRN 02/08/20 Unknown Procedures Closed [endoscopic] biopsy of large intestine (10/13/02) Esophagogastroduodenoscopy [EGD] with closed biopsy (07/09/99) Extracorporeal shockwave lithotripsy [ESWL] of the kidney, ureter and/or bladder (07/08/04) Laparoscopic cholecystectomy (09/20/06) Other cystoscopy (09/16/12) Other transurethral excision or destruction of lesion or tissue of bladder (09/20/06) Other transurethral prostatectomy (07/03/03) Removal of ureterostomy tube and ureteral catheter (09/22/12) Retrograde pyelogram (07/07/04) Transurethral clearance of bladder (09/20/06) Transurethral removal of obstruction from ureter and renal pelvis (09/22/12) Ureteral catheterization (09/16/12) Ureteroscopy (09/22/12) Medications - Medications Current Medications: Current Medications Acetaminophen (Acetaminophen 325 Mg Tablet) 650 mg PO Q6H [facility] Stop: 03/09/20 16:46 Last Admin: 02/14/20 10:50 Dose: 650 mg Documented by: Albuterol Sulfate (Albuterol Sulfate 2.5 Mg/0.5 Ml Vial.Neb) 2.5 mg IH Q4H PRN PRN Reason: COUGHING/WHEEZING Stop: 03/09/20 16:45 Last Admin: 02/12/20 14:24 Dose: 2.5 mg Documented by: Amiodarone HCl (Amiodarone Hcl 200 Mg Tablet) 200 mg PO DAILY [facility] Stop: 03/10/20 09:01 Last Admin: 02/14/20 10:51 Dose: 200 mg Documented by: Apixaban (Apixaban 5 Mg Tablet) 5 mg PO BID [facility] Stop: 03/09/20 21:01 Last Admin: 02/14/20 10:51 Dose: 5 mg Documented by: Aspirin (Aspirin 325 Mg Tablet.) 325 mg PO DAILY [facility] Stop: 03/10/20 09:01 Last Admin: 02/14/20 10:50 Dose: 325 mg Documented by: Cyanocobalamin (Cyanocobalamin 1,000 Mcg Tablet) 1,000 mcg PO DAILY [facility] Stop: 03/10/20 09:01 Last Admin: 02/14/20 10:51 Dose: 1,000 mcg Documented by: Dexamethasone (Dexamethasone 2 Mg Tablet) 6 mg PO DAILY [facility] Stop: 03/10/20 09:01 Last Admin: 02/14/20 10:51 Dose: 6 mg Documented by: Ferrous Sulfate (Ferrous Sulfate 325 Mg Tablet) 325 mg PO BIDWM [facility] Stop: 03/09/20 17:01 Last Admin: 02/14/20 10:51 Dose: 325 mg Documented by: Melatonin (Melatonin 3,000 Mcg Tablet) 9,000 mcg PO [facility] Stop: 03/09/20 21:01 Last Admin: 02/13/20 20:52 Dose: 9,000 mcg Documented by: Pantoprazole Sodium (Pantoprazole Sodium 20 Mg Tablet.) 20 mg PO BID@0700,2100 [facility] Stop: 03/09/20 21:01 Last Admin: 02/14/20 07:23 Dose: 20 mg Documented by: Rosuvastatin Calcium (Rosuvastatin Calcium 20 Mg Tablet) 20 mg PO [facility] Stop: 03/09/20 21:01 Last Admin: 02/13/20 20:54 Dose: 20 mg Documented by: Review of Systems - Review of Systems Generalized/Overall Review: Present: Weakness. Absent: Fever EENTM: Absent: Nose Congestion Respiratory: Absent: Cough, Shortness of Breath Cardiac: Absent: Chest Pain Abdominal: Absent: Nausea, Vomiting Musculoskeletal: Present: Back Pain Neurological: Absent: Headache Skin: Present: Lesions Physical Examination - Exam Vital Signs: Vital Signs - Last Taken Temp 36.9 C 02/14/20 02:07 Pulse 55 L 02/14/20 06:00 Resp 20 02/14/20 06:00 BP 112/54 02/14/20 06:00 Pulse Ox 97 12/15/20 06:00 O2 Oxygen Delivery Method Oxy-mask Constitutional: Present: Alert, No distress ENT Exam: Present: hard of hearing Respiratory: Present: no respiratory distress Skin Exam: Present: warm/dry, other - There is an open area on the right buttock measuring approximately 4 cm x 1 cm x 0.1 cm. Moderate amount of yellow necrotic tissue is present small amount of red granulation. No erythema or induration is noted. - Results and Findings: Lab/Microbiology results last 24 hrs: Culture 02/08/20 11:04 Blood Culture - Final Blood NO GROWTH 5 DAYS 02/08/20 10:50 Blood Culture - Final Blood NO GROWTH 5 DAYS - Assessments/Findings (1) Pressure ulcer of right buttock, stage 2 Diagnosis(s): Recommend using Santyl to the open area on the right buttock. This will be covered with gauze and secured with tape. Dressing will be changed daily. The area will be washed with soap and water at dressing changes. They will continue with excellent offloading. Problem: Acute
[2020-02-14 15:15] LABS: Albumin * 2.2 gm/dl (3.4-5.0); BUN/Creatinine Ratio 42.6 (9.0-21.6); Bilirubin, Total 0.7 mg/dL (0.0-1.1); Ca. Corrected For Albumin 9.1 mg/dL (8.4-10.2); Carbon Dioxide 19.3 mmol/L (24-32.6); Potassium 5.3 mmol/L (3.4-4.6); Total Protein 5.6 gm/dL (6.2-8.2)
[2020-02-14] MEDS: COLLAGENASE CLOSTRIDIUM HIST. 30 APPL TUBE TP SCH (16:03)
[2020-02-14] MEDS: MELATONIN 3,000 MCG TABLET PO SCH (20:06)
[2020-02-14] MEDS: ROSUVASTATIN CALCIUM 20 MG TABLET PO SCH (20:06)
--- NOTE | 2020-02-14 23:18 | PN ---
Subjective - Date and Time Seen Date: 02/14/20 Time: 12:30 Subjective Narrative: Horace reports feeling with his hands and requests a million dollars. His only concern is his sore bottom. Wound clinic was consulted today and gave recommendations. He reports breathing is ok. No fever or chills. Objective - Vitals Vitals: Last Vital Signs Temp 36.9 C 02/14/20 22:18 Pulse 55 L 02/14/20 22:18 Resp 18 02/14/20 22:18 BP 93/39 02/14/20 22:18 Pulse Ox 93 02/14/20 23:13 - Abnormal Lab Findings Abnormal Lab Findings: Abnormal Lab Results 02/14/20 Range/Units 14:50 Potassium 5.3 H (3.4-4.6) mmol/L Carbon Dioxide 19.3 L (24-32.6) mmol/L Anion Gap 14.0 H (6.8-13.8) mmol/L BUN 40 H (6-23) mg/dL BUN/Creatinine Ratio 42.6 H (9.0-21.6) ALT 13 L (19-67) U/L Total Protein 5.6 L (6.2-8.2) gm/dL Albumin 2.2 L (3.4-5.0) gm/dl - Exam Constitutional: Present: Alert, Oriented x3, Cooperative, No distress ENT Exam: Present: hearing grossly normal Respiratory: Present: lungs clear, normal breath sounds Cardiovascular/Chest: Present: regular rate, rhythm, no murmur Abdomen: Present: Normal bowel sounds, soft, nontender Extremity: Present: normal inspection Assessment/Plan Plan Narrative: He has completed veklury and antibiotics. Oxygen requirement is stable but not making much progress on weaning down to his baseline of 2lpm. He is currently on 5 or 6lpm through the day if not able to wean further may need to repeat chest xray tomorrow, consider diuretics. - Problems/Diagnosis (1) Acute and chronic respiratory failure with hypoxia Problem: Acute (2) Pneumonia due to COVID-19 virus Problem: Acute (3) Chronic diastolic CHF (congestive heart failure) Problem: Chronic (4) COPD (chronic obstructive pulmonary disease) Problem: Chronic Qualifiers: COPD type: unspecified COPD Qualified Code(s): J44.9 - Chronic obstructive pulmonary disease, unspecified (5) Anemia of chronic disease Problem: Chronic (6) Sacral decubitus ulcer Problem: Acute Qualifiers: Pressure injury stage: stage 2 Qualified Code(s): L89.152 - Pressure ulcer of sacral region, stage 2
[2020-02-15] MEDS: ACETAMINOPHEN 325 MG TABLET PO SCH ×4 (04:27→22:47)
[2020-02-15] MEDS: PANTOPRAZOLE SODIUM 20 MG TABLET.DR PO SCH ×2 (07:18→20:16)
[2020-02-15] MEDS: FERROUS SULFATE 325 MG TABLET PO SCH ×2 (08:15→17:00)
[2020-02-15] MEDS: ASPIRIN 325 MG TABLET.DR PO SCH (08:15)
[2020-02-15] MEDS: CYANOCOBALAMIN 1,000 MCG TABLET PO SCH (08:15)
[2020-02-15] MEDS: DEXAMETHASONE 2 MG TABLET PO SCH (08:15)
[2020-02-15] MEDS: APIXABAN 5 MG TABLET PO SCH ×2 (08:15→20:15)
[2020-02-15] MEDS: AMIODARONE HCL 200 MG TABLET PO SCH (08:15)
[2020-02-15] MEDS: COLLAGENASE CLOSTRIDIUM HIST. 30 APPL TUBE TP SCH (10:31)
[2020-02-15] MEDS: MELATONIN 3,000 MCG TABLET PO SCH (20:15)
[2020-02-15] MEDS: ROSUVASTATIN CALCIUM 20 MG TABLET PO SCH (20:15)
--- NOTE | 2020-02-15 21:11 | PN ---
Subjective - Date and Time Seen Date: 02/15/20 Time: 16:00 Subjective Narrative: Horace reports feeling well. His oxygenation has been doing well. He is down to 3lpm today. No fever, chills, nausea, or vomiting. Objective - Vitals Vitals: Last Vital Signs Temp 36 C 02/15/20 17:57 Pulse 72 02/15/20 17:57 Resp 20 02/15/20 17:57 BP 130/51 02/15/20 17:57 Pulse Ox 100 02/15/20 17:57 - Exam Constitutional: Present: Alert, Oriented x3 ENT Exam: Present: hearing grossly normal Respiratory: Present: lungs clear, normal breath sounds Cardiovascular/Chest: Present: regular rate, rhythm, no edema Abdomen: Present: Normal bowel sounds, soft, nontender, nondistended Extremity: Present: normal inspection Assessment/Plan Plan Narrative: Improved today. He is down to 3lpm on oxygen, his baseline is 2lpm. May be able to discharge in the next day or two if he gets down to his baseline of 2lpm. - Problems/Diagnosis (1) Acute and chronic respiratory failure with hypoxia Problem: Acute (2) Pneumonia due to COVID-19 virus Problem: Acute (3) Chronic diastolic CHF (congestive heart failure) Problem: Chronic (4) COPD (chronic obstructive pulmonary disease) Problem: Chronic Qualifiers: COPD type: unspecified COPD Qualified Code(s): J44.9 - Chronic obstructive pulmonary disease, unspecified (5) Anemia of chronic disease Problem: Chronic (6) Sacral decubitus ulcer Problem: Acute Qualifiers: Pressure injury stage: stage 2 Qualified Code(s): L89.152 - Pressure ulcer of sacral region, stage 2
[2020-02-16] MEDS: ACETAMINOPHEN 325 MG TABLET PO SCH ×2 (05:16→10:08)
[2020-02-16] MEDS: PANTOPRAZOLE SODIUM 20 MG TABLET.DR PO SCH (06:56)
[2020-02-16] MEDS: AMIODARONE HCL 200 MG TABLET PO SCH (08:51)
[2020-02-16] MEDS: APIXABAN 5 MG TABLET PO SCH (08:51)
[2020-02-16] MEDS: DEXAMETHASONE 2 MG TABLET PO SCH (08:51)
[2020-02-16] MEDS: ASPIRIN 325 MG TABLET.DR PO SCH (08:51)
[2020-02-16] MEDS: FERROUS SULFATE 325 MG TABLET PO SCH (08:51)
[2020-02-16] MEDS: COLLAGENASE CLOSTRIDIUM HIST. 30 APPL TUBE TP SCH (08:52)
[2020-02-16] MEDS: CYANOCOBALAMIN 1,000 MCG TABLET PO SCH (08:52)
--- NOTE | 2020-02-16 09:10 | DS ---
(1) Acute and chronic respiratory failure with hypoxia Problem: Resolved (2) Pneumonia due to COVID-19 virus Problem: Resolved (3) Chronic diastolic CHF (congestive heart failure) Problem: Chronic (4) COPD (chronic obstructive pulmonary disease) Problem: Chronic Qualifiers: COPD type: unspecified COPD Qualified Code(s): J44.9 - Chronic obstructive pulmonary disease, unspecified (5) Anemia of chronic disease Problem: Chronic (6) Pressure ulcer of right buttock, stage 2 Problem: Acute Date of Discharge:: 02/16/20 Hospital Course: Horace is a 80 yo male that was admitted with acute on chronic respiratory failure secondary to COVID-19 pneumonia. He was treated with azithromycin, dexamethasone, and Veklury. His oxygen requirements were titrated to keep sats at 90% or above. He was increased to as high as 8lpm on oxy-mask, but over time weaned down to 3lpm. He appears to be doing well and feels back to his usual. As he is currently back to a low flow rate near his baseline he will be discharged back to [facility] today. He will remain on 3lpm continuously as his new baseline oxygen flow rate. He has completed antiviral treatment course as well as azithromycin. Procedures Performed: none Results and Findings: Lab Pending Results 02/08/20 11:04: Procalcitonin 0.08 02/08/20 11:04: WBC 4.6, RBC 2.97 L, Hgb 7.1 L* D, Hct 24.2 L, MCV 81.5, MCH 23.9 L, MCHC 29.3 L, RDW 19.4 H, Plt Count 212, MPV 9.7, Immature Gran % (Auto) 0.40, Immature Gran # (Auto) 0.02, Neutrophils % 71.9, Lymphocytes % 19.6 L, Monocytes % 7.9, Eosinophils % 0.0, Basophils % 0.2, Nucleated RBC % 0.0, Neutrophils # 3.3, Lymphocytes # 0.89 L, Monocytes # 0.4, Eosinophils # 0.0, Absolute Basophils 0.0 02/08/20 11:04: Sodium 139, Plasma Sodium 139, Potassium 5.0 H D, Chloride 109 H, Carbon Dioxide 19.5 L, Anion Gap 15.5 H, BUN 37 H D, Creatinine 1.25, Est GFR (Non-Af Amer) 59 L, BUN/Creatinine Ratio 29.6 H, Random Glucose 106, Calcium 8.4, Calcium Adj for Albumin 9.4, Total Bilirubin 0.4, AST 19, ALT 13 L, Alkaline Phosphatase 70, Troponin I Less than 0.017, B-Natriuretic Peptide 1638 H, Total Protein 5.8 L, Albumin 2.3 L 02/08/20 11:04: D-Dimer 0.96 H 02/08/20 11:04: Lactic Acid, Venous 1.9 02/08/20 11:05: pCO2 24.4 L, pO2 52.8 L, HCO3 15.9 L, Total CO2 16.6 L, Base Excess -7.5 L, ABG pH 7.43, ABG O2 Sat (Measured) 89.1 L 02/08/20 11:27: Urine Color Yellow, Urine Appearance Clear, Urine pH 5.0, Ur Specific [place] 1.020, Urine Protein Negative, Urine Glucose (UA) Negative, Urine Ketones Negative, Urine Blood 50 H, Urine Nitrate Negative, Urine Bilirubin Negative, Urine Urobilinogen Normal, Ur Leukocyte Esterase Negative, Urine RBC 10-25 H, Urine WBC None seen, Ur Epithelial Cells None seen, Urine Bacteria Trace, Urine Culture Comments Culture to follow 02/08/20 12:04: Blood Type B Negative, Antibody Screen Positive, Antibody Identification Anti-Jkb, Crossmatch See Detail 02/09/20 06:18: WBC 3.9 L, RBC 3.04 L, Hgb 7.2 L*, Hct 24.8 L, MCV 81.6, MCH 23.7 L, MCHC 29.0 L, RDW 19.3 H, Plt Count 229, MPV 9.6, Immature Gran % (Auto) 1.00 H, Immature Gran # (Auto) 0.04 H, Neutrophils % 68.0, Lymphocytes % 19.7 L, Monocytes % 11.3 H, Eosinophils % 0.0, Basophils % 0.0, Nucleated RBC % 0.0, Neutrophils # 2.7, Lymphocytes # 0.77 L, Monocytes # 0.4, Eosinophils # 0.0, Absolute Basophils 0.0 02/09/20 06:18: Sodium 139, Plasma Sodium 139, Potassium 4.9 H, Chloride 109 H, Carbon Dioxide 22.0 L, Anion Gap 12.9, BUN 37 H, Creatinine 0.98, Est GFR (Non- Af Amer) 78 D, BUN/Creatinine Ratio 37.8 H, Random Glucose 111 H, Calcium 8.7, Calcium Adj for Albumin 9.8, Total Bilirubin 0.4, AST 20, ALT 11 L, Alkaline Phosphatase 68, Total Protein 5.7 L, Albumin 2.2 L, Vitamin B12 211 02/09/20 06:18: Iron 11 L, TIBC 239 L, Transferrin % Sat 5 L 02/09/20 10:10: SARS-CoV-2 (PCR) Detected H 02/10/20 07:40: Sodium 139, Plasma Sodium 139, Potassium 4.7 H, Chloride 110 H, Carbon Dioxide 21.1 L, Anion Gap 12.6, BUN 35 H, Creatinine 0.87, Est GFR (Non- Af Amer) 90, BUN/Creatinine Ratio 40.2 H, Random Glucose 102, Calcium 8.1, Calcium Adj for Albumin 9.2, Total Bilirubin 0.4, AST 22, ALT 11 L, Alkaline Phosphatase 73, Total Protein 5.2 L, Albumin 2.2 L 02/10/20 07:40: WBC 7.4 D, RBC 3.21 L, Hgb 7.8 L*, Hct 26.3 L, MCV 81.9, MCH 24.3 L, MCHC 29.7 L, RDW 18.8 H, Plt Count 271, MPV 9.7, Immature Gran % (Auto) 0.50 H, Immature Gran # (Auto) 0.04 H, Neutrophils % 76.9 H, Lymphocytes % 14.4 L, Monocytes % 8.1, Eosinophils % 0.0, Basophils % 0.1, Nucleated RBC % 0.0, Neutrophils # 5.7, Lymphocytes # 1.07 L, Monocytes # 0.6, Eosinophils # 0.0, Absolute Basophils 0.0 02/11/20 05:10: Sodium 137, Plasma Sodium 137, Potassium 4.6, Chloride 109 H, Carbon Dioxide 22.8 L, Anion Gap 9.8, BUN 32 H, Creatinine 0.89, Est GFR (Non-Af Amer) 88, BUN/Creatinine Ratio 36.0 H, Random Glucose 96, Calcium 8.1, Calcium Adj for Albumin 9.4, Total Bilirubin 0.4, AST 17, ALT 9 L, Alkaline Phosphatase 66, Total Protein 5.2 L, Albumin 2.0 L 02/11/20 05:10: WBC 7.0, RBC 3.01 L, Hgb 7.4 L*, Hct 24.7 L, MCV 82.1, MCH 24.6 L, MCHC 30.0 L, RDW 18.9 H, Plt Count 259, MPV 9.5, Immature Gran % (Auto) 1.00 H, Immature Gran # (Auto) 0.07 H, Neutrophils % 71.3, Lymphocytes % 16.2 L, Monocytes % 11.4 H, Eosinophils % 0.0, Basophils % 0.1, Nucleated RBC % 0.0, Neutrophils # 5.0, Lymphocytes # 1.14 L, Monocytes # 0.8, Eosinophils # 0.0, Absolute Basophils 0.0 02/11/20 15:40: Hgb 8.4 L, Hct 28.4 L 02/12/20 06:40: Sodium 138, Plasma Sodium 138, Potassium 4.3, Chloride 109 H, Carbon Dioxide 22.3 L, Anion Gap 11.0, BUN 33 H, Creatinine 1.04, Est GFR (Non- Af Amer) 73, BUN/Creatinine Ratio 31.7 H, Random Glucose 97, Calcium 8.3, Calcium Adj for Albumin 9.4, Total Bilirubin 0.5, AST 15, ALT 15 L, Alkaline Phosphatase 71, Total Protein 5.5 L, Albumin 2.2 L 02/12/20 06:40: Hgb 8.5 L, Hct 29.1 L 02/13/20 06:50: Sodium 139, Plasma Sodium 139, Potassium 4.7 H, Chloride 109 H, Carbon Dioxide 23.0 L, Anion Gap 11.7, BUN 29 H, Creatinine 1.01, Est GFR (Non- Af Amer) 76, BUN/Creatinine Ratio 28.7 H, Random Glucose 89, Calcium 7.9, Calcium Adj for Albumin 9.0, Total Bilirubin 0.6, AST 14, ALT 10 L, Alkaline Phosphatase 72, Total Protein 5.1 L, Albumin 2.2 L 02/13/20 06:50: WBC 8.7 D, RBC 3.64 L, Hgb 8.7 L, Hct 29.6 L, MCV 81.3, MCH 23.9 L, MCHC 29.4 L, RDW 18.8 H, Plt Count 295, MPV 9.3, Neutrophils % (Manual) 73, Lymphocytes % (Manual) 18 L, Monocytes % (Manual) 9, Neutrophils # (Manual) 6.4 H, Lymphocytes # (Manual) 1.6, Monocytes # (Manual) 0.8, Platelet Estimate Normal, Polychromasia 1+, Hypochromasia 1+, Poikilocytosis 1+, Target Cells Trace 02/14/20 14:50: Sodium 134, Plasma Sodium 134, Potassium 5.3 H, Chloride 106, Carbon Dioxide 19.3 L, Anion Gap 14.0 H, BUN 40 H, Creatinine 0.94, Est GFR (Non-Af Amer) 82, BUN/Creatinine Ratio 42.6 H, Random Glucose 96, Calcium 8.0, Calcium Adj for Albumin 9.1, Total Bilirubin 0.7, AST 36, ALT 13 L, Alkaline Phosphatase 74, Total Protein 5.6 L, Albumin 2.2 L Discharge Location: [facility] Disposition: SNF Condition: Fair Level of Care: SNF Discharge Activity: Activity as tolerated Discharge Diet: General/regular food Referrals: Maxi Whaley DO [Primary Care Provider] - One Week (video visit) Problem Oriented Discharge Instructions to Patient/Family: COVID-19 Additional Patient Instructions (free text): From [facility], please call and fax discharge information to them. Continue oxygen at 3lpm continuous. Recommend using Santyl to the open area on the right buttock. This will be covered with gauze and secured with tape. Dressing will be changed daily. The area will be washed with soap and water at dressing changes. Continue with excellent offloading. Prescriptions (Any new or edited meds): Dexamethasone [Decadron] 4 mg PO DAILY #21 tab Transmission Status: Pending to [facility] Ferrous Sulfate 325 mg PO BIDWM #60 tab Transmission Status: Pending to [facility] Collagenase Clostridium Hist. [Santyl] 1 appl TP DAILY #1 tube Transmission Status: Pending to [facility] [place] Complete Home Medications List: Complete Home Medication List: Oxygen 0 .ROUTE .MEDSUPPLY #1 ea 08/02/19 Acetaminophen [Tylenol] 650 mg PO Q6H PRN 02/08/20 Albuterol Sulfate [Albuterol Sulfate 2.5 MG/0.5ML] 1 vial IH Q4H PRN 02/08/20 Amiodarone HCl [Cordarone] 200 mg PO DAILY 02/08/20 Apixaban [Eliquis] 5 mg PO BID 02/08/20 Arginine/Ascorbate Sod/Luna AC [Arginaid Powder] 1 ea PO DAILY 02/08/20 Aspirin 325 mg PO DAILY 02/08/20 Atorvastatin Calcium 40 mg PO HS 02/08/20 Bisacodyl [Laxative Suppository] 10 mg RC PRN PRN 02/08/20 Ergocalciferol [Calciferol] 50,000 units PO MÉNDEZ 02/08/20 Magnesium Hydroxide [Dulcolax] 400 mg PO Q6H PRN 02/08/20 Melatonin 10 mg PO HS 02/08/20 Omeprazole 20 mg PO BID 02/08/20 Simethicone [Gas Relief] 80 mg PO Q6H PRN 02/08/20 Collagenase Clostridium Hist. [Santyl] 1 appl TP DAILY #1 tube 02/16/20 Dexamethasone [Decadron] 4 mg PO DAILY #21 tab 02/16/20 Ferrous Sulfate 325 mg PO BIDWM #60 tab 02/16/20 Forms: Patient Portal Registration
[2020-02-16 11:00] VITALS: BP 99/47
== END 2020-02-16 11:40 | DRG 177 ==
LOC: SCU 09:55 → ER 09:55 → SCU 12:20
PROVIDERS: ADMIT Family Medicine; ATTEND Family Medicine

== ENCOUNTER 2020-02-19 10:45 | Inpatient (IN) ==
[2020-02-19] MEDS ORDERED: MORPHINE SULFATE 2 MG/ML DISP.SYRIN IV ONE (11:09)
[2020-02-19] MEDS ORDERED: MORPHINE SULFATE 2 MG/ML DISP.SYRIN ONE (13:30)
[2020-02-19 13:41] LABS: Hematocrit 32.1 % (42.0-52.0); Hemoglobin 8.9 gm/dL (13.5-18.0); Mean Cell Volume 84.5 fl (78-100); Mean Corpuscular Hemoglobin 23.4 pg (27-31); Mean Corpuscular Hgb Conc 27.7 g/dl (32-36); Mean Platelet Volume 8.9 fl (8-11.3); Platelet Count 338 K/mm3 (150-450); Red Cell Distribution Width 18.9 % (11.5-14.0); White Blood Count 12.8 K/mm3 (4.0-10.5)
[2020-02-19 13:43] LABS: Urine Appearance Clear (CLEAR); Urine Bacteria None Seen; Urine Bilirubin Negative (NEGATIVE); Urine Blood Negative /ul (NEGATIVE); Urine Color Yellow; Urine Ketone Negative (NEGATIVE); Urine Nitrite Negative (NEGATIVE); Urine Protein Negative (NEGATIVE); Urine RBC None Seen /hpf (0-5); Urine Specific Gravity 1.025 SP.GR. (1.005-1.030); Urine Urobilinogen Normal (NORMAL); Urine WBC 0-5 /hpf (0-5)
[2020-02-19 13:43] LABS: Total Cells Counted 100
[2020-02-19 14:02] LABS: Band 2 % (0-2.0); Lymphocyte 7 % (20-51); Monocyte 5 % (0-9); Neutrophil 86 % (42-75); Platelet Estimate Normal (NORMAL)
[2020-02-19 14:03] LABS: Anisocytosis 2+
[2020-02-19 14:15] LABS: Albumin * 2.1 gm/dl (3.4-5.0); Anion Gap 16.3 mmol/L (6.8-13.8); Bilirubin, Total 0.7 mg/dL (0.0-1.1); Ca. Corrected For Albumin 9.4 mg/dL (8.4-10.2); Calcium * 8.2 mg/dL (7.9-10.9); Carbon Dioxide 16.1 mmol/L (24-32.6); Potassium 4.4 mmol/L (3.4-4.6); Total Protein 5.5 gm/dL (6.2-8.2); Troponin I 0.019 ng/mL (0.00-0.10)
[2020-02-19] MEDS ORDERED: AZITHROMYCIN 500 MG in DEXTROSE 5 % IN WATER 250 ML IV ONE ×2 (14:30)
[2020-02-19] MEDS ORDERED: ACETAMINOPHEN 1,000 MG/100 ML BTL IV ONE (14:32)
--- NOTE | 2020-02-19 17:07 | ERNOTE ---
Trauma/Assault HPI - Narrative Date of Service: 02/19/20 - General Stated Complaint: fall Time Seen by Provider: 02/19/20 10:55 Source: patient Exam Limitations: no limitations - Immun/Allergies/Home Medications Immunizations: IMMUNIZATION HX Immunizations Up to Date No History of Influenza Vaccine No Hx Pneumococcal Vaccination No Allergies/Adverse Reactions: Allergies influenza virus vaccine tvs [id number](65 years up) [From Fluad 6224-0768 (65 yr up)(PF)] Allergy (Intermediate, Verified 02/08/20 13:03) Hives vaccine adjuvant emulsion MF59C.1 [From Fluad (65 yr up)(PF)] Allergy (Intermediate, Verified 02/08/20 13:03) Hives carbamazepine [From Tegretol] Allergy (Mild, Verified 02/08/20 13:03) Hives Penicillins Allergy (Mild, Verified 02/08/20 13:03) Hives Home Medications: HOME MEDICATIONS Oxygen 0 .ROUTE .MEDSUPPLY #1 ea 08/02/19 [Last Taken Unknown] Acetaminophen [Tylenol] 650 mg PO Q6H PRN 02/08/20 [Last Taken Unknown] Albuterol Sulfate [Albuterol Sulfate 2.5 MG/0.5ML] 1 vial IH Q4H PRN 02/08/20 [Last Taken Unknown] Amiodarone HCl [Cordarone] 200 mg PO DAILY 02/08/20 [Last Taken Unknown] Apixaban [Eliquis] 5 mg PO BID 02/08/20 [Last Taken Unknown] Arginine/Ascorbate Sod/Luna AC [Arginaid Powder] 1 ea PO DAILY 02/08/20 [Last Taken Unknown] Aspirin 325 mg PO DAILY 02/08/20 [Last Taken Unknown] Atorvastatin Calcium 40 mg PO HS 02/08/20 [Last Taken Unknown] Bisacodyl [Laxative Suppository] 10 mg RC PRN PRN 02/08/20 [Last Taken Unknown] Ergocalciferol [Calciferol] 50,000 units PO MÉNDEZ 02/08/20 [Last Taken Unknown] Magnesium Hydroxide [Dulcolax] 400 mg PO Q6H PRN 02/08/20 [Last Taken Unknown] Melatonin 10 mg PO HS 02/08/20 [Last Taken Unknown] Omeprazole 20 mg PO BID 02/08/20 [Last Taken Unknown] Simethicone [Gas Relief] 80 mg PO Q6H PRN 02/08/20 [Last Taken Unknown] Collagenase Clostridium Hist. [Santyl] 1 appl TP DAILY #1 tube 02/16/20 [Last Taken Unknown] Dexamethasone [Decadron] 4 mg PO DAILY #21 tab 02/16/20 [Last Taken Unknown] Ferrous Sulfate 325 mg PO BIDWM #60 tab 02/16/20 [Last Taken Unknown] - History of Present Illness Narrative: [facility]. HE fell and landed on his right hip. Pain right hip and knee and ankle. He is not sure how he fell, but does not think he passed out. He has had multiple falls the last few days and has multiple bruises. Today injured right leg. He is on oxygen with his recent Covid diagnosis and hospitalization. He denies any chest pain. He states he generally feels miserable and has been feeling like this for "weeks". Location Occurred: Reports: other - [facility] Pain Location: Reports: other - right leg Method of Injury: Reports: fall Severity: severe Modifying Factors - (Improves): Reports: rest Modifying Factors - (Worsens): Reports: movement Loss of Consciousness: Reports: other - he is unsure but no clear LOC Associated Symptoms - Trauma: Denies: neck pain, chest pain, vomiting Review of Systems - Review of Systems Constitutional: Present: fatigue, malaise EYE: Present: no symptoms reported ENT: Absent: sore throat Respiratory: Present: cough Cardiology: Absent: chest pain Gastrointestinal/Abdominal: Absent: abdominal pain Genitourinary: Present: See HPI Musculoskeletal: Present: See HPI Skin: Present: See HPI Neurological: Present: other - generalized weakness but no acute unilateral focal weakness All Other Systems: All systems neg except as marked Medical History (Last Reviewed 02/19/20 @ 17:04 by Sancho uMro MD) COPD (chronic obstructive pulmonary disease) (Chronic) GERD (gastroesophageal reflux disease) (Chronic) Onset Date: Unknown Coronary artery disease (Chronic) Onset Date: Unknown Angina pectoris, unspecified (Inactive) Onset Date: Unknown Hyperlipidemia (Chronic) Onset Date: Unknown HTN (hypertension) (Chronic) Onset Date: Unknown CHF (congestive heart failure) (Chronic) Onset Date: 03/13/16 COVID-19 02/02/20 COPD (chronic obstructive pulmonary disease) Onset Date: Unknown Acute respiratory failure with hypoxia Onset Date: Unknown Brain aneurysm Onset Date: Unknown DVT (deep venous thrombosis) Onset Date: Unknown Depression Onset Date: Unknown History of stress test Onset Date: 07/26/02 History of stress test Onset Date: 02/15/99 Kidney calculi Onset Date: Unknown Subdural hemorrhage Onset Date: ~2004 2000, 2004 3 brain aneurysms Negative Colorectal Cancer Screening using Cologuard Onset Date: 01/20/17 Surgical History: Surgical History (Last Reviewed 02/19/20 @ 17:04 by Sancho Muro MD) H/O lithotripsy (Resolved) Onset Date: Unknown History of cholecystectomy (Resolved) Onset Date: ~2006 H/O brain surgery (Resolved) Onset Date: ~2004 x3; brain aneurysm History of cystoscopy Onset Date: 12/05/19 Dr. Alex Smith, [facility]. Flexible cystoscopy with bilateral retrograde pyelograms. Placement of bilateral 5 Serbian endhole catheters for intraoperative ureteral identification. History of orchiectomy, unilateral Onset Date: 12/05/19 Dr. Dom Cabrales, Dr. Alex Smith. [facility]. Right radical orchiectomy by inguinal approach. History of right inguinal hernia repair Onset Date: 12/05/19 Dr. Dom Cabrales, Dr. Alex Smith. [facility]. Repair of incarcerated strangulated right inguinal hernia. History of angioplasty Onset Date: ~1997 History of colonoscopy Onset Date: ~2000 History of coronary artery stent placement Onset Date: ~12/2008 Right. History of embolic filter insertion Onset Date: Unknown Family History: Family History (Last Reviewed 02/19/20 @ 17:04 by Sancho Muro MD) Mother Heart disease Brother Heart disease Sister Heart disease Social History: (Last Reviewed 02/19/20 @ 17:04 by Sancho Muro MD) Social History: adopted: No [facility]: No Marital status: household members: spouse number of children: 2 current occupational status: retired Service: Yes branch: [employer] status: discharged assignments: [employer] Tobacco: Smoking Status: Former smoker Alcohol: alcohol intake: current Alcohol type: beer alcohol intake frequency: holiday/special occasion Dietary Habits: caffeine: Yes Type: coffee Physical Exam - Physical Exam General Appearance: Present: alert, other - chronically ill appearing Head Exam: Absent: Shaw's Sign, raccoon eyes Eye Exam: Normal inspection: bilateral, PERRL: bilateral Ears, Nose, Throat: Present: normal ENT inspection Neck: Present: normal inspection, other - no vertebral tenderness Respiratory: Present: other - Coarse BS, no wheezing heraed, no active distress Cardiovascular/Chest: Present: regular rate, rhythm, other - extremities warm and well perfused Gastrointestinal/Abdominal: Present: normal bowel sounds, nontender, nondistended, soft Back Exam: Present: other - no specific vertebral tendneress. Extremity Exam: Present: other - [place] right lateral hip, right knee and right ankle, no deformity. Neurological Exam: Present: alert, other - no acute unilateral motor deficits. Generalized weakness noted. Skin Exam: Present: normal color, warm/dry, other - bruising noted from prior falls, no aciute lacerations requiring closure found. Progress - Results and Orders Patient's Lab Results:: I have reviewed the patient's lab results. - Vital Signs Patient's Vital Signs:: I have reviewed the patient's vital signs. Vital Signs: Vital Signs 02/19/20 10:48 02/19/20 10:53 02/19/20 11:53 Temperature 36 C 36.5 C Pulse Rate 71 104 H 74 Respiratory Rate 20 30 H 28 H Blood Pressure 107/46 142/74 127/87 O2 Sat by Pulse Oximetry 99 95 96 02/19/20 13:35 02/19/20 14:20 02/19/20 15:25 Temperature 36.7 C Pulse Rate 70 88 66 Respiratory Rate 32 H 18 21 H Blood Pressure 118/51 105/49 105/51 O2 Sat by Pulse Oximetry 98 96 96 02/19/20 16:24 02/19/20 16:37 Temperature Pulse Rate 63 63 Respiratory Rate 26 H 18 Blood Pressure 109/55 109/55 O2 Sat by Pulse Oximetry 98 99 - EKG EKG #1 EKG: NSR EKG read: Interp. by me EKG Comments: I have reviewed the tracing, the comp-lute calls possible acute AR. Patient has no CP, negative troponin (delay in obtaining EKG) and I feel the changes are non-specific and not entirely convincing for STEMI - X-Ray X-Ray #1 X-Ray: pelvis Interpretation: Interp. by me X-ray Comments: I personally reviewed x-ray images as well as official radiology report. X-Ray #2 X-Ray: chest Interpretation: Interp. by me X-ray Comments: I personally reviewed x-ray images as well as official radiology report. X-Ray #3 X-Ray: femur Interpretation: Interp. by me X-ray Comments: I personally reviewed x-ray images as well as official radiology report. X-Ray #4 X-Ray: ankle Interpretation: Interp. by me X-ray Comments: I personally reviewed x-ray images as well as official radiology report. - CT/Ultrasound CT/Ultrasound Narrative: I reviewed official radiology report for CT head. I also reviewed all x-ray images and reports for all obtained x-rays. - Progress/Reassessment Chief Complaint: Fall Progress Note-Subjective: 02/19/20 16:52 Patient has no fracturre from his fall. Did have urinary retention, treated with indwelling martinez. No chest pain, non-specific EKG (I do not feel diagnostic for STEMI) and no chest pain. I discussed this with Dr Walden who is retort feeder ground bone for admissions tonight. I Halo's the EKG to him. He felt that if second troponin negative he could be kept here. I obtained the second troponin which was negative and spoke again with Dr Walden who will admit. These are non-specific ST/T wave chages with negative trop at this time. I feel he has secondary bacterial pneumonia, IV ABx given. Still on oxygen. I called his Yanira and discussed all of this with her and she is agreeable to his admission here. Departure Clinical Impression: COVID-19, Secondary bacterial pneumonia, Falls, Right leg pain, Urinary retention, Oxygen dependent - Departure Disposition: Still a patient Condition: Fair Referrals: Maxi Whaley DO [Primary Care Provider] - Critical Care Time - Critical Care Critical Time Spent:: No
[2020-02-19] MEDS ORDERED: ACETAMINOPHEN 325 MG PO PRN (17:55)
[2020-02-19] MEDS ORDERED: SIMETHICONE 80 MG TAB.CHEW PO PRN (17:55)
[2020-02-19] MEDS ORDERED: ALBUTEROL SULFATE 2.5 MG/0.5 ML VIAL.NEB IH PRN ×2 (17:55→18:46)
--- NOTE | 2020-02-19 18:53 | HP ---
Chief Complaint - Chief Complaint Date of Service: 02/19/20 Time of Service: 18:29 Chief Complaint: Fall, right lower extremity pain, hypoxia History of Present Illness: 8-year-old male with presyncopal episode, fall in the custodial resulting in right lower extremity pain. Brought to the ER via EMS. Patient diagnosed with Covid roughly 2 weeks ago and has been requiring oxygen since. Patient has multiple bruises on his upper and lower extremities, wound on his right buttocks that is currently covered in a clean dry bandage. X-rays obtained in the ER of his pelvis, femur, and ankle showed no acute pathology. Patient also had head CT which showed some soft tissue swelling posterior scalp with extensive postsurgical changes and atrophy but no acute intracranial pathology seen. He had a mildly elevated white count at 12.8 with a left shift to 86%. Mildly elevated lactic acid 2.1. BMP unchanged from previous visit at 1608. 2 negative troponins. EKG showed possible acute MN but was not very impressive, agree to the ER read on this. Patient denies chest pain, diaphoresis, nausea or vomiting. Patient still with shortness of breath likely secondary to his Covid infection. Concern for possible superimposed bacterial pneumonia on top of his Covid infection due to worsening chest x-ray from previous day. ER doctor did start him on antibiotics for this. Patient initially was requiring 8 L oxygen via nasal cannula which is up from the 2 L he has been required at the custodial. Patient was placed under observation due to hypoxia and likely worsening infection in his lungs. Patient with history of COPD, coronary artery disease, hypertension, congestive heart failure, GERD. Medical History (Last Reviewed 02/19/20 @ 17:04 by Sancho Muro MD) COPD (chronic obstructive pulmonary disease) (Chronic) GERD (gastroesophageal reflux disease) (Chronic) Onset Date: Unknown Coronary artery disease (Chronic) Onset Date: Unknown Angina pectoris, unspecified (Inactive) Onset Date: Unknown Hyperlipidemia (Chronic) Onset Date: Unknown HTN (hypertension) (Chronic) Onset Date: Unknown CHF (congestive heart failure) (Chronic) Onset Date: 03/13/16 COVID-19 02/02/20 COPD (chronic obstructive pulmonary disease) Onset Date: Unknown Acute respiratory failure with hypoxia Onset Date: Unknown Brain aneurysm Onset Date: Unknown DVT (deep venous thrombosis) Onset Date: Unknown Depression Onset Date: Unknown History of stress test Onset Date: 07/26/02 History of stress test Onset Date: 02/15/99 Kidney calculi Onset Date: Unknown Subdural hemorrhage Onset Date: ~2004 2000, 2004 3 brain aneurysms Negative Colorectal Cancer Screening using Cologuard Onset Date: 01/20/17 Surgical History: Surgical History (Last Reviewed 02/19/20 @ 17:04 by Sancho Muro MD) H/O lithotripsy (Resolved) Onset Date: Unknown History of cholecystectomy (Resolved) Onset Date: ~2006 H/O brain surgery (Resolved) Onset Date: ~2004 x3; brain aneurysm History of cystoscopy Onset Date: 12/05/19 Dr. Alex Smith, [facility]. Flexible cystoscopy with bilateral retrograde pyelograms. Placement of bilateral 5 Wallisian endhole catheters for intraoperative ureteral identification. History of orchiectomy, unilateral Onset Date: 12/05/19 Dr. Dom Cabrales, Dr. Alex Smith. [facility]. Right radical orchiectomy by inguinal approach. History of right inguinal hernia repair Onset Date: 12/05/19 Dr. Dom Cabrales, Dr. Alex Smith. [facility]. Repair of incarcerated strangulated right inguinal hernia. History of angioplasty Onset Date: ~1997 History of colonoscopy Onset Date: ~2000 History of coronary artery stent placement Onset Date: ~12/2008 Right. History of embolic filter insertion Onset Date: Unknown Family History: Family History (Last Reviewed 02/19/20 @ 17:04 by Sancho Muro MD) Mother Heart disease Brother Heart disease Sister Heart disease Social History: (Last Reviewed 02/19/20 @ 17:04 by Sancho Muro MD) Social History: adopted: No custodial: No Marital status: household members: spouse number of children: 2 current occupational status: retired Service: Yes branch: [employer] status: discharged assignments: [employer] Tobacco: Smoking Status: Former smoker Alcohol: alcohol intake: current Alcohol type: beer alcohol intake frequency: holiday/special occasion Dietary Habits: caffeine: Yes Type: coffee Review Of Systems (GEN) - Review of Systems Generalized/Overall Review: Present: Weakness. Absent: Chills, Fever EENTM: Present: No Symptoms Reported Respiratory: Present: Cough, Shortness of Breath. Absent: Stridor, Wheezing Cardiac: Present: Edema - Chronic. Absent: Chest Pain Abdominal: Absent: Nausea, Vomiting Genitourinary: Present: No Symptoms Reported Musculoskeletal: Present: Joint Pain - Right hip and ankle Neurological: Absent: Headache, Weakness Skin: Present: No Symptoms Reported Endocrine: Present: No Symptoms Reported Immunizations: IMMUNIZATION HX Immunizations Up to Date No History of Influenza Vaccine No Hx Pneumococcal Vaccination No Allergies/Adverse Reactions: Allergies Allergy/AdvReac Type Severity Reaction Status Date / Time influenza virus vaccine tvs Allergy Intermediate Hives Verified 02/08/20 13:03 [id number](65 years up) [From Fluad (65 yr up)()] vaccine adjuvant emulsion Allergy Intermediate Hives Verified 02/08/20 13:03 [id number] [From Fluad (65 yr up)(PF)] carbamazepine [From Tegretol] Allergy Mild Hives Verified 02/08/20 13:03 Penicillins Allergy Mild Hives Verified 02/08/20 13:03 Home Medications: HOME MEDICATIONS Oxygen 0 .ROUTE .MEDSUPPLY #1 ea 08/02/19 [Last Taken Unknown] Acetaminophen [Tylenol] 650 mg PO Q6H PRN 02/08/20 [Last Taken Unknown] Albuterol Sulfate [Albuterol Sulfate 2.5 MG/0.5ML] 1 vial IH Q4H PRN 02/08/20 [Last Taken Unknown] Amiodarone HCl [Cordarone] 200 mg PO DAILY 02/08/20 [Last Taken Unknown] Apixaban [Eliquis] 5 mg PO BID 02/08/20 [Last Taken Unknown] Arginine/Ascorbate Sod/Luna AC [Arginaid Powder] 1 ea PO DAILY 02/08/20 [Last Taken Unknown] Aspirin 325 mg PO DAILY 02/08/20 [Last Taken Unknown] Atorvastatin Calcium 40 mg PO HS 02/08/20 [Last Taken Unknown] Bisacodyl [Laxative Suppository] 10 mg RC PRN PRN 02/08/20 [Last Taken Unknown] Ergocalciferol [Calciferol] 50,000 units PO MÉNDEZ 02/08/20 [Last Taken Unknown] Magnesium Hydroxide [Dulcolax] 400 mg PO Q6H PRN 02/08/20 [Last Taken Unknown] Melatonin 10 mg PO HS 02/08/20 [Last Taken Unknown] Omeprazole 20 mg PO BID 02/08/20 [Last Taken Unknown] Simethicone [Gas Relief] 80 mg PO Q6H PRN 02/08/20 [Last Taken Unknown] Collagenase Clostridium Hist. [Santyl] 1 appl TP DAILY #1 tube 02/16/20 [Last Taken Unknown] Dexamethasone [Decadron] 4 mg PO DAILY #21 tab 02/16/20 [Last Taken Unknown] Ferrous Sulfate 325 mg PO BIDWM #60 tab 02/16/20 [Last Taken Unknown] Exam - Exam Vital Signs: Vital Signs - Last Taken Temp 36.7 C 02/19/20 17:24 Pulse 68 02/19/20 17:59 Resp 20 02/19/20 17:24 BP 105/59 02/19/20 17:24 Pulse Ox 96 02/19/20 17:24 Constitutional: Present: Alert, Oriented x3, Cooperative, Mild distress, Elderly ENT Exam: Present: hard of hearing Eye Exam: bilateral eye: normal inspection, EOMI Neck: Present: non-tender, supple Back Exam: Present: normal inspection Respiratory: Present: decreased breath sounds, other - Coarse breath sounds throughout Cardiovascular/Chest: Present: regular rate, rhythm, no murmur, edema - 1+ pitting edema bilateral lower extremities Abdomen: Present: soft, nontender, nondistended Extremity: Present: leg pain - Right lower extremity pain with movement of his hip knee and ankle, Skin Exam: Present: normal color, warm/dry Neurologic: Present: no motor/sensory deficits, alert, oriented x 3 Appearance: Present: appropriate appearance, appropriate insight Eye contact: Present: cooperative, good eye contact, normal speech Thoughts: Present: normal thought pattern, normal mood /affect Diagnostic Studies: Abnormal Lab Results 02/19/20 02/19/20 02/19/20 Range/Units 13:32 13:32 13:32 WBC 12.8 H (4.0-10.5) K/mm3 RBC 3.80 L (4.7-6.0) M/mm3 Hgb 8.9 L (13.5-18.0) gm/dL Hct 32.1 L (42.0-52.0) % MCH 23.4 L (27-31) pg MCHC 27.7 L (32-36) g/dl RDW 18.9 H (11.5-14.0) % Neutrophils % (Manual) 86 H (42-75) % Lymphocytes % (Manual) 7 L (20-51) % Neutrophils # (Manual) 11.0 H (1.3-6.0) K/mm3 Lymphocytes # (Manual) 0.9 L (1.5-3.5) k/mm3 Chloride 113 H (97-106) mmol/L Carbon Dioxide 16.1 L (24-32.6) mmol/L Anion Gap 16.3 H (6.8-13.8) mmol/L BUN 42 H (6-23) mg/dL BUN/Creatinine Ratio 40.0 H (9.0-21.6) Lactic Acid, Venous (0.4-2.0) mmol/L ALT 17 L (19-67) U/L B-Natriuretic Peptide (5-650) pg/mL Total Protein 5.5 L (6.2-8.2) gm/dL Albumin 2.1 L (3.4-5.0) gm/dl Procalcitonin Less than 0.05 L (0.05-0.50) ng/mL 02/19/20 02/19/20 Range/Units 13:32 13:32 WBC (4.0-10.5) K/mm3 RBC (4.7-6.0) M/mm3 Hgb (13.5-18.0) gm/dL Hct (42.0-52.0) % MCH (27-31) pg MCHC (32-36) g/dl RDW (11.5-14.0) % Neutrophils % (Manual) (42-75) % Lymphocytes % (Manual) (20-51) % Neutrophils # (Manual) (1.3-6.0) K/mm3 Lymphocytes # (Manual) (1.5-3.5) k/mm3 Chloride (97-106) mmol/L Carbon Dioxide (24-32.6) mmol/L Anion Gap (6.8-13.8) mmol/L BUN (6-23) mg/dL BUN/Creatinine Ratio (9.0-21.6) Lactic Acid, Venous 2.1 H (0.4-2.0) mmol/L ALT (19-67) U/L B-Natriuretic Peptide 1608 H (5-650) pg/mL Total Protein (6.2-8.2) gm/dL Albumin (3.4-5.0) gm/dl Procalcitonin (0.05-0.50) ng/mL Laboratory Results WBC 12.8 K/mm3 (4.0-10.5) H 02/19/20 13:32 RBC 3.80 M/mm3 (4.7-6.0) L 02/19/20 13:32 Hgb 8.9 gm/dL (13.5-18.0) L 02/19/20 13:32 Hct 32.1 % (42.0-52.0) L 02/19/20 13:32 MCV 84.5 fl (78-100) 02/19/20 13:32 MCH 23.4 pg (27-31) L 02/19/20 13:32 MCHC 27.7 g/dl (32-36) L 02/19/20 13:32 RDW 18.9 % (11.5-14.0) H 02/19/20 13:32 Plt Count 338 K/mm3 (150-450) 02/19/20 13:32 MPV 8.9 fl (8-11.3) 02/19/20 13:32 Neutrophils % (Manual) 86 % (42-75) H 02/19/20 13:32 Band Neuts % (Manual) 2 % (0-2.0) 02/19/20 13:32 Lymphocytes % (Manual) 7 % (20-51) L 02/19/20 13:32 Monocytes % (Manual) 5 % (0-9) 02/19/20 13:32 Neutrophils # (Manual) 11.0 K/mm3 (1.3-6.0) H 02/19/20 13:32 Lymphocytes # (Manual) 0.9 k/mm3 (1.5-3.5) L 02/19/20 13:32 Monocytes # (Manual) 0.6 k/mm3 (0.0-1.0) 02/19/20 13:32 Platelet Estimate Normal (NORMAL) 02/19/20 13:32 Anisocytosis 2+ 02/19/20 13:32 Sodium 141 mmol/L (132-142) 02/19/20 13:32 Plasma Sodium 141 mmol/L (130-142) 02/19/20 13:32 Potassium 4.4 mmol/L (3.4-4.6) 02/19/20 13:32 Chloride 113 mmol/L (97-106) H 02/19/20 13:32 Carbon Dioxide 16.1 mmol/L (24-32.6) L 02/19/20 13:32 Anion Gap 16.3 mmol/L (6.8-13.8) H 02/19/20 13:32 BUN 42 mg/dL (6-23) H 02/19/20 13:32 Creatinine 1.05 mg/dL (0.4-1.4) 02/19/20 13:32 Est GFR (Non-Af Amer) 72 mL/min (60-130) 02/19/20 13:32 BUN/Creatinine Ratio 40.0 (9.0-21.6) H 02/19/20 13:32 Random Glucose 105 mg/dL (70-110) 02/19/20 13:32 Lactic Acid, Venous 2.1 mmol/L (0.4-2.0) H 02/19/20 13:32 Calcium 8.2 mg/dL (7.9-10.9) 02/19/20 13:32 Calcium Adj for Albumin 9.4 mg/dL (8.4-10.2) 02/19/20 13:32 Total Bilirubin 0.7 mg/dL (0.0-1.1) 02/19/20 13:32 AST 17 U/L (0-48) 02/19/20 13:32 ALT 17 U/L (19-67) L 02/19/20 13:32 Alkaline Phosphatase 72 U/L (50-170) 02/19/20 13:32 Creatine Kinase 183 U/L (0-259) 02/19/20 13:32 Troponin I 0.026 ng/mL (0.00-0.10) 02/19/20 15:48 B-Natriuretic Peptide 1608 pg/mL (5-650) H 02/19/20 13:32 Total Protein 5.5 gm/dL (6.2-8.2) L 02/19/20 13:32 Albumin 2.1 gm/dl (3.4-5.0) L 02/19/20 13:32 Procalcitonin Less than 0.05 ng/mL (0.05-0.50) L 02/19/20 13:32 Urine Color Yellow 02/19/20 13:23 Urine Appearance Clear (CLEAR) 02/19/20 13:23 Urine pH 6.0 pH (5.0-7.0) 02/19/20 13:23 Ur Specific [place] 1.025 SP.GR. (1.005-1.030) 02/19/20 13:23 Urine Protein Negative mg/dL (NEGATIVE) 02/19/20 13:23 Urine Glucose (UA) Negative mg/dL (NEGATIVE) 02/19/20 13:23 Urine Ketones Negative mg/dL (NEGATIVE) 02/19/20 13:23 Urine Blood Negative /ul (NEGATIVE) 02/19/20 13:23 Urine Nitrate Negative (NEGATIVE) 02/19/20 13:23 Urine Bilirubin Negative mg/dl (NEGATIVE) 02/19/20 13:23 Urine Urobilinogen Normal EU/dl (NORMAL) 02/19/20 13:23 Ur Leukocyte Esterase Negative /ul (NEGATIVE) 02/19/20 13:23 Urine RBC None seen /hpf (0-5) 02/19/20 13:23 Urine WBC 0-5 /hpf (0-5) 02/19/20 13:23 Ur Epithelial Cells 0-5 /hpf (0-5) 02/19/20 13:23 Urine Bacteria None seen (NONE) 02/19/20 13:23 Urine Culture Comments No culture indicated 02/19/20 13:23 Assessment/Plan - Narrative Narrative: 80-year-old male admitted under observation due to hypoxia and worsening lung disease. A lot of his chest x-ray is likely due to his recent Covid infection but concern for possible superimposed bacterial infection which could explain why he was requiring more oxygen, patient started on antibiotics for this. Patient initially was requiring 8 L of oxygen via nasal cannula in the ER but since moved to the floor is back down to his baseline oxygen requirement of 2/3 L. Patient feels well aside from some right lower extremity pain from the fall but there is no acute bony pathology seen on his x-rays. Will monitor him overnight to make sure his respiratory status continues to improve and likely home tomorrow with continued outpatient treatment of his pneumonia if he remained stable like he is. Patient has history of COPD. Chronic medications restarted. Patient has history of CHF, BNP back to baseline. Will provide very gentle fluid resuscitation due to mildly elevated lactic acid at 2.1. Recheck lactic acid this evening. Heart healthy diet ordered for patient. Patient with history of hypertension, will continue chronic medications. Monitor his blood pressure. Patient with history of acid reflux, continue omeprazole. Patient with Covid precautions due to infection being less than 20 days old. Repeat CBC, CMP in the morning. Nurse to call questions or concerns. 1 hour critical care time spent with patient. - Assessment/Plan (1) Pneumonia Problem: Resolved Qualifiers: (2) History of severe acute respiratory syndrome coronavirus 2 (SARS-CoV-2) disease Problem: Acute (3) Hypoxia Problem: Acute (4) Shortness of breath Problem: Acute (5) Chronic respiratory failure Problem: Chronic Qualifiers: (6) COPD (chronic obstructive pulmonary disease) Problem: Chronic Qualifiers: (7) Falls Problem: Acute (8) Right leg pain Problem: Acute (9) HTN (hypertension) Problem: Chronic Qualifiers: (10) CHF (congestive heart failure) Problem: Chronic
[2020-02-19] MEDS ORDERED: NORMAL SALINE 500 ML IV PRN (18:54)
[2020-02-19] MEDS ORDERED: ACETAMINOPHEN 325 MG TABLET PO PRN (18:56)
[2020-02-19] MEDS: APIXABAN 5 MG TABLET PO SCH (20:32)
[2020-02-19] MEDS: ROSUVASTATIN CALCIUM 20 MG TABLET PO SCH (20:33)
[2020-02-19] MEDS ORDERED: OMEPRAZOLE 20 MG PO SCH (21:00)
[2020-02-19] MEDS: NORMAL SALINE 1,000 ML IV PRN (23:56)
[2020-02-20 06:47] LABS: Hematocrit 28.6 % (42.0-52.0); Mean Cell Volume 83.4 fl (78-100); Mean Corpuscular Hemoglobin 23.3 pg (27-31); Mean Platelet Volume 8.9 fl (8-11.3); Neutrophil # 8.9 K/mm3 (1.3-6.0); Neutrophil % 76.4 % (42-75.0); Platelet Count 323 K/mm3 (150-450); Red Blood Count 3.43 M/mm3 (4.7-6.0); Red Cell Distribution Width 18.8 % (11.5-14.0); White Blood Count 11.6 K/mm3 (4.0-10.5)
[2020-02-20 07:01] LABS: Albumin * 2.1 gm/dl (3.4-5.0); Anion Gap 13.3 mmol/L (6.8-13.8); BUN/Creatinine Ratio 35.8 (9.0-21.6); Bilirubin, Total 0.9 mg/dL (0.0-1.1); Calcium * 7.8 mg/dL (7.9-10.9); Carbon Dioxide 19.9 mmol/L (24-32.6); Potassium 4.2 mmol/L (3.4-4.6)
[2020-02-20] MEDS: AMIODARONE HCL 200 MG TABLET PO SCH (08:12)
[2020-02-20] MEDS: APIXABAN 5 MG TABLET PO SCH ×2 (08:12→20:38)
[2020-02-20] MEDS: ASPIRIN 325 MG TABLET.DR PO SCH (08:12)
[2020-02-20] MEDS ORDERED: ASPIRIN 325 MG PO SCH (09:00)
[2020-02-20] MEDS ORDERED: DEXAMETHASONE 2 MG TABLET PO SCH (09:00)
[2020-02-20] MEDS: NORMAL SALINE 1,000 ML IV PRN (10:00)
[2020-02-20] MEDS: COLLAGENASE CLOSTRIDIUM HIST. 30 APPL TUBE TP SCH (14:27)
[2020-02-20] MEDS: PANTOPRAZOLE SODIUM 20 MG TABLET.DR PO SCH (19:26)
[2020-02-20] MEDS: ROSUVASTATIN CALCIUM 20 MG TABLET PO SCH (20:38)
--- NOTE | 2020-02-20 23:46 | PN ---
Subjective - Date and Time Seen Date: 02/20/20 Time: 08:30 Subjective Narrative: Horace had a large bowel movement today and when doing so his oxygen dropped down to 80% and he required increas of oxygen from 3lpm to 5lpm. He was then able to wean down to 4lpm. He had some abdominal pain and difficulty urinating. He was given a martinez in the ER. This was removed today but awaiting him to urinate. He is still feeling weak, sore, and short of breath. Objective - Vitals Vitals: Last Vital Signs Temp 36.9 C 02/20/20 18:45 Pulse 61 02/20/20 21:39 Resp 20 02/20/20 21:39 BP 116/29 02/20/20 21:39 Pulse Ox 92 L 02/20/20 21:39 - Abnormal Lab Findings Abnormal Lab Findings: Abnormal Lab Results 02/20/20 02/20/20 Range/Units 06:40 06:40 WBC 11.6 H (4.0-10.5) K/mm3 RBC 3.43 L (4.7-6.0) M/mm3 Hgb 8.0 L (13.5-18.0) gm/dL Hct 28.6 L (42.0-52.0) % MCH 23.3 L (27-31) pg MCHC 28.0 L (32-36) g/dl RDW 18.8 H (11.5-14.0) % Immature Gran % (Auto) 1.00 H (0.001-0.429) % Immature Gran # (Auto) 0.12 H (0.000-0.0310) K/mm3 Neutrophils % 76.4 H (42-75.0) % Lymphocytes % 11.9 L (20-51) % Monocytes % 10.4 H (0.0-9) % Neutrophils # 8.9 H (1.3-6.0) K/mm3 Lymphocytes # 1.38 L (1.5-3.5) k/mm3 Monocytes # 1.2 H (0.0-1.0) k/mm3 Chloride 112 H (97-106) mmol/L Carbon Dioxide 19.9 L (24-32.6) mmol/L BUN 29 H (6-23) mg/dL BUN/Creatinine Ratio 35.8 H (9.0-21.6) Calcium 7.8 L (7.9-10.9) mg/dL ALT 13 L (19-67) U/L Total Protein 5.0 L (6.2-8.2) gm/dL Albumin 2.1 L (3.4-5.0) gm/dl - Exam Constitutional: Present: Alert, Oriented x3 Respiratory: Present: lungs clear, normal breath sounds, no respiratory distress Cardiovascular/Chest: Present: irregularly irregular Abdomen: Present: Normal bowel sounds, soft, nontender, nondistended Cauti Physician Documentation - Urinary Catheter Management Urethral Date of Insertion: 02/19/20 Time of Insertion: 16:25 Date of Removal: 02/20/20 Time of Removal: 12:00 Assessment/Plan Plan Narrative: Horace is a 80 yo male that was admitted due to concerns about respiratory failure from COVID. Since being admitted he has required 2-5lpm of oxygen which may be at his new baseline secondary to COVID-19. He does not appear to be in any respiratory distress. He does not feel comfortable going back to the intermediate today due to soreness, but I am a little hesitant to discharge him due to his increase in oxygen need from 3lpm to 5lpm. He has not easily weaned back to 3lpm. I am also hesitant about his urinary function. Martinez was removed and will monitor urinary function. He will remain in observation another night and I anticipate discharging to intermediate tomorrow unless he has signs of worsening respiratory condition. Chest xray in the ER showed pneumonia secondary to COVID19, but he has already undergone treatment with azithromycin and remdesivir. His chest xray is worse, but in comparison to a chest xray obtained at the very start of his COVID infection about 15 days ago. I do not believe further antibiotics need to be given. - Problems/Diagnosis (1) Chronic respiratory failure Problem: Acute Qualifiers: Respiratory failure complication: hypoxia Qualified Code(s): J96.11 - Chronic respiratory failure with hypoxia (2) Urinary retention Problem: Acute (3) COVID-19 Problem: Acute
[2020-02-21] MEDS: NORMAL SALINE 1,000 ML IV PRN (04:02)
[2020-02-21] MEDS: PANTOPRAZOLE SODIUM 20 MG TABLET.DR PO SCH ×2 (06:39→16:49)
[2020-02-21] MEDS ORDERED: FUROSEMIDE 10 MG/ML VIAL IV ONE (08:39)
[2020-02-21] MEDS: AZITHROMYCIN 500 MG in DEXTROSE 5 % IN WATER 250 ML IV SCH ×2 (09:24)
[2020-02-21] MEDS: APIXABAN 5 MG TABLET PO SCH ×2 (09:25→20:10)
[2020-02-21] MEDS: AMIODARONE HCL 200 MG TABLET PO SCH (09:25)
[2020-02-21] MEDS: DEXAMETHASONE SODIUM PHOSP/PF 10 MG/ML VIAL IV SCH (09:25)
[2020-02-21] MEDS: ASPIRIN 325 MG TABLET.DR PO SCH (09:25)
[2020-02-21] MEDS: COLLAGENASE CLOSTRIDIUM HIST. 30 APPL TUBE TP SCH (09:26)
--- NOTE | 2020-02-21 16:52 | PN ---
Subjective - Date and Time Seen Date: 02/21/20 Time: 12:30 Subjective Narrative: Horace reports feeling ok. Still having a little abdominal pain. He has been urinating well since having martinez removed. This morning his oxygen level dropped into 80% and he was increased to 6.5lpm. He was given IV lasix and started on azithromycin/rocephin for pneumonia. He was switched to inpatient status as he oxygen requirements are worsening. Objective - Vitals Vitals: Last Vital Signs Temp 36.8 C 02/21/20 14:48 Pulse 62 02/21/20 14:48 Resp 21 H 02/21/20 14:48 BP 100/57 02/21/20 14:48 Pulse Ox 98 02/21/20 14:48 - Exam Constitutional: Present: Alert, Oriented x3, Cooperative Respiratory: Present: lungs clear, normal breath sounds Cardiovascular/Chest: Present: regular rate, rhythm, no murmur Abdomen: Present: Normal bowel sounds, soft, nontender, nondistended Skin Exam: Present: normal color, warm/dry, no cyanosis Appearance: Present: appropriate appearance, appropriate insight Eye contact: Present: cooperative, good eye contact, normal speech Thoughts: Present: normal thought pattern, no apparent hallucination Cauti Physician Documentation - Urinary Catheter Management Urethral Date of Insertion: 02/19/20 Time of Insertion: 16:25 Date of Removal: 02/20/20 Time of Removal: 12:00 Assessment/Plan Plan Narrative: Horace's condition is worsening. Potentially from developing pnuemonia. Will start azithromycin and rocephin. Will diurese with IV lasix 40mg. Will give IV dexamethasone instead of oral. Continue eliquis. Continue oxygen to keep sats 88% or greater. Currently on 6.5lpm. He has failed outpatient trial and is needing more oxygen then can be managed at long term. He will require inpatient treatment to treat pneumonia and attempt to wean back to a more manageable oxygen requirement at the long term and closer to his baseline oxygen need for around 2-3lpm. - Problems/Diagnosis (1) Acute and chronic respiratory failure Problem: Acute Qualifiers: Respiratory failure complication: hypoxia Qualified Code(s): J96.21 - Acute and chronic respiratory failure with hypoxia (2) Pneumonia due to COVID-19 virus Problem: Acute (3) COVID-19 Problem: Acute (4) Urinary retention Problem: Resolved (5) Chronic respiratory failure Problem: Chronic Qualifiers: Respiratory failure complication: hypoxia Qualified Code(s): J96.11 - Chronic respiratory failure with hypoxia
[2020-02-21] MEDS: ROSUVASTATIN CALCIUM 20 MG TABLET PO SCH (20:10)
[2020-02-22] MEDS: NORMAL SALINE 1,000 ML IV PRN (03:12)
[2020-02-22] MEDS: PANTOPRAZOLE SODIUM 20 MG TABLET.DR PO SCH ×2 (07:29→17:54)
[2020-02-22] MEDS: ASPIRIN 325 MG TABLET.DR PO SCH (08:14)
[2020-02-22] MEDS: AMIODARONE HCL 200 MG TABLET PO SCH (08:14)
[2020-02-22] MEDS: APIXABAN 5 MG TABLET PO SCH ×2 (08:15→21:52)
[2020-02-22] MEDS: DEXAMETHASONE SODIUM PHOSP/PF 10 MG/ML VIAL IV SCH (08:15)
[2020-02-22] MEDS: AZITHROMYCIN 500 MG in DEXTROSE 5 % IN WATER 250 ML IV SCH ×2 (08:17)
[2020-02-22] MEDS ORDERED: FUROSEMIDE 10 MG/ML VIAL IV ONE (08:25)
[2020-02-22 09:32] LABS: Albumin * 1.7 gm/dl (3.4-5.0); Anion Gap 15.9 mmol/L (6.8-13.8); BUN/Creatinine Ratio 52.1 (9.0-21.6); Bilirubin, Total 0.9 mg/dL (0.0-1.1); Ca. Corrected For Albumin 9.6 mg/dL (8.4-10.2); Calcium * 8.1 mg/dL (7.9-10.9); Carbon Dioxide 13.7 mmol/L (24-32.6); Potassium 4.6 mmol/L (3.4-4.6); Total Protein 5.4 gm/dL (6.2-8.2)
[2020-02-22 10:04] LABS: Hematocrit 28.4 % (42.0-52.0); Hemoglobin 8.1 gm/dL (13.5-18.0); Mean Cell Volume 82.6 fl (78-100); Mean Corpuscular Hemoglobin 23.5 pg (27-31); Mean Corpuscular Hgb Conc 28.5 g/dl (32-36); Neutrophil # 13.9 K/mm3 (1.3-6.0); Neutrophil % 87.5 % (42-75.0); Platelet Count 293 K/mm3 (150-450); Red Blood Count 3.44 M/mm3 (4.7-6.0); Red Cell Distribution Width 18.3 % (11.5-14.0); White Blood Count 15.9 K/mm3 (4.0-10.5)
[2020-02-22] MEDS: COLLAGENASE CLOSTRIDIUM HIST. 30 APPL TUBE TP SCH (10:05)
--- NOTE | 2020-02-22 18:17 | PN ---
Subjective - Date and Time Seen Date: 02/22/20 Time: 16:45 Subjective Narrative: Horace reports feeling better today. No shortness of breath this afternoon. He did have shortness of breath this morning and was increased to oxymask at 10lpm but then was given Lasix and improved during the afternoon to 3lpm. He reports some soreness of tailbone, but otherwise no concerns. Case management discussed hospice with him today and he was in agreement with hospice and agrees to going to [facility] tomorrow with hospice. Objective - Vitals Vitals: Last Vital Signs Temp 36.6 C 02/22/20 17:47 Pulse 60 02/22/20 17:47 Resp 18 02/22/20 17:47 BP 108/53 02/22/20 17:47 Pulse Ox 92 L 02/22/20 17:47 - Abnormal Lab Findings Abnormal Lab Findings: Abnormal Lab Results 02/22/20 02/22/20 Range/Units 08:25 09:57 WBC 15.9 H D (4.0-10.5) K/mm3 RBC 3.44 L (4.7-6.0) M/mm3 Hgb 8.1 L (13.5-18.0) gm/dL Hct 28.4 L (42.0-52.0) % MCH 23.5 L (27-31) pg MCHC 28.5 L (32-36) g/dl RDW 18.3 H (11.5-14.0) % Immature Gran % (Auto) 0.90 H (0.001-0.429) % Immature Gran # (Auto) 0.15 H (0.000-0.0310) K/mm3 Neutrophils % 87.5 H (42-75.0) % Lymphocytes % 5.9 L (20-51) % Neutrophils # 13.9 H (1.3-6.0) K/mm3 Lymphocytes # 0.93 L (1.5-3.5) k/mm3 Sodium 130 L (132-142) mmol/L Carbon Dioxide 13.7 L (24-32.6) mmol/L Anion Gap 15.9 H (6.8-13.8) mmol/L BUN 25 H (6-23) mg/dL Est GFR (Non-Af Amer) 179 H D (60-130) mL/min BUN/Creatinine Ratio 52.1 H (9.0-21.6) Random Glucose 147 H D (70-110) mg/dL ALT 16 L (19-67) U/L Total Protein 5.4 L (6.2-8.2) gm/dL Albumin 1.7 L (3.4-5.0) gm/dl - Exam Constitutional: Present: Alert, Oriented x3, Cooperative ENT Exam: Present: hearing grossly normal Respiratory: Present: lungs clear, no respiratory distress Cardiovascular/Chest: Present: regular rate, rhythm, no edema Abdomen: Present: Normal bowel sounds, soft, nontender, nondistended Skin Exam: Present: normal color, warm/dry, other - dime sized superficial ulceration of sacrum Appearance: Present: appropriate appearance, appropriate insight Eye contact: Present: cooperative, good eye contact, normal speech Cauti Physician Documentation - Urinary Catheter Management Urethral Date of Insertion: 02/19/20 Time of Insertion: 16:25 Date of Removal: 02/20/20 Time of Removal: 12:00 Assessment/Plan Plan Narrative: Horace began the day having increased shortness of breath and oxygenation wors ened requiring him to go up to 10lpm. He was given lasix and continued on dexamethasone, azithromycin, and rocephin. Through the day he has been weaned down to 3lpm. computer science instructor discussed with him the option of hospice due to his COPD and chronic respiratory failure. Prior to COVID-19 he was even on 2lpm continuous due to COPD. He agreed to hospice although he would like to continue treatment for COVID-19 pneumonia. Plan to discharge to [facility] with hospice tomorrow. - Problems/Diagnosis (1) Acute and chronic respiratory failure Problem: Acute Qualifiers: Respiratory failure complication: hypoxia Qualified Code(s): J96.21 - Acute and chronic respiratory failure with hypoxia (2) Pneumonia due to COVID-19 virus Problem: Acute (3) COVID-19 Problem: Acute (4) Sacral decubitus ulcer Problem: Acute Qualifiers: Pressure injury stage: stage 1 Qualified Code(s): L89.151 - Pressure ulcer of sacral region, stage 1 (5) Urinary retention Problem: Resolved (6) Chronic respiratory failure Problem: Chronic Qualifiers: Respiratory failure complication: hypoxia Qualified Code(s): J96.11 - Chronic respiratory failure with hypoxia (7) COPD (chronic obstructive pulmonary disease) Problem: Chronic Qualifiers: COPD type: unspecified COPD
[2020-02-22] MEDS: ROSUVASTATIN CALCIUM 20 MG TABLET PO SCH (21:52)
[2020-02-23] MEDS: PANTOPRAZOLE SODIUM 20 MG TABLET.DR PO SCH (06:30)
[2020-02-23] MEDS: ASPIRIN 325 MG TABLET.DR PO SCH (08:45)
[2020-02-23] MEDS: AMIODARONE HCL 200 MG TABLET PO SCH (08:45)
[2020-02-23] MEDS: COLLAGENASE CLOSTRIDIUM HIST. 30 APPL TUBE TP SCH (08:46)
[2020-02-23] MEDS: AZITHROMYCIN 500 MG in DEXTROSE 5 % IN WATER 250 ML IV SCH ×2 (08:46)
[2020-02-23] MEDS: DEXAMETHASONE SODIUM PHOSP/PF 10 MG/ML VIAL IV SCH (08:46)
[2020-02-23] MEDS: APIXABAN 5 MG TABLET PO SCH (08:46)
--- NOTE | 2020-02-23 09:47 | DS ---
(1) Acute and chronic respiratory failure Problem: Resolved Qualifiers: Respiratory failure complication: hypoxia Qualified Code(s): J96.21 - Acute and chronic respiratory failure with hypoxia (2) Pneumonia due to COVID-19 virus Problem: Acute (3) COVID-19 Problem: Acute (4) Sacral decubitus ulcer Problem: Acute Qualifiers: Pressure injury stage: stage 1 Qualified Code(s): L89.151 - Pressure ulcer of sacral region, stage 1 (5) Urinary retention Problem: Resolved (6) Chronic respiratory failure Problem: Chronic Qualifiers: Respiratory failure complication: hypoxia Qualified Code(s): J96.11 - Chronic respiratory failure with hypoxia (7) COPD (chronic obstructive pulmonary disease) Problem: Chronic Qualifiers: COPD type: unspecified COPD Date of Discharge:: 02/23/20 Hospital Course: Horace is a 80 yo male admitted due to acute on chronic respiratory failure and pneumonia secondary to COVID-19. He was increased in oxygen requirements up to 10lpm at the most and treated with rocephin, azithromycin, dexamethasone, and oxygen. He gradually improved and is back down to 3lpm of oxygen. Hospice was discussed with [facility] and he agreed to going back to [facility] with hospice due to his COPD and chronic respiratory failure. He appears to be back at his baseline and will be discharged today. Procedures Performed: none Results and Findings: Pending Mircobiology Results 02/19/20 13:32 Blood Blood Culture - Preliminary NO GROWTH AFTER 48 HOURS 02/19/20 13:32 Blood Blood Culture - Preliminary NO GROWTH AFTER 48 HOURS Lab Pending Results 02/19/20 00:00: Lactic Acid, Venous Cancelled 02/19/20 13:23: Urine Color Yellow, Urine Appearance Clear, Urine pH 6.0, Ur Specific [place] 1.025, Urine Protein Negative, Urine Glucose (UA) Negative, Urine Ketones Negative, Urine Blood Negative, Urine Nitrate Negative, Urine Bilirubin Negative, Urine Urobilinogen Normal, Ur Leukocyte Esterase Negative, Urine RBC None seen, Urine WBC 0-5, Ur Epithelial Cells 0-5, Urine Bacteria None seen, Urine Culture Comments No culture indicated 02/19/20 13:32: WBC 12.8 H, RBC 3.80 L, Hgb 8.9 L, Hct 32.1 L, MCV 84.5, MCH 23.4 L, MCHC 27.7 L, RDW 18.9 H, Plt Count 338, MPV 8.9, Neutrophils % (Manual) 86 H, Band Neuts % (Manual) 2, Lymphocytes % (Manual) 7 L, Monocytes % (Manual) 5, Neutrophils # (Manual) 11.0 H, Lymphocytes # (Manual) 0.9 L, Monocytes # (Manual) 0.6, Platelet Estimate Normal, Anisocytosis 2+ 02/19/20 13:32: Sodium 141, Plasma Sodium 141, Potassium 4.4, Chloride 113 H, Carbon Dioxide 16.1 L, Anion Gap 16.3 H, BUN 42 H, Creatinine 1.05, Est GFR (Non-Af Amer) 72, BUN/Creatinine Ratio 40.0 H, Random Glucose 105, Calcium 8.2, Calcium Adj for Albumin 9.4, Total Bilirubin 0.7, AST 17, ALT 17 L, Alkaline Phosphatase 72, Troponin I 0.019, Total Protein 5.5 L, Albumin 2.1 L 02/19/20 13:32: Procalcitonin Less than 0.05 L 02/19/20 13:32: B-Natriuretic Peptide 1608 H 02/19/20 13:32: Lactic Acid, Venous 2.1 H 02/19/20 13:32: Creatine Kinase 183 02/19/20 15:48: Troponin I 0.026 02/19/20 19:35: Lactic Acid, Venous 3.1 H* 02/20/20 00:00: Lactic Acid, Venous 1.3 02/20/20 06:40: WBC 11.6 H, RBC 3.43 L, Hgb 8.0 L, Hct 28.6 L, MCV 83.4, MCH 23.3 L, MCHC 28.0 L, RDW 18.8 H, Plt Count 323, MPV 8.9, Immature Gran % (Auto) 1.00 H, Immature Gran # (Auto) 0.12 H, Neutrophils % 76.4 H, Lymphocytes % 11.9 L, Monocytes % 10.4 H, Eosinophils % 0.2, Basophils % 0.1, Nucleated RBC % 0.0, Neutrophils # 8.9 H, Lymphocytes # 1.38 L, Monocytes # 1.2 H, Eosinophils # 0.0, Absolute Basophils 0.0 02/20/20 06:40: Sodium 141, Plasma Sodium 141, Potassium 4.2, Chloride 112 H, Carbon Dioxide 19.9 L, Anion Gap 13.3, BUN 29 H, Creatinine 0.81, Est GFR (Non- Af Amer) 98 D, BUN/Creatinine Ratio 35.8 H, Random Glucose 82, Calcium 7.8 L, Calcium Adj for Albumin 9.0, Total Bilirubin 0.9, AST 15, ALT 13 L, Alkaline Phosphatase 67, Total Protein 5.0 L, Albumin 2.1 L 02/22/20 08:25: Sodium 130 L, Plasma Sodium 131, Potassium 4.6, Chloride 105, Carbon Dioxide 13.7 L, Anion Gap 15.9 H, BUN 25 H, Creatinine 0.48, Est GFR (Non-Af Amer) 179 H D, BUN/Creatinine Ratio 52.1 H, Random Glucose 147 H D, Calcium 8.1, Calcium Adj for Albumin 9.6, Total Bilirubin 0.9, AST 35, ALT 16 L, Alkaline Phosphatase 61, Total Protein 5.4 L, Albumin 1.7 L 02/22/20 09:57: WBC 15.9 H D, RBC 3.44 L, Hgb 8.1 L, Hct 28.4 L, MCV 82.6, MCH 23.5 L, MCHC 28.5 L, RDW 18.3 H, Plt Count 293, MPV 9.0, Immature Gran % (Auto) 0.90 H, Immature Gran # (Auto) 0.15 H, Neutrophils % 87.5 H, Lymphocytes % 5.9 L, Monocytes % 5.5, Eosinophils % 0.1, Basophils % 0.1, Nucleated RBC % 0.0, Neutrophils # 13.9 H, Lymphocytes # 0.93 L, Monocytes # 0.9, Eosinophils # 0.0, Absolute Basophils 0.0 Discharge Location: [facility] Disposition: Hospice Home Home Health Agency: [facility] Condition: Fair Discharge Activity: Activity as tolerated Discharge Diet: General/regular food Referrals: Maxi Whaley DO [Primary Care Provider] - Additional Patient Instructions (free text): [facility] upon return to [facility]. Please call report and fax orders to both [facility] and [facility] at discharge. Continue oxygen at 3lpm may titrate oxygen for shortness of breath and to keep oxygen 88% or greater. Prescriptions (Any new or edited meds): Lorazepam [Lorazepam Intensol] 1 mg PO Q1H PRN #30 oral.conc PRN Reason: anxiety Transmission Status: Sent to [facility] Morphine Sulfate [Morphine Sulfate Conc. Oral Solution] 5 mg PO Q1H PRN #30 ml PRN Reason: Severe Pain (Pain Scale 7-10) Transmission Status: Sent to [facility] Complete Home Medications List: Complete Home Medication List: Oxygen 0 .ROUTE .MEDSUPPLY #1 ea 08/02/19 Acetaminophen [Tylenol] 650 mg PO Q6H PRN 02/08/20 Albuterol Sulfate [Albuterol Sulfate 2.5 MG/0.5ML] 1 vial IH Q4H PRN 02/08/20 Amiodarone HCl [Cordarone] 200 mg PO DAILY 02/08/20 Apixaban [Eliquis] 5 mg PO BID 02/08/20 Aspirin 325 mg PO DAILY 02/08/20 Bisacodyl [Laxative Suppository] 10 mg RC PRN PRN 02/08/20 Magnesium Hydroxide [Dulcolax] 400 mg PO Q6H PRN 02/08/20 Melatonin 10 mg PO HS 02/08/20 Omeprazole 20 mg PO BID 02/08/20 Simethicone [Gas Relief] 80 mg PO Q6H PRN 02/08/20 Collagenase Clostridium Hist. [Santyl] 1 appl TP DAILY #1 tube 02/16/20 Dexamethasone [Decadron] 4 mg PO DAILY #21 tab 02/16/20 Ferrous Sulfate 325 mg PO BIDWM #60 tab 02/16/20 Lorazepam [Lorazepam Intensol] 1 mg PO Q1H PRN #30 oral.conc 02/23/20 Morphine Sulfate [Morphine Sulfate Conc. Oral Solution] 5 mg PO Q1H PRN #30 ml 02/23/20 Forms: Patient Portal Registration
[2020-02-23 10:20] VITALS: BP 98/58
== END 2020-02-23 11:30 | disposition hospice, home (50) | DRG 177 ==
LOC: SCU 10:45 → ER 10:45 → SCU 17:05
PROVIDERS: ADMIT Family Medicine; ATTEND Family Medicine